=== PATIENT | male | born 1945 | race Caucasian/White ===

== ENCOUNTER 2017-02-10 16:47 | Emergency (ER) | payer MEDICARE, OTHER ==
[2017-02-10 17:14] VITALS: BP 159/90
[2017-02-10 17:16] LABS: CHLORIDE,CL 105 mmol/L (98-107); SODIUM,NA 141 mmol/L (136-145)
--- NOTE | 2017-02-10 17:42 | EDM.PDOC ---
ED HPI GENERAL MEDICAL PROBLEM - General Chief Complaint: Lower Extremity Injury/Pain Stated Complaint: Bilateral calf pain Time Seen by Provider: 02/10/17 17:15 Source of Information: Reports: Patient History Limitations: Reports: No limitations - History of Present Illness INITIAL COMMENTS - FREE TEXT/NARRATIVE: The patient presents with complaint of low back pain in a belt-like fashion and tight and cramping calves that "feel like a rope". He has had the back pain for years and it has increased over the past several months and he was in to see his PCP last week who prescribed PT for him which is to begin soon. He also had had longstanding tightness and cramping in his calves. He has had this for the past several months but it was increasingly severe today. He denies a history of DVT or PE. He denies a history of CO or Stroke. He denies other symptoms or complaints. 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 Has partial upper dentures Cardiovascular History: Reports: High cholesterol, Hypertension, Other (see below) Other Cardiovascular History: Hx. of muscles around heart becoming tight at times. Small blockage on back side of heart. Treating with medication. No stents needed at current time Gastrointestinal History: Reports: GERD Other Gastrointestinal History: Perez's esophageal ulceration Genitourinary History: Reports: BPH, Renal calculus Musculoskeletal History: Reports: Back pain, chronic Endocrine/Metabolic History: Reports: Obesity/BMI 30+ - Infectious Disease History Infectious Disease History: Reports: Chicken pox, Measles - Past Surgical History Cardiovascular Surgical History: Reports: Other (see below) Other Cardiovascular Surgeries/Procedures: Angiograms GI Surgical History: Reports: Colonoscopy, EGD Social & Family History - Tobacco Use Smoking Status *Q: Former Smoker Years of Tobacco use: 50 Packs/Tins Daily: 0.2 Used Tobacco, but Quit: Yes Month Tobacco Last 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 ED EXAM, GENERAL - Physical Exam Exam: See Below Exam Limited By: No limitations General Appearance: alert, WD/WN, no apparent distress Eye Exam: bilateral eye: EOMI, normal inspection Ears: normal external exam, normal canal, hearing grossly normal, normal TMs Ear Exam: bilateral ear: auricle normal, canal normal, TM normal Nose: normal inspection, normal mucosa, no blood Throat/Mouth: Normal inspection, Normal lips, Normal teeth, Normal gums, Normal oropharynx, Normal voice Head: atraumatic, normocephalic Neck: normal inspection, supple, non-tender, full range of motion. No: lymphadenopathy (L), lymphadenopathy (R), tender lateral, tender midline Respiratory/Chest: no respiratory distress, lungs clear, normal breath sounds, no accessory muscle use, chest non-tender Cardiovascular: normal peripheral pulses, regular rate, rhythm, no edema, no gallop, no murmur, no rub GI/Abdominal: normal bowel sounds, soft, non tender, no organomegaly, no distention, no abnormal bruit. No: distended, guarding, rigid, rebound Back Exam: normal inspection, full range of motion, paraspinal tenderness. No: CVA tenderness (L) (Lower lumbar spine with tight muscles. ), CVA tenderness (R) , vertebral tenderness Extremities: normal range of motion, no pedal edema, normal capillary refill, other (Pain on palpation of R > L calf. No erythema or swelling. No palpable cords. Jatin sign equivocal bilaterally. Tight calf muscles R > L.) Neurological: alert, oriented, CN II-XII intact, normal cognition, normal gait, normal reflexes, no motor/sensory deficits Psychiatric: normal affect, normal mood Skin Exam: Warm, Dry, Intact, Normal color, No rash Lymphatic: no adenopathy Course - Vital Signs Last Recorded V/S: Last Vital Signs Temp 37.0 C 02/10/17 17:13 Pulse 78 02/10/17 17:13 Resp 20 02/10/17 17:13 BP 159/90 H 02/10/17 17:13 Pulse Ox 93 L 02/10/17 17:13 - Orders/Labs/Meds Orders: Active Orders 24 hr Category Date Time Status Diazepam [Valium] Med 02/10/17 17:36 Once 10 mg IM ONETIME ONE Labs: Laboratory Tests 02/10/17 02/10/17 02/10/17 Range/Units 17:00 17:00 17:00 WBC 7.1 (4.0-10.2) K/uL RBC 4.80 (4.33-5.41) M/uL Hgb 14.6 (13.1-16.8) g/dL Hct 44.1 (39.0-49.0) % MCV 91.9 (84.0-98.0) fL MCH 30.4 (28.2-33.3) pg MCHC 33.1 (31.7-36.0) g/dL RDW 12.6 (11.2-14.1) % Plt Count 232 (150-350) K/uL Neut % (Auto) 65.7 (45.0-80.0) % Lymph % (Auto) 23.8 (10.0-50.0) % Oliver % (Auto) 7.9 (2.0-14.0) % Eos % (Auto) 1.6 (0.0-5.0) % Baso % (Auto) 1.0 (0.0-2.0) % Neut # (Auto) 4.66 (1.40-7.00) K/uL Lymph # (Auto) 1.69 (0.50-3.50) K/uL Oliver # (Auto) 0.56 (0.00-1.00) K/uL Eos # (Auto) 0.11 (0.00-0.50) K/uL Baso # (Auto) 0.07 (0.00-0.20) K/uL D-Dimer, Quantitative 171 (0-400) ng/mL Sodium 141 (136-145) mmol/L Potassium 4.1 (3.5-5.1) mmol/L Chloride 105 (98-107) mmol/L Carbon Dioxide 30.8 (21.0-32.0) mmol/L BUN 18 (7-18) mg/dL Creatinine 1.17 (0.51-1.17) mg/dL Est Cr Clr Drug Dosing 63.47 mL/min Estimated GFR (MDRD) > 60 mL/min Glucose 97 (74-106) mg/dL Calcium 8.9 (8.5-10.1) mg/dL Total Bilirubin 0.5 (0.2-1.0) mg/dL AST 23 (15-37) U/L ALT 30 (12-78) U/L Alkaline Phosphatase 73 (46-116) IU/L C-Reactive Protein < 0.1 (<=0.9) mg/dL Total Protein 7.1 (6.4-8.2) g/dL Albumin 3.8 (3.4-5.0) g/dL Specimen Type Urine Color Urine Appearance Urine pH (5.0-9.0) Ur Specific Mathews (1.005-1.030) Urine Protein (NEGATIVE) mg/dL Urine Glucose (UA) (NEGATIVE) mg/dL Urine Ketones (NEGATIVE) mg/dL Urine Occult Blood (NEGATIVE) Urine Nitrite (NEGATIVE) Urine Bilirubin (NEGATIVE) Urine Urobilinogen (0.2-1.0) E.U./dL Ur Leukocyte Esterase (NEGATIVE) Urine RBC /HPF Urine WBC /HPF Ur Epithelial Cells /LPF Urine Bacteria (NONE TO FEW) /HPF 02/10/17 Range/Units 17:00 WBC (4.0-10.2) K/uL RBC (4.33-5.41) M/uL Hgb (13.1-16.8) g/dL Hct (39.0-49.0) % MCV (84.0-98.0) fL MCH (28.2-33.3) pg MCHC (31.7-36.0) g/dL RDW (11.2-14.1) % Plt Count (150-350) K/uL Neut % (Auto) (45.0-80.0) % Lymph % (Auto) (10.0-50.0) % Oliver % (Auto) (2.0-14.0) % Eos % (Auto) (0.0-5.0) % Baso % (Auto) (0.0-2.0) % Neut # (Auto) (1.40-7.00) K/uL Lymph # (Auto) (0.50-3.50) K/uL Oliver # (Auto) (0.00-1.00) K/uL Eos # (Auto) (0.00-0.50) K/uL Baso # (Auto) (0.00-0.20) K/uL D-Dimer, Quantitative (0-400) ng/mL Sodium (136-145) mmol/L Potassium (3.5-5.1) mmol/L Chloride (98-107) mmol/L Carbon Dioxide (21.0-32.0) mmol/L BUN (7-18) mg/dL Creatinine (0.51-1.17) mg/dL Est Cr Clr Drug Dosing mL/min Estimated GFR (MDRD) mL/min Glucose (74-106) mg/dL Calcium (8.5-10.1) mg/dL Total Bilirubin (0.2-1.0) mg/dL AST (15-37) U/L ALT (12-78) U/L Alkaline Phosphatase (46-116) IU/L C-Reactive Protein (<=0.9) mg/dL Total Protein (6.4-8.2) g/dL Albumin (3.4-5.0) g/dL Specimen Type Urinvoid Urine Color Yellow Urine Appearance Clear Urine pH 5.5 (5.0-9.0) Ur Specific Mathews >= 1.030 (1.005-1.030) Urine Protein Negative (NEGATIVE) mg/dL Urine Glucose (UA) Negative (NEGATIVE) mg/dL Urine Ketones Negative (NEGATIVE) mg/dL Urine Occult Blood Trace-lysed H (NEGATIVE) Urine Nitrite Negative (NEGATIVE) Urine Bilirubin Negative (NEGATIVE) Urine Urobilinogen 0.2 (0.2-1.0) E.U./dL Ur Leukocyte Esterase Negative (NEGATIVE) Urine RBC 0-5 /HPF Urine WBC Not seen /HPF Ur Epithelial Cells Not seen /LPF Urine Bacteria Not seen (NONE TO FEW) /HPF Departure - Departure Time of Disposition: 17:42 Disposition: Home, Self-Care 01 Clinical Impression: Muscle spasm of calf, Muscle spasm of back, Muscle cramps Forms: ED Department Discharge - My Orders Last 24 Hours: My Active Orders 02/10/17 17:36 Diazepam [Valium] 10 mg IM ONETIME ONE - Assessment/Plan Last 24 Hours: My Active Orders 02/10/17 17:36 Diazepam [Valium] 10 mg IM ONETIME ONE Assessment:: Muscle cramps and spasm of lower back and bilateral calves. Plan: 1. Discussed given history, exam, and lab findings muscle cramp and spasm most likely cause of pain. Discussed DVT unlikely but possibility is not 0%. Discussed I did not feel given above that transfer for Duplex ultrasound was indicated but discussed with patient and who agree and refuse further evaluation at this time. 2. Toradol 60 mg IM in ER. 3. Valium 10 mg IM in ER. 4. Offered prescription of Flexeril but patient and indicated it has not worked in the past and they would like to assess how ER regimen helps with pain and discuss oral muscle relaxers with their PCP. 5. Followup with PCP next week in clinic. 6. Return to ER with refractory chest pain, shortness of breath, increased/ refractory pain of calves or swelling.
[2017-02-10] MEDS ORDERED: Ketorolac 60 MG/2 ML SDV IM ONE (18:03)
== END 2017-02-10 18:55 | disposition home or self-care (01) ==
LOC: LL.ED 16:47
DX: M62.830 Muscle spasm of back (principal); M62.831 Muscle spasm of calf; E78.00 Pure hypercholesterolemia, unspecified; I10 Essential (primary) hypertension; K21.9 Gastro-esophageal reflux disease without esophagitis; E66.9 Obesity, unspecified; Z87.891 Personal history of nicotine dependence; Z88.5 Allergy status to narcotic agent; Z79.899 Other long term (current) drug therapy
CPT/HCPCS: 36415; 80053; 81001; 85025; 85379; 86140; 96372; 99283; J1885; J3360

== ENCOUNTER 2017-05-28 12:32 | Inpatient (IN) | payer MEDICARE, OTHER ==
[2017-05-28] MEDS ORDERED: Ticagrelor 90 MG Tab PO ONE (12:35)
[2017-05-28] MEDS ORDERED: Aspirin 81 MG Tab.Chew CHEW ONE (12:35)
[2017-05-28] MEDS ORDERED: Famotidine 20 MG/2 ML SDV IVPUSH ONE (12:35)
[2017-05-28] MEDS ORDERED: Metoprolol Tartrate 5 MG/5 ML SDV IVPUSH ONE (12:35)
--- NOTE | 2017-05-28 12:35 | EDM.PDOC ---
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 He has had some nonspecific fatigue during the last week. He did not take any medications for the above symptoms, although secondary to finances he has been only taking 20 mg of Prilosec daily rather than the previously recommended 40 mg daily dose. The patient denies any heart flutter, dizziness, orthostasis, orthopnea, diaphoresis, paresthesias, recent decreased exercise tolerance, or any other anginal-type symptoms. No recent history of abdominal pain, heartburn, nausea, diarrhea, melena, gross hematochezia, or any food intolerance, including fatty foods, etc., despite his noncompliance with Prilosec as above. The patient also denies any recent fever, cough, wheezing, dyspnea, etc.. No history of recent headaches, visual changes, diplopia, change in mental status, or other change in neurological status. Onset: Today, Sudden Onset Date: 05/28/17 Onset Time: 08:30 Duration: Constant Location: Reports: Chest. Denies: Head, Face, Neck, Abdomen, Back, Upper Extremity, Left, Upper Extremity, Right, Radiates to Quality: Reports: Pressure, Same as Previous Episode Severity: Moderate Improves with: Reports: None Worsens with: Reports: None Context: Reports: Other (As above) Associated Symptoms: Reports: Chest Pain. 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 Denies: Cataract, Glaucoma, Hard of Hearing, Macular Degeneration, Retinal Detachment Other HEENT History: Grain dust allergic rhinitis, patient wears glasses Cardiovascular History: Reports: Blood Clots/VTE/DVT, CAD, High Cholesterol, Hypertension, Other (See Below). 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 Denies : Acute Renal Failure, Chronic Renal Insuffiency, Dialysis, STD, Urinary Incontinence, UTI, Recurrent Other Genitourinary History: Right-sided urolithiasis 2 in 2001 and 2002 with lithotripsy required as below Musculoskeletal History: Reports: Arthritis, Back Pain, Chronic, Neck Pain, Chronic, Osteoarthritis. Denies: Fracture, Gout, RA, SLE Neurological History: Reports: None. Denies: Alzheimers Disease, Brain Injury, Cerebral Aneurysms, Concussion, CVA, Headaches, Chronic, Head Trauma, Migraines , Neuropathy, Peripheral, Parkinson's, Seizure, TIA Psychiatric History: Reports: None. Denies: Abuse, Victim of, ADD, ADHD, Addiction, Anxiety, Depression, Psych Hospitalization(s), PTSD, Suicide Attempt , Suicidal Ideation Endocrine/Metabolic History: Reports: None. Denies: Diabetes, Type I, Diabetes , Type II, IDDM Hematologic History: Reports: None. Denies: Anemia, B12 Deficiency, Blood Transfusion(s), Iron Deficiency Immunologic History: Reports: None. Denies: AIDS, HIV, SLE Oncologic (Cancer) History: Reports: None. Denies: Basal Cell Carcinoma, Colon , Hodgkin's Lymphoma, Leukemia, Malignant Melanoma, Non-Hodgkin's Lymphoma, Prostate, Squamous Cell Carcinoma Dermatologic History: Reports: None. Denies: Eczema, Psoriasis - Infectious Disease History Infectious Disease History: Reports: Chicken Pox, Measles. Denies: C-Difficile , Meningitis, Mononucleosis, MRSA, Mumps, Pertussis (Whooping Cough), Rheumatic Fever, Rubella, Scarlet Fever, Shingles, TB, VRE - Past Surgical History Head Surgeries/Procedures: Reports: None HEENT Surgical History: Reports: Oral Surgery, Tonsillectomy, Other (See Below) . Denies: Cataract Surgery, Eye Surgery, Laser Surgery, LASIK, Myringotomy w Tube(s), Naso-Sinus Surgery Other HEENT Surgeries/Procedures: Tonsillectomy at age 12, multiple teeth extractions with partial upper dentures currently Cardiovascular Surgical History: Denies: Coronary Artery Stent, Pacer, Percutaneous Transluminal Angioplasty, Varicose Respiratory Surgical History: Reports: None. Denies: Lung Biopsies, Thoracentesis GI Surgical History: Reports: Colonoscopy, EGD, Polypectomy, Other (See Below). Denies: Appendectomy, Cholecystectomy, Hernia, Abdominal, Hernia, Inguinal, Hernia Repair/Other Other GI Surgeries/Procedures: EGD on 06/03/15, 03/05/15, and 05/08/13 with previous history of excision of multiple benign colonic polyps, last colonoscopy on 05/09/12 Male Surgical History: Reports: Circumcision, Renal Calculus, Ureteral Stent , Other (See Below). Denies: Prostate Biopsy, TURBT-Transurethral Resection of Bladder Tumor, Vasectomy Other Male Surgeries/Procedures: History of right-sided lithotripsy and subsequent ureteral stent placement in 2001 and 2002, circumcision as an infant Endocrine Surgical History: Reports: None. Denies: Thyroid Biopsy Neurological Surgical History: Reports: None. Denies: C-Spine, Discectomy, Laminectomy, Lumbar Spine, Scoliosis, Vertebroplasty Musculoskeletal Surgical History: Reports: None. Denies: Arthroscopic Knee, Arthroscopic Procedure, Carpal Tunnel, Ganglion Cyst, Joint Replacement, ORIF, Shoulder Surgery Oncologic Surgical History: Reports: None Dermatological Surgical History: Reports: None - Past Imaging History Past Imaging History: Reports: Angiography (Mildly positive heart catheterization in 2008 as above), Stress Testing (Normal exercise cardiac stress test and 2008) Social & Family History - Family History HEENT: Reports: Macular Degeneration, Other (See Below). Denies: Cataract, Glaucoma, Retinal Detachment Other HEENT Family History: Brother with macular degeneration Cardiac: Reports: CAD, NC, Other (See Below). Denies: Afib, Aneurysm, Arrhythmia, Blood Clots/VTE/DVT, Heart Failure, Heart Murmur, High Cholesterol, Hypertension, PVD/COD, Syncope Other Cardiac Family History: Brothers 2 with history of MIs with 1 brother having a triple CABG in his 50s, Respiratory: Reports: COPD, Other (See Below). Denies: Asthma, PE, Pneumothorax , Sleep Apnea, TB Other Respiratory Family Hisory: Brother with history of COPD with no history of tobacco use GI: Reports: None. Denies: Celiac Disease, Cholelithiasis, Colon Polyps, Inflammatory Bowel Disease, Irritable Bowel Syndrome, PUD : Reports: None. Denies: Dialysis, Renal Calculus, Renal Disease/ Insufficiency OBGYN: Reports: None. Denies: Endometriosis, Recurrent Spontaneous Musculoskeletal: Reports: Arthritis, Osteoarthritis, Other (See Below). Denies : Gout, RA, SLE Other Musculoskeletal Family History: Osteoarthritis in mother Neurological: Reports: CVA, Other (See Below). Denies: Alzheimers Disease, Cerebral Aneurysms, Dementia, Frequent Repetitive Habits (TICS), Migraines, MS, Neuropathy, Diabetic, Neuropathy, Peripheral, Parkinson's, Seizure, TIA Other Neurological Family History: Brother with CVA in his 80s Psychiatric: Reports: None. Denies: Abuse, Victim of, ADD, ADHD, Anxiety, Depression, Psych Hospitalization(s), PTSD, Suicide Attempt Endocrine/Metabolic: Reports: None. Denies: Diabetes, Type I, Diabetes, type II , Hypothyroidism, IDDM Hematologic: Reports: None. Denies: Anemia Immunologic: Reports: None. Denies: AIDS, HIV, SLE Dermatologic: Reports: None. Denies: Eczema, Psoriasis Oncologic: Reports: Other (See Below) Other Oncologic Family History: Multiple maternal uncles and aunts from unknown type of cancers in their 70s and 80s, mother with unknown type of fatal metastatic abdominal cancer in her 70s - Tobacco Use Smoking Status *Q: Current Every Day Smoker Tobacco Use Within Last Twelve Months: Snuff/Dip Years of Tobacco use: 50 (Started chewing tobacco use at age 15 with previous maximum use of 2 boxes per week and previous occasional cigarette use) Packs/Tins Daily: 0.1 Used Tobacco, but Quit: Yes Smoking Cessation Information Provided To Patient: Yes Second Hand Smoke Exposure: No Second Hand Smoke Education Provided: No - Caffeine Use Caffeine Use: Reports: Soda (4 sodas per day). Denies: Coffee, Energy Drinks, Tea - Alcohol Use Alcohol Use History: Yes Days Per Week of Alcohol Use: 0 (DWI in about 1983 although no history of alcohol abuse or treatment) Number of Drinks Per Day: 2 (Usually beer twice per month) Total Drinks Per Week: 0 Alcohol Use in Last Twelve Months: Yes Alcohol Use Frequency: Socially - Recreational Drug Use Recreational Drug Use: No Drug Use in Last 12 Months: No Recreational Drug Type: Denies: Amphetamines (Speed), Cocaine, Heroin, Inhalants (Glues, Solvents, Aerosols), LSD (Acid), Marijuana/Hashish, Methamphetamine, Morphine - Living Situation & Occupation Living situation: Reports: (2000, no children), with Family (With ) 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 Denies: Fever, Chills , Weakness, Night Sweats, Diaphoresis, Decreased Appetite, Weight Loss, Weight Gain HEENT: Reports: Glasses. Denies: Contact Lenses, Dental Pain, Ear Discharge, Ear Pain, Eye Pain, Hearing Loss, Rhinitis, Sinus Problem, Throat Pain, Vertigo , Vision Change Respiratory: Reports: No Symptoms, Cough. Denies: Shortness of Breath, Wheezing , Pleuritic Chest Pain, Sputum Cardiovascular: Reports: Chest Pain. Denies: Blood Pressure Problem, Claudication, Dyspnea on Exertion, Edema, Lightheadedness, Orthopnea, Palpitations, Syncope Endocrine: Reports: Fatigue GI/Abdominal: Reports: No Symptoms. Denies: Abdominal Pain, Anorexia, Black Stool, Bloody Stool, Constipation, Diarrhea, Decreased Appetite, Difficulty Swallowing, Distension, Flatus, Hematemesis, Hematochezia, Melena, Nausea, Stool Incontinence, Vomiting : Reports: No Symptoms. Denies: Discharge, Dysuria, Flank Pain, Frequency, Hematuria, Incontinence, Pain, Urgency, Urinary Retention Musculoskeletal: Reports: No Symptoms. Denies: Neck Pain, Shoulder Pain, Arm Pain, Back Pain, Leg Pain Skin: Reports: No Symptoms. Denies: Diaphoresis, Bruising, Wound Neurological: Reports: No Symptoms. Denies: Confusion, Dizziness, Headache, Numbness, Paresthesia, Tingling, Weakness Psychiatric: Reports: No Symptoms. Denies: Agitation, Anxiety, Confusion, Depression, Hallucinations Hematologic/Lymphatic: Reports: No Symptoms Immunologic: Reports: No Symptoms ED EXAM, GENERAL - Physical Exam Exam: See Below Exam Limited By: No Limitations General Appearance: Alert, WD/WN, No Apparent Distress Eye Exam: Bilateral Eye: EOMI, Normal Inspection (No nystagmus), PERRL Ears: Normal External Exam, Normal Canal, Hearing Grossly Normal, Normal TMs Nose: Normal Inspection, Normal Mucosa, No Blood Throat/Mouth: Normal Inspection, Normal Lips, Normal Gums, Normal Oropharynx, Normal Voice, No Airway Compromise. No: Normal Teeth (Partial upper dentures of multiple missing teeth lowers), Dysphagia, Inflammation Head: Atraumatic, Normocephalic. No: Facial Swelling, Facial Tenderness, Sinus Tenderness Neck: Supple, Non-Tender, Full Range of Motion, Carotid Bruit (Mild bilateral carotid bruits). No: Lymphadenopathy (L), Lymphadenopathy (R), Thyromegaly Respiratory/Chest: No Respiratory Distress, Lungs Clear, Normal Breath Sounds, No Accessory Muscle Use, Chest Non-Tender. No: Pleural Rub, Retractions Cardiovascular: Normal Peripheral Pulses, Regular Rate, Rhythm, No Edema, No Gallop, No JVD, No Murmur, No Rub. No: Gallop/S3, Gallop/S4, Friction Rub Peripheral Pulses: 2+: Radial (L), Radial (R), Dorsalis Pedis (L), Dorsalis Pedis (R) GI/Abdominal: Normal Bowel Sounds, Soft, Non-Tender, No Organomegaly, No Distention, No Abnormal Bruit, No Mass, Pelvis Stable. No: Guarding (Male) Exam: Deferred Rectal (Males) Exam: Deferred Back Exam: Normal Inspection, Full Range of Motion. No: CVA Tenderness (L), CVA Tenderness (R), Muscle Spasm Extremities: Normal Inspection, Normal Range of Motion, Non-Tender, No Pedal Edema, Normal Capillary Refill. No: Pedal Edema, Jatin's Sign Neurological: Alert, Oriented, CN II-XII Intact, Normal Cognition, Normal Gait, Normal Reflexes (Negative Babinski's), No Motor/Sensory Deficits Psychiatric: Normal Affect, Normal Mood Skin Exam: Warm, Dry, Intact, Normal Color, No Rash. No: Ecchymosis, Petechiae , Wound/Incision Lymphatic: No Adenopathy EKG INTERPRETATION EKG Date: 05/28/17 Time: 12:41 Rhythm: NSR Rate (Beats/Min): 76 [place]: Normal (Left cardiac axis) QRS: RBBB (QRS interval of 0.12 seconds representing a complete right bundle branch block with borderline T-wave inversion in lead V1 with T-wave inversion in lead 3) ST-T: Normal QT: Normal IL/PQ Interval: 0.15 seconds with mild poor R-wave progression in the anterior leads Comparison: NA - No Prior EKG EKG Interpretation Comments: 1. No acute ischemic changes 2. Complete right bundle branch block Course - Vital Signs Last Recorded V/S: Last Vital Signs Temp 37.2 C 05/28/17 12:32 Pulse 62 05/28/17 15:24 Resp 15 05/28/17 15:24 BP 147/84 H 05/28/17 15:24 Pulse Ox 100 05/28/17 15:24 Vital Signs - 24 hr 05/28/17 05/28/17 05/28/17 12:32 12:35 13:00 Temperature [ 37.2 C Temporal] Pulse, Peripheral Pulse, 79 66 84 Peripheral [ Pulse Oximetry] Respiratory 18 15 17 Rate Blood Pressure Blood Pressure 159/76 H 147/86 H 146/70 H [Right Upper Arm] O2 Sat by Pulse 100 100 100 Oximetry O2 Sat by Pulse 100 Oximetry [ Nasal Cannula] 05/28/17 05/28/17 05/28/17 13:10 13:15 14:02 Temperature [ Temporal] Pulse, 80 Peripheral Pulse, 70 69 Peripheral [ Pulse Oximetry] Respiratory 16 15 Rate Blood Pressure 151/76 H Blood Pressure 151/76 H 145/75 H [Right Upper Arm] O2 Sat by Pulse 100 100 Oximetry O2 Sat by Pulse Oximetry [ Nasal Cannula] 05/28/17 05/28/17 05/28/17 14:08 15:06 15:24 Temperature [ Temporal] Pulse, Peripheral Pulse, 63 62 Peripheral [ Pulse Oximetry] Respiratory 14 15 Rate Blood Pressure Blood Pressure 145/97 H 147/84 H [Right Upper Arm] O2 Sat by Pulse 100 100 Oximetry O2 Sat by Pulse 100 Oximetry [ Nasal Cannula] - Orders/Labs/Meds Orders: Active Orders 24 hr Category Date Time Status Cardiac Monitoring [RC] . DIRECTED Care 05/28/17 12:35 Active EKG Documentation Completion [RC] ASDIRECTED Care 05/28/17 12:35 Active Oxygen Therapy, ED [RC] CONTINUOUS Care 05/28/17 12:35 Active Peripheral IV Care [RC] . DIRECTED Care 05/28/17 12:35 Active Pulse Oximetry [RC] CONTINUOUS Care 05/28/17 12:35 Active Up With Assistance [RC] PFP Care 05/28/17 12:35 Active Vital Signs [RC] PFP Care 05/28/17 12:35 Active Nothing per Oral Now Diet [DIET] Diet 05/28/17 Breakfast Active Chest 1V Frontal [CR] Stat Exams 05/28/17 12:35 Taken Furosemide [Lasix] Med 05/28/17 14:00 Active 40 mg IVPUSH Q8H Sodium Chloride 0.9% [Saline Flush] Med 05/28/17 12:35 Active 10 ml FLUSH ASDIRECTED PRN Obtain Past Medical Record [OM.PC] Urgent Oth 05/28/17 12:35 Active Peripheral IV Insertion Adult [OM.PC] Stat Oth 05/28/17 12:35 Ordered Resuscitation Status Stat Resus Stat 05/28/17 12:35 Ordered Medication Orders Furosemide (Lasix) 40 mg IVPUSH Q8H [facility] Last Admin: 05/28/17 13:57 Dose: 40 mg Sodium Chloride (Saline Flush) 10 ml FLUSH ASDIRECTED PRN PRN Reason: Keep Vein Open Last Admin: 05/28/17 13:58 Dose: 10 ml Admin: 05/28/17 13:18 Dose: 10 ml Admin: 05/28/17 13:15 Dose: 10 ml Labs: Laboratory Tests 05/28/17 05/28/17 05/28/17 Range/Units 12:55 12:55 12:55 WBC 6.6 (4.0-10.2) K/uL RBC 4.90 (4.33-5.41) M/uL Hgb 15.3 (13.1-16.8) g/dL Hct 45.1 (39.0-49.0) % MCV 92.0 (84.0-98.0) fL MCH 31.2 (28.2-33.3) pg MCHC 33.9 (31.7-36.0) g/dL RDW 12.8 (11.2-14.1) % Plt Count 249 (150-350) K/uL Neut % (Auto) 63.9 (45.0-80.0) % Lymph % (Auto) 27.3 (10.0-50.0) % [place] % (Auto) 7.2 (2.0-14.0) % Eos % (Auto) 1.4 (0.0-5.0) % Baso % (Auto) 0.2 (0.0-2.0) % Neut # (Auto) 4.20 (1.40-7.00) K/uL Lymph # (Auto) 1.79 (0.50-3.50) K/uL [place] # (Auto) 0.47 (0.00-1.00) K/uL Eos # (Auto) 0.09 (0.00-0.50) K/uL Baso # (Auto) 0.01 (0.00-0.20) K/uL PT 10.3 (9.8-11.7) SEC INR 1.0 APTT 25.1 (23.5-30.0) SEC D-Dimer, Quantitative 152 (0-400) ng/mL Sodium (136-145) mmol/L Potassium (3.5-5.1) mmol/L Chloride (98-107) mmol/L Carbon Dioxide (21.0-32.0) mmol/L BUN (7-18) mg/dL Creatinine (0.51-1.17) mg/dL Est Cr Clr Drug Dosing Estimated GFR (MDRD) mL/min Glucose (74-106) mg/dL Lactic Acid (0.4-2.0) mmol/L Uric Acid (2.6-7.2) mg/dL Calcium (8.5-10.1) mg/dL Magnesium (1.8-2.4) mg/dL Total Bilirubin (0.2-1.0) mg/dL AST (15-37) U/L ALT (12-78) U/L Alkaline Phosphatase (46-116) IU/L Creatine Kinase (26-308) U/L Creatine Kinase Index (0.0-2.5) % CK-MB (CK-2) (0.00-3.60) ng/mL Troponin I (0.000-0.056) ng/mL Sbe-P-Bidiihxaxeb Pept (0-125) pg/mL Total Protein (6.4-8.2) g/dL Albumin (3.4-5.0) g/dL TSH, Ultra Sensitive (0.358-3.740) mIU/mL 05/28/17 05/28/17 Range/Units 12:55 12:55 WBC (4.0-10.2) K/uL RBC (4.33-5.41) M/uL Hgb (13.1-16.8) g/dL Hct (39.0-49.0) % MCV (84.0-98.0) fL MCH (28.2-33.3) pg MCHC (31.7-36.0) g/dL RDW (11.2-14.1) % Plt Count (150-350) K/uL Neut % (Auto) (45.0-80.0) % Lymph % (Auto) (10.0-50.0) % [place] % (Auto) (2.0-14.0) % Eos % (Auto) (0.0-5.0) % Baso % (Auto) (0.0-2.0) % Neut # (Auto) (1.40-7.00) K/uL Lymph # (Auto) (0.50-3.50) K/uL [place] # (Auto) (0.00-1.00) K/uL Eos # (Auto) (0.00-0.50) K/uL Baso # (Auto) (0.00-0.20) K/uL PT (9.8-11.7) SEC INR APTT (23.5-30.0) SEC D-Dimer, Quantitative (0-400) ng/mL Sodium 139 (136-145) mmol/L Potassium 3.7 (3.5-5.1) mmol/L Chloride 102 (98-107) mmol/L Carbon Dioxide 30.9 (21.0-32.0) mmol/L BUN 15 (7-18) mg/dL Creatinine 1.01 (0.51-1.17) mg/dL Est Cr Clr Drug Dosing TNP Estimated GFR (MDRD) > 60 mL/min Glucose 102 (74-106) mg/dL Lactic Acid 1.1 (0.4-2.0) mmol/L Uric Acid 5.4 (2.6-7.2) mg/dL Calcium 8.7 (8.5-10.1) mg/dL Magnesium 1.9 (1.8-2.4) mg/dL Total Bilirubin 0.8 (0.2-1.0) mg/dL AST 16 (15-37) U/L ALT 27 (12-78) U/L Alkaline Phosphatase 76 (46-116) IU/L Creatine Kinase 95 (26-308) U/L Creatine Kinase Index 1.5 (0.0-2.5) % CK-MB (CK-2) 1.40 (0.00-3.60) ng/mL Troponin I 0.009 (0.000-0.056) ng/mL [id number]-Jurlfumnjwk Pept 286 H (0-125) pg/mL Total Protein 7.1 (6.4-8.2) g/dL Albumin 3.8 (3.4-5.0) g/dL TSH, Ultra Sensitive 0.893 (0.358-3.740) mIU/mL Meds: Medications Generic Name Dose Route Start Last Admin Trade Name Freq PRN Reason Stop Dose Admin Furosemide 40 mg 05/28/17 14:00 05/28/17 13:57 Lasix IVPUSH 40 mg Q8H ERICA Administration Sodium Chloride 10 ml 05/28/17 12:35 05/28/17 13:58 Saline Flush FLUSH 10 ml ASDIRECTED PRN Administration Keep Vein Open Discontinued Medications Generic Name Dose Route Start Last Admin Trade Name Freq PRN Reason Stop Dose Admin Aspirin 324 mg 05/28/17 12:35 05/28/17 13:08 Aspirin CHEW 05/28/17 12:36 324 mg ONETIME ONE Administration Famotidine 40 mg 05/28/17 12:35 05/28/17 13:15 Pepcid IVPUSH 05/28/17 12:36 40 mg ONETIME ONE Administration Metoprolol Tartrate 2.5 mg 05/28/17 12:35 05/28/17 13:10 Lopressor IVPUSH 05/28/17 12:36 2.5 mg ONETIME ONE Administration Ticagrelor 180 mg 05/28/17 12:35 05/28/17 13:09 Brilinta PO 05/28/17 12:36 180 mg ONETIME ONE Administration - Radiology Interpretation Free Text/Narrative:: phototypesetting equipment monitor shows normal sinus rhythm with heart rate in the 60s to 70s with one PAC prior to admission but no other significant ectopy or arrhythmia Chest x-ray, portable, shows mild aortic valve calcification and prominence of the proximal aortic arch with additional centralized CHF and borderline cardiomegaly. Possible additional COPD and pulmonary hypertension noted with no pulmonary nodules, pneumothorax, pulmonary infiltrates, etc. Departure - Departure Time of Disposition: 16:00 Disposition: Refer to Observation Condition: Good Clinical Impression: Acute coronary syndrome, Peptic reflux disease, Tobacco abuse counseling, Right bundle branch block (RBBB) Hypertension Qualifiers: Hypertension type: essential hypertension Qualified Code(s): I10 - Essential ( primary) hypertension Hyperlipidemia Qualifiers: Hyperlipidemia type: unspecified Qualified Code(s): E78.5 - Hyperlipidemia, unspecified Osteoarthritis Qualifiers: Osteoarthritis location: multiple joints Osteoarthritis type: primary Qualified Code(s): M15.0 - Primary generalized (osteo)arthritis COPD (chronic obstructive pulmonary disease) Qualifiers: COPD type: emphysema Emphysema type: panlobular Qualified Code(s): J43.1 - Panlobular emphysema Coronary artery disease Qualifiers: Coronary Disease-Associated Artery/Lesion type: [place] artery [place] vs. transplanted heart: [place] heart Associated angina: with unstable angina Qualified Code(s): I25.110 - Atherosclerotic heart disease of [place] coronary artery with unstable angina pectoris CHF (congestive heart failure) Qualifiers: Congestive heart failure type: unspecified congestive heart failure type Congestive heart failure chronicity: acute Qualified Code(s): I50.9 - Heart failure, unspecified - Problem List & Annotations (1) Acute coronary syndrome SNOMED Code(s): 810265349 Code(s): I24.9 - ACUTE ISCHEMIC HEART DISEASE, UNSPECIFIED Status: Acute Priority: High Current Visit: Yes Onset Date: 05/28/17 Annotation/Comment: : Chest pain protocol initiated upon patient's arrival to the emergency room. Resolution of chest pain at time of discharge. Initiate standard rule out NC orders. Cardiology consultation depending on his clinical course with recommended outpatient Cardiolite stress test (2) Coronary artery disease SNOMED Code(s): 71893334 Code(s): I25.10 - ATHSCL HEART DISEASE OF [place] CORONARY ARTERY W/O ANG PCTRS Status: Chronic Priority: Medium Current Visit: Yes Annotation/ Comment:: Distant mildly positive heart catheterization as above. However, further repeat cardiac workup during this hospitalization and on an outpatient basis as above. Qualifiers: Coronary Disease-Associated Artery/Lesion type: [place] artery [place] vs. transplanted heart: [place] heart Associated angina: with unstable angina Qualified Code(s): I25.110 - Atherosclerotic heart disease of [place] coronary artery with unstable angina pectoris (3) CHF (congestive heart failure) SNOMED Code(s): 33579560 Code(s): I50.9 - HEART FAILURE, UNSPECIFIED Status: Acute Priority: High Current Visit: Yes Onset Date: 05/28/17 Annotation/Comment:: Echocardiogram tomorrow. Further cardiac workup as above. IV Lasix therapy initiated in the emergency room Qualifiers: Congestive heart failure type: unspecified congestive heart failure type Congestive heart failure chronicity: acute Qualified Code(s): I50.9 - Heart failure, unspecified (4) Peptic reflux disease SNOMED Code(s): 36995780 Code(s): K21.9 - GASTRO-ESOPHAGEAL REFLUX DISEASE WITHOUT ESOPHAGITIS Status: Chronic Priority: Medium Current Visit: Yes Annotation/Comment:: Stable by history, however note some medication noncompliance recently as above. Attempt to obtain H. pylori stool specimen (5) COPD (chronic obstructive pulmonary disease) SNOMED Code(s): 10206798 Code(s): J44.9 - CHRONIC OBSTRUCTIVE PULMONARY DISEASE, UNSPECIFIED Status : Chronic Priority: Medium Current Visit: Yes Annotation/Comment:: COPD by today's chest x-ray. Consider PFTs once his cardiac status has been determined Qualifiers: COPD type: emphysema Emphysema type: panlobular Qualified Code(s): J43.1 - Panlobular emphysema (6) Hyperlipidemia SNOMED Code(s): 35716796 Code(s): E78.5 - HYPERLIPIDEMIA, UNSPECIFIED Status: Acute Priority: Medium Current Visit: Yes Annotation/Comment:: Lipid panel and glycosylated hemoglobin in the a.m. Qualifiers: Hyperlipidemia type: unspecified Qualified Code(s): E78.5 - Hyperlipidemia , unspecified (7) Hypertension SNOMED Code(s): 34603720 Code(s): I10 - ESSENTIAL (PRIMARY) HYPERTENSION Status: Chronic Priority : Medium Current Visit: Yes Annotation/Comment:: Continue to observe closely Qualifiers: Hypertension type: essential hypertension Qualified Code(s): I10 - Essential (primary) hypertension (8) Osteoarthritis SNOMED Code(s): 910833370 Code(s): M19.90 - UNSPECIFIED OSTEOARTHRITIS, UNSPECIFIED SITE Status: Chronic Priority: Medium Current Visit: Yes Annotation/Comment:: Stable by patient history Qualifiers: Osteoarthritis location: multiple joints Osteoarthritis type: primary Qualified Code(s): M15.0 - Primary generalized (osteo)arthritis (9) Tobacco abuse counseling SNOMED Code(s): 361354837, 336629701, 435932890 Code(s): Z71.6 - TOBACCO ABUSE COUNSELING Status: Chronic Priority: Medium Current Visit: Yes Annotation/Comment:: Tobacco cessation strongly encouraged with information to be provided at discharge. Patient was counseled on the use of Nicorette count by me in the emergency room (10) Right bundle branch block (RBBB) SNOMED Code(s): 29550727 Code(s): I45.10 - UNSPECIFIED RIGHT BUNDLE-BRANCH BLOCK Status: Chronic Priority: Medium Current Visit: Yes Onset Date: 05/28/17 Annotation/ Comment:: Newly diagnosed. Non-symptomatic. Observe for now (11) PAC (premature atrial contraction) SNOMED Code(s): 493899631 Code(s): I49.1 - ATRIAL PREMATURE DEPOLARIZATION Status: Acute Priority: Medium Current Visit: Yes Onset Date: 05/28/17 Annotation/Comment:: Newly diagnosed. Nonsymptomatic. Observe for now. IV Lopressor given in the emergency room. - Problem List Review Problem List Initiated/Reviewed/Updated: Yes - My Orders Last 24 Hours: My Active Orders 05/28/17 12:35 Cardiac Monitoring [RC] . DIRECTED EKG Documentation Completion [RC] ASDIRECTED Oxygen Therapy, ED [RC] CONTINUOUS Peripheral IV Care [RC] . DIRECTED Pulse Oximetry [RC] CONTINUOUS Up With Assistance [RC] PFP Vital Signs [RC] PFP Chest 1V Frontal [CR] Stat Sodium Chloride 0.9% [Saline Flush] 10 ml FLUSH ASDIRECTED PRN Obtain Past Medical Record [OM.PC] Urgent Peripheral IV Insertion Adult [OM.PC] Stat Resuscitation Status Stat 05/28/17 14:00 Furosemide [Lasix] 40 mg IVPUSH Q8H 05/28/17 Breakfast Nothing per Oral Now Diet [DIET] - Assessment/Plan Admission H&P: Please use this note as an admission H&P Last 24 Hours: My Active Orders 05/28/17 12:35 Cardiac Monitoring [RC] . DIRECTED EKG Documentation Completion [RC] ASDIRECTED Oxygen Therapy, ED [RC] CONTINUOUS Peripheral IV Care [RC] . DIRECTED Pulse Oximetry [RC] CONTINUOUS Up With Assistance [RC] PFP Vital Signs [RC] PFP Chest 1V Frontal [CR] Stat Sodium Chloride 0.9% [Saline Flush] 10 ml FLUSH ASDIRECTED PRN Obtain Past Medical Record [OM.PC] Urgent Peripheral IV Insertion Adult [OM.PC] Stat Resuscitation Status Stat 05/28/17 14:00 Furosemide [Lasix] 40 mg IVPUSH Q8H 05/28/17 Breakfast Nothing per Oral Now Diet [DIET] Assessment:: As above Plan: As above. Extensive precautions were given to the patient and his , who are in agreement with the treatment plan. The patient's condition is stable enough for observation status and general supervision.
[2017-05-28] MEDS: Sodium Chloride 0.9% 10 ML Syringe FLUSH PRN ×4 (13:15→23:09)
[2017-05-28 13:40] LABS: CHLORIDE,CL 102 mmol/L (98-107); SODIUM,NA 139 mmol/L (136-145)
[2017-05-28] MEDS: Furosemide 40 MG/4 ML VIAL IVPUSH SCH ×2 (13:57→23:08)
[2017-05-28] MEDS ORDERED: Temazepam 15 MG Cap PO PRN (16:22)
[2017-05-28] MEDS ORDERED: Sodium Chloride 0.9% 10 ML Syringe FLUSH PRN (16:22)
[2017-05-28] MEDS ORDERED: Acetaminophen 325 MG Tab PO PRN (16:22)
[2017-05-28] MEDS: Simvastatin 20 MG Tab PO SCH (17:48)
[2017-05-28] MEDS: Potassium Chloride 20 MEQ Tab.ER PO SCH (17:49)
[2017-05-29] MEDS: Sodium Chloride 0.9% 10 ML Syringe FLUSH PRN ×2 (06:16→17:44)
[2017-05-29] MEDS: Furosemide 40 MG/4 ML VIAL IVPUSH SCH ×2 (06:16→17:42)
[2017-05-29] MEDS: Potassium Chloride 20 MEQ Tab.ER PO SCH ×3 (07:25→17:40)
--- NOTE | 2017-05-29 10:04 | PCM.DCSUM1 ---
Discharge Summary - Hospital Course HPI Initial Comments: See emergency room note/admission H&P Brief History: See emergency room note/admission H&P - Discharge Data Discharge Date: 05/29/17 Discharge Disposition: Home, Self-Care 01 Condition: Good - Discharge Diagnosis/Problem(s) (1) Acute coronary syndrome SNOMED Code(s): 723614598 ICD Code: I24.9 - ACUTE ISCHEMIC HEART DISEASE, UNSPECIFIED Status: Acute Priority: High Current Visit: Yes Onset Date: 05/28/17 Problem Details: Negative workup for acute [place] with serial cardiac enzymes 4 as below. Chest pain protocol was initiated upon patient's arrival to the emergency room. Resolution of chest pain at time of discharge both from the emergency room and prior to hospitalization discharge. Cardiology consultation depending on his clinical course with outpatient Cardiolite stress test to be conducted with me in one week with subsequent follow-up with his regular provider, Douglas Zavala M.D., at the [facility]. Activity restrictions discussed prior to discharge. Work excuse also provided (2) Coronary artery disease SNOMED Code(s): 48281164 ICD Code: I25.10 - ATHSCL HEART DISEASE OF [place] CORONARY ARTERY W/O ANG PCTRS Status: Chronic Priority: Medium Current Visit: Yes Problem Details: Distant mildly positive heart catheterization as above. However, further repeat cardiac workup as above. Qualifiers: Coronary Disease-Associated Artery/Lesion type: [place] artery [place] vs. transplanted heart: [place] heart Associated angina: with unstable angina Qualified Code(s): I25.110 - Atherosclerotic heart disease of [place] coronary artery with unstable angina pectoris (3) CHF (congestive heart failure) SNOMED Code(s): 23590279 ICD Code: I50.9 - HEART FAILURE, UNSPECIFIED Status: Acute Priority: High Current Visit: Yes Onset Date: 05/28/17 Problem Details: Echocardiogram today with preliminary verbal report from the perinatal technician as above. tomorrow. Further cardiac workup as above. IV Lasix therapy initiated in the emergency room with some mild secondary renal insufficiency. Adjust his medications as per discharge instructions with blood work prior to stress test as above. Despite clinical improvement some increase of his BNP this morning. Initiate additional oral Lasix, potassium chloride, and lisinopril at discharge Qualifiers: Congestive heart failure type: unspecified congestive heart failure type Congestive heart failure chronicity: acute Qualified Code(s): I50.9 - Heart failure, unspecified (4) Peptic reflux disease SNOMED Code(s): 97029859 ICD Code: K21.9 - GASTRO-ESOPHAGEAL REFLUX DISEASE WITHOUT ESOPHAGITIS Status: Chronic Priority: Medium Current Visit: Yes Problem Details: Stable by history, however note some medication noncompliance recently as per emergency room note. Unable to obtain H. pylori stool specimen during this hospitalization. Nonspecific abdominal cramping as above with further GI workup depending on his clinical course. Resume previous Prilosec at discharge (5) COPD (chronic obstructive pulmonary disease) SNOMED Code(s): 41179109 ICD Code: J44.9 - CHRONIC OBSTRUCTIVE PULMONARY DISEASE, UNSPECIFIED Status : Chronic Priority: Medium Current Visit: Yes Problem Details: COPD by today's chest x-ray. Consider PFTs once his cardiac status has been determined Qualifiers: COPD type: emphysema Emphysema type: panlobular Qualified Code(s): J43.1 - Panlobular emphysema (6) Hyperlipidemia SNOMED Code(s): 51888063 ICD Code: E78.5 - HYPERLIPIDEMIA, UNSPECIFIED Status: Acute Priority: Medium Current Visit: Yes Problem Details: Lipid panel and glycosylated hemoglobin were normal today. Qualifiers: Hyperlipidemia type: unspecified Qualified Code(s): E78.5 - Hyperlipidemia , unspecified (7) Hypertension SNOMED Code(s): 59316213 ICD Code: I10 - ESSENTIAL (PRIMARY) HYPERTENSION Status: Chronic Priority : Medium Current Visit: Yes Problem Details: Blood pressure is under good control during this hospitalization. Continue to observe closely by his regular provider Qualifiers: Hypertension type: essential hypertension Qualified Code(s): I10 - Essential (primary) hypertension (8) Osteoarthritis SNOMED Code(s): 641243053 ICD Code: M19.90 - UNSPECIFIED OSTEOARTHRITIS, UNSPECIFIED SITE Status: Chronic Priority: Medium Current Visit: Yes Problem Details: Stable by patient history Qualifiers: Osteoarthritis location: multiple joints Osteoarthritis type: primary Qualified Code(s): M15.0 - Primary generalized (osteo)arthritis (9) Tobacco abuse counseling SNOMED Code(s): 687547041, 193014828, 839868301 ICD Code: Z71.6 - TOBACCO ABUSE COUNSELING Status: Chronic Priority: Medium Current Visit: Yes Problem Details: Tobacco cessation strongly encouraged with information to be provided at discharge. Patient was counseled on the use of Nicorette gum by me in the emergency room (10) Right bundle branch block (RBBB) SNOMED Code(s): 82470830 ICD Code: I45.10 - UNSPECIFIED RIGHT BUNDLE-BRANCH BLOCK Status: Chronic Priority: Medium Current Visit: Yes Onset Date: 05/28/17 Problem Details: Newly diagnosed. Non-symptomatic. Observe for now (11) PAC (premature atrial contraction) SNOMED Code(s): 146996090 ICD Code: I49.1 - ATRIAL PREMATURE DEPOLARIZATION Status: Acute Priority : Medium Current Visit: Yes Onset Date: 05/28/17 Problem Details: Newly diagnosed. Nonsymptomatic. Observe for now. IV Lopressor given in the emergency room. (12) Renal insufficiency SNOMED Code(s): 511310366 ICD Code: N28.9 - DISORDER OF KIDNEY AND URETER, UNSPECIFIED Status: Acute Priority: Medium Current Visit: Yes Onset Date: 05/29/17 Problem Details: Mild no insufficiency from IV Lasix therapy as above. Continue to observe closely on an outpatient basis with CBC and basic metabolic panel to be conducted prior to stress test as per discharge instructions. Otherwise close follow-up by his regular provider (13) Polycythemia SNOMED Code(s): 870503819 ICD Code: D75.1 - SECONDARY POLYCYTHEMIA Status: Acute Priority: Medium Current Visit: Yes Onset Date: 05/29/17 Problem Details: Nonsymptomatic and observe for now. Repeat blood work as above (14) PVC (premature ventricular contraction) SNOMED Code(s): 54415749 ICD Code: I49.3 - VENTRICULAR PREMATURE DEPOLARIZATION Status: Acute Priority: Medium Current Visit: Yes Onset Date: 05/28/17 Problem Details: Occasional PVCs versus PACs with aberrant conduction, which are nonsymptomatic. Observe for now - Patient Summary/Data Operative Procedure(s) Performed: None Complications: None Consults: None Labs Pending at D/C: None Recommended Follow-up Testing/Procedures: As per discharge instructions Planned Operative Procedure(s) after DC: None Hospital Course: The patient was admitted to observation status with negative workup for acute [place] as above. Note some CHF with initiation of IV Lasix therapy during this hospitalization. Mild secondary renal insufficiency secondary to this therapy, although nonproblematic. No chest pain or significant anginal-type symptoms, arrhythmia, etc. during this hospitalization. Otherwise therapy as above - Patient Instructions Diet: Fluid Restriction Fluid Restriction: 1800 mL, heart healthy, diverticulosis Activity: No Strenuous Activities (50% maximum exercise restriction with additional fall/injury precautions until otherwise directed by your regular provider) Driving: May Drive Today Showering/Bathing: May Shower Notify Provider of: Increased Pain, Nausea and/or Vomiting Other/Special Instructions: 1. CBC and basic metabolic panel are to be conducted prior to your Cardiolite stress test in this facility as below. 2. Cardiolite stress test with me in this facility on 06/07/17 with hospital to call you at a later time with exact time, instructions, etc. 3. Follow-up with your regular provider 1 week after the above stress test for discussion of Cardiolite stress test and scan results with further recommendations to be given at that time - Discharge Plan Prescriptions/Med Rec: Furosemide [Lasix] 20 mg PO DAILY #20 tablet Lisinopril 10 mg PO QPM #20 tablet Potassium Chloride 20 meq PO DAILY #20 tablet.er Home Medications: Home Meds Omeprazole [Prilosec] 40 mg PO DAILY 06/02/15 [History] Simvastatin [Zocor] 20 mg PO WITHDINNER 06/02/15 [History] Furosemide [Lasix] 20 mg PO DAILY #20 tablet 05/29/17 [Rx] Lisinopril 10 mg PO QPM #20 tablet 05/29/17 [Rx] Potassium Chloride 20 meq PO DAILY #20 tablet.er 05/29/17 [Rx] Patient Handouts: Heart Failure, [facility] Forms: ED Department Discharge Referrals: Douglas Zavala MD [Primary Care Provider] - - Discharge Summary/Plan Comment DC Time >30 min.: Yes (Coordination of care) - General Info Date of Service: 05/29/17 Admission Dx/Problem (Free Text: CHF Functional Status: Reports: Pain Controlled, Tolerating Diet, Ambulating, Urinating. Denies: Incentive Spirometry Numeric/FACES Score: 0 - Review of Systems General: Reports: No Symptoms. Denies: Fever, Weakness, Fatigue, Malaise, Chills, Night Sweats, Appetite (Appetite good) HEENT: Reports: Glasses. Denies: Ear Pain, Eye Pain, Headaches, Sinus Congestion, Sore Throat, Rhinitis, Visual Changes Pulmonary: Reports: No Symptoms. Denies: Shortness of Breath, Pleuritic Chest Pain, Cough, Sputum, Wheezing Cardiovascular: Reports: No Symptoms. Denies: Chest Pain, Palpitations, Dyspnea on Exertion, Orthopnea, PND, Edema, Lightheadedness Gastrointestinal: Reports: No Symptoms, Other (No bowel movement yesterday). Denies: Abdominal Pain, Constipation, Decreased Appetite, Diarrhea, Difficulty Swallowing, Flatus, Hematochezia, Melena, Nausea, Vomiting Genitourinary: Reports: No Symptoms. Denies: Dysuria, Frequency, Burning, Pain , Urgency, Incontinence, Hematuria, Retention, Flank Pain Musculoskeletal: Reports: No Symptoms. Denies: Neck Pain, Shoulder Pain, Arm Pain, Back Pain, Leg Pain Skin: Reports: No Symptoms. Denies: Diaphoresis, Bruising, Pruritis Neurological: Reports: No Symptoms. Denies: Confusion, Dizziness, Headache, Numbness, Paresthesia, Tingling, Weakness Psychiatric: Reports: No Symptoms. Denies: Confusion, Depression, Anxiety, Agitation - Patient Data Vitals - Most Recent: Last Vital Signs Temp 36.6 C 05/29/17 08:00 Pulse 76 05/29/17 08:00 Resp 15 05/29/17 08:00 BP 135/82 05/29/17 08:00 Pulse Ox 92 L 05/29/17 08:00 Weight - Most Recent: 101.106 kg I&O - Last 24 hours: Intake & Output 05/28/17 05/29/17 05/29/17 22:59 06:59 14:59 Intake Total 240 Output Total 950 2280 804 Balance -710 -2050 -109 Imaging Impressions - Last 24 hrs: break out man shows normal sinus rhythm with average heart rate in the 70s with very occasional PACs and PVCs and/or PACs with aberrant conduction with no other significant arrhythmia Chest x-ray, portable, on 05/28/17 shows mild aortic valve calcification and prominence of the proximal aortic arch with additional centralized CHF and borderline cardiomegaly. Possible additional COPD and pulmonary hypertension noted with no pulmonary nodules, pneumothorax, pulmonary infiltrates, etc. Preliminary verbal report from the perinatal technician of the echocardiogram conducted today in this facility with mild grade 2 diastolic dysfunction, although excellent ejection fraction of 68% with no other abnormalities noted. Lab Results - Last 24 hrs: Laboratory Results - last 24 hr 05/28/17 05/28/17 05/29/17 Range/Units 17:08 23:30 06:40 WBC 7.5 (4.0-10.2) K/uL RBC 5.58 H (4.33-5.41) M/uL Hgb 17.4 H D (13.1-16.8) g/dL Hct 51.3 H (39.0-49.0) % MCV 91.9 (84.0-98.0) fL MCH 31.2 (28.2-33.3) pg MCHC 33.9 (31.7-36.0) g/dL RDW 13.2 (11.2-14.1) % Plt Count 247 (150-350) K/uL Neut % (Auto) 67.0 (45.0-80.0) % Lymph % (Auto) 21.6 (10.0-50.0) % [place] % (Auto) 9.2 (2.0-14.0) % Eos % (Auto) 1.9 (0.0-5.0) % Baso % (Auto) 0.3 (0.0-2.0) % Neut # (Auto) 5.04 (1.40-7.00) K/uL Lymph # (Auto) 1.62 (0.50-3.50) K/uL [place] # (Auto) 0.69 (0.00-1.00) K/uL Eos # (Auto) 0.14 (0.00-0.50) K/uL Baso # (Auto) 0.02 (0.00-0.20) K/uL Sodium (136-145) mmol/L Potassium (3.5-5.1) mmol/L Chloride (98-107) mmol/L Carbon Dioxide (21.0-32.0) mmol/L BUN (7-18) mg/dL Creatinine (0.51-1.17) mg/dL Est Cr Clr Drug Dosing mL/min Estimated GFR (MDRD) mL/min Glucose (74-106) mg/dL Hemoglobin A1c (4.3-5.7) % Calcium (8.5-10.1) mg/dL Total Bilirubin (0.2-1.0) mg/dL AST (15-37) U/L ALT (12-78) U/L Alkaline Phosphatase (46-116) IU/L Creatine Kinase 100 102 (26-308) U/L Creatine Kinase Index 1.4 1.3 (0.0-2.5) % CK-MB (CK-2) 1.40 1.30 (0.00-3.60) ng/mL Troponin I 0.008 0.005 (0.000-0.056) ng/mL Toh-U-Ukmgpzmouao Pept (0-125) pg/mL Total Protein (6.4-8.2) g/dL Albumin (3.4-5.0) g/dL Triglycerides (30-150) mg/dL Cholesterol (100-200) mg/dL LDL Cholesterol, Calc (0-100) mg/dL HDL Cholesterol (40-60) mg/dL 05/29/17 05/29/17 Range/Units 06:40 06:40 WBC (4.0-10.2) K/uL RBC (4.33-5.41) M/uL Hgb (13.1-16.8) g/dL Hct (39.0-49.0) % MCV (84.0-98.0) fL MCH (28.2-33.3) pg MCHC (31.7-36.0) g/dL RDW (11.2-14.1) % Plt Count (150-350) K/uL Neut % (Auto) (45.0-80.0) % Lymph % (Auto) (10.0-50.0) % [place] % (Auto) (2.0-14.0) % Eos % (Auto) (0.0-5.0) % Baso % (Auto) (0.0-2.0) % Neut # (Auto) (1.40-7.00) K/uL Lymph # (Auto) (0.50-3.50) K/uL [place] # (Auto) (0.00-1.00) K/uL Eos # (Auto) (0.00-0.50) K/uL Baso # (Auto) (0.00-0.20) K/uL Sodium 142 (136-145) mmol/L Potassium 4.1 (3.5-5.1) mmol/L Chloride 101 (98-107) mmol/L Carbon Dioxide 34.3 H (21.0-32.0) mmol/L BUN 21 H (7-18) mg/dL Creatinine 1.24 H (0.51-1.17) mg/dL Est Cr Clr Drug Dosing 59.64 mL/min Estimated GFR (MDRD) 58 mL/min Glucose 121 H (74-106) mg/dL Hemoglobin A1c 6.0 H (4.3-5.7) % Calcium 9.5 (8.5-10.1) mg/dL Total Bilirubin 1.1 H (0.2-1.0) mg/dL AST 18 (15-37) U/L ALT 31 (12-78) U/L Alkaline Phosphatase 84 (46-116) IU/L Creatine Kinase 115 (26-308) U/L Creatine Kinase Index 1.2 (0.0-2.5) % CK-MB (CK-2) 1.40 (0.00-3.60) ng/mL Troponin I 0.000 (0.000-0.056) ng/mL Jil-X-Judeogubinj Pept 311 H (0-125) pg/mL Total Protein 8.2 (6.4-8.2) g/dL Albumin 4.2 (3.4-5.0) g/dL Triglycerides 67 (30-150) mg/dL Cholesterol 141 (100-200) mg/dL LDL Cholesterol, Calc 72 (0-100) mg/dL HDL Cholesterol 56 (40-60) mg/dL Med Orders - Current: Current Medications Acetaminophen (Tylenol) 650 mg PO Q4H PRN PRN Reason: Pain Furosemide (Lasix) 40 mg IVPUSH Q8H [facility] Last Admin: 05/29/17 06:16 Dose: 40 mg Potassium Chloride (Klor-Con M20) 20 meq PO TID [facility] Last Admin: 05/29/17 07:25 Dose: 20 meq Simvastatin (Zocor) 20 mg PO QPM [facility] Last Admin: 05/28/17 17:48 Dose: 20 mg Sodium Chloride (Saline Flush) 10 ml FLUSH ASDIRECTED PRN PRN Reason: Keep Vein Open Last Admin: 05/29/17 06:16 Dose: 10 ml Sodium Chloride (Saline Flush) 10 ml FLUSH Q12HR PRN PRN Reason: Keep Vein Open Temazepam (Restoril) 15 mg PO BEDTIME PRN PRN Reason: Insomnia Discontinued Medications Aspirin (Aspirin) 324 mg CHEW ONETIME ONE Stop: 05/28/17 12:36 Last Admin: 05/28/17 13:08 Dose: 324 mg Famotidine (Pepcid) 40 mg IVPUSH ONETIME ONE Stop: 05/28/17 12:36 Last Admin: 05/28/17 13:15 Dose: 40 mg Metoprolol Tartrate (Lopressor) 2.5 mg IVPUSH ONETIME ONE Stop: 05/28/17 12:36 Last Admin: 05/28/17 13:10 Dose: 2.5 mg Ticagrelor (Brilinta) 180 mg PO ONETIME ONE Stop: 05/28/17 12:36 Last Admin: 05/28/17 13:09 Dose: 180 mg - Exam Quality Assessment: Reports: Supplemental Oxygen, DVT Prophylaxis. Denies: Central Line/PICC, Urine Catheter, Skin Breakdown, Restraints General: Reports: Alert, Oriented, Cooperative, No Acute Distress HEENT: Reports: Pupils Equal, Pupils Reactive, EOMI, Mucous Membr. Moist/[place], Other (Glasses) Neck: Reports: Supple, Trachea Midline, No JVD, No Thyromegaly, Carotid Bruit ( Borderline mild bilateral carotid bruits). Denies: Lymphadenopathy, Thyromegaly Lungs: Reports: Clear to Auscultation, Normal Respiratory Effort. Denies: Rales , Rhonchi, Rub, Wheezing Cardiovascular: Reports: Regular Rate, Regular Rhythm, No Murmurs, Other (No extrasystoles at time of exam). Denies: Murmurs, Gallops, Rubs GI/Abdominal Exam: Normal Bowel Sounds, Soft, Non-Tender, No Organomegaly, No Distention, No Abnormal Bruit, No Mass, Pelvis Stable. No: Guarding (Male) Exam: Deferred Rectal (Males) Exam: Deferred Back Exam: Reports: Normal Inspection, Full Range of Motion. Denies: CVA Tenderness (L), CVA Tenderness (R), Muscle Spasm Extremities: Normal Inspection, Normal Range of Motion, Non-Tender, No Pedal Edema, Normal Capillary Refill. No: Jatin's Sign Skin: Reports: Warm, Dry, Intact. Denies: Ecchymosis Wound/Incisions: Reports: [place] Neurological: Reports: No New Focal Deficit, Other (No clinical orthostasis) Psy/Mental Status: Reports: Alert, Normal Affect, Normal Mood EKG INTERPRETATION EKG Date: 05/29/17 Time: 07:15 Rhythm: NSR Rate (Beats/Min): 72 [place]: Normal (Left cardiac axis) P-Wave: Enlarged (Moderate diffuse biphasic P waves) QRS: RBBB (QRS interval of 0.12 seconds representing an incomplete right bundle branch block with T-wave inversion in lead V1 and possibly leads 3) ST-T: Normal QT: Normal AK/PQ Interval: 0.15 seconds Comparison: No Change (Last EKG on 05/28/17) EKG Interpretation Comments: 1. No acute ischemic changes 2. Complete right bundle branch block *Q Meaningful Use (DIS) - VTE *Q VTE Criteria *Q: - Stroke *Q Stroke Criteria *Q: - AMI *Q AMI Criteria *Q:
[2017-05-29] MEDS ORDERED: Metoprolol Tartrate 5 MG/5 ML SDV IVPUSH ONE (12:21)
[2017-05-29] MEDS: Simvastatin 20 MG Tab PO SCH (17:41)
--- NOTE | 2017-05-29 17:59 | PCM.SN ---
- Free Text/Narrative Note: Note initially planned discharge from this facility as per discharge summary. Prior to discharge, however, the patient started developing some moderate sinus tachycardia, including heart rate in the 130s. Aggressive therapy initiated, including IV Lopressor, etc. No chest pain or anginal complaints. Patient was changed to inpatient/acute care status for further adjustment of his medical therapy. Today's discharge summary will serve as a progress note of today's evaluation for this hospitalization
[2017-05-29] MEDS ORDERED: Metoprolol Succinate 25 MG Tab.ER PO SCH (18:00)
[2017-05-30] MEDS: Furosemide 40 MG/4 ML VIAL IVPUSH SCH ×2 (06:19→18:01)
[2017-05-30] MEDS: Lisinopril 10 MG Tab PO SCH (07:36)
[2017-05-30] MEDS: Potassium Chloride 20 MEQ Tab.ER PO SCH ×2 (07:37→17:58)
[2017-05-30 07:47] LABS: CHLORIDE,CL 99 mmol/L (98-107); SODIUM,NA 138 mmol/L (136-145)
[2017-05-30] MEDS ORDERED: Metoprolol Tartrate 5 MG/5 ML SDV IVPUSH ONE (10:39)
--- NOTE | 2017-05-30 10:39 | PCM.PN ---
- General Info Date of Service: 05/30/17 Admission Dx/Problem (Free Text): CHF Subjective Update: As below Functional Status: Reports: Pain Controlled, Tolerating Diet, Ambulating, Urinating. Denies: New Symptoms Pain Score: 0 - Review of Systems General: Reports: No Symptoms. Denies: Fever, Weakness, Fatigue, Malaise, Chills, Night Sweats, Appetite (Appetite good) HEENT: Reports: No Symptoms. Denies: Ear Pain, Eye Pain, Headaches, Post Nasal Drip, Sinus Congestion, Sore Throat, Rhinitis, Visual Changes Pulmonary: Reports: No Symptoms. Denies: Shortness of Breath, Pleuritic Chest Pain, Cough, Sputum, Wheezing Cardiovascular: Reports: No Symptoms. Denies: Chest Pain, Palpitations ( Despite episodes of tachycardia as below), Dyspnea on Exertion, Orthopnea, PND, Edema, Lightheadedness Gastrointestinal: Reports: No Symptoms, Other (Excellent bowel movement yesterday). Denies: Abdominal Pain, Constipation, Decreased Appetite, Diarrhea , Difficulty Swallowing, Flatus, Hematochezia, Melena, Nausea, Vomiting Genitourinary: Reports: No Symptoms. Denies: Dysuria, Frequency, Burning, Pain , Urgency, Incontinence, Hematuria, Retention, Flank Pain Musculoskeletal: Reports: No Symptoms. Denies: Neck Pain, Shoulder Pain, Arm Pain, Back Pain, Leg Pain Skin: Reports: No Symptoms. Denies: Diaphoresis, Bruising Neurological: Reports: No Symptoms. Denies: Confusion, Dizziness, Headache, Numbness, Paresthesia, Tingling, Weakness Psychiatric: Reports: No Symptoms. Denies: Confusion, Depression, Anxiety - Patient Data Vitals - Most Recent: Last Vital Signs Temp 36.6 C 05/30/17 06:00 Pulse 110 H 05/30/17 06:00 Resp 16 05/30/17 06:00 BP 146/95 H 05/30/17 07:36 Pulse Ox 93 L 05/30/17 06:00 Vital Signs - 24 hr 05/29/17 05/29/17 05/29/17 11:31 13:56 15:56 Temperature [ 36.8 C 36.8 C Oral] Pulse, 90 Peripheral Pulse, 85 80 Peripheral [ Pulse Oximetry] Respiratory 16 16 Rate Blood Pressure 128/58 L Blood Pressure 119/70 126/78 [Right Upper Arm] O2 Sat by Pulse 91 L 92 L Oximetry 05/29/17 05/30/17 05/30/17 17:41 06:00 07:36 Temperature [ 36.6 C Oral] Pulse, 80 Peripheral Pulse, 110 H Peripheral [ Pulse Oximetry] Respiratory 16 Rate Blood Pressure 126/78 146/95 H Blood Pressure 142/82 H [Right Upper Arm] O2 Sat by Pulse 93 L Oximetry Weight - Most Recent: 98.112 kg I&O - Last 24 Hours: Intake & Output 05/29/17 05/30/17 05/30/17 22:59 06:59 14:59 Intake Total 720 360 Balance 720 360 Imaging Impressions - Last 24 Hours: Chest x-ray, PA and lateral, shows evidence of mild COPD changes with probable pulmonary hypertension and mild centralized CHF. No significant cardiomegaly with mild prominence of the proximal aortic arch. No pulmonary infiltrates, pneumothorax, etc. Mild to moderate osteoarthritic and osteoporotic changes in the thoracic spine monitor tech shows heart rate averaging in 60s to 90s with normal sinus rhythm with exception of occasional uniform PVCs. Persistent episodes of occasional brief breakthrough sinus tachycardia with heart rates in the 130s to 140s. Note additional episode of sinus tachycardia with heart rate in the 130s shortly after my physical exam this morning Preliminary verbal report from the orthopedic technician on 05/29/17 of the echocardiogram conducted today in this facility with mild grade 2 diastolic dysfunction, although excellent ejection fraction of 68% with no other abnormalities noted. Lab Results Last 24 Hours: Laboratory Results - last 24 hr 05/30/17 05/30/17 Range/Units 07:00 07:00 WBC 7.7 (4.0-10.2) K/uL RBC 5.82 H (4.33-5.41) M/uL Hgb 18.1 H* (13.1-16.8) g/dL Hct 53.1 H (39.0-49.0) % MCV 91.2 (84.0-98.0) fL MCH 31.1 (28.2-33.3) pg MCHC 34.1 (31.7-36.0) g/dL RDW 13.1 (11.2-14.1) % Plt Count 280 (150-350) K/uL Neut % (Auto) 62.4 (45.0-80.0) % Lymph % (Auto) 27.5 (10.0-50.0) % [place] % (Auto) 8.0 (2.0-14.0) % Eos % (Auto) 2.0 (0.0-5.0) % Baso % (Auto) 0.1 (0.0-2.0) % Neut # (Auto) 4.78 (1.40-7.00) K/uL Lymph # (Auto) 2.11 (0.50-3.50) K/uL [place] # (Auto) 0.61 (0.00-1.00) K/uL Eos # (Auto) 0.15 (0.00-0.50) K/uL Baso # (Auto) 0.01 (0.00-0.20) K/uL Sodium 138 (136-145) mmol/L Potassium 4.0 (3.5-5.1) mmol/L Chloride 99 (98-107) mmol/L Carbon Dioxide 33.7 H (21.0-32.0) mmol/L BUN 29 H (7-18) mg/dL Creatinine 1.20 H (0.51-1.17) mg/dL Est Cr Clr Drug Dosing 61.63 mL/min Estimated GFR (MDRD) > 60 mL/min Glucose 147 H (74-106) mg/dL Calcium 9.6 (8.5-10.1) mg/dL Creatine Kinase 193 (26-308) U/L Creatine Kinase Index 1.5 (0.0-2.5) % CK-MB (CK-2) 2.80 (0.00-3.60) ng/mL Troponin I 0.000 (0.000-0.056) ng/mL Lun-H-Qippvujifnd Pept 324 H (0-125) pg/mL Hung Results Last 24 Hours: Microbiology 05/29/17 13:37 Helicobacter pylori Antigen - Final Stool / Feces - Stool, Formed 05/29/17 13:37 Stool Occult Blood (HUNG) - Final Stool / Feces - Stool, Formed NEGATIVE OCCULT BLOOD Med Orders - Current: Current Medications Acetaminophen (Tylenol) 650 mg PO Q4H PRN PRN Reason: Pain Furosemide (Lasix) 20 mg IVPUSH Q12H ERICA Last Admin: 05/30/17 06:19 Dose: 20 mg Lisinopril (Prinivil) 10 mg PO DAILY ERICA Last Admin: 05/30/17 07:36 Dose: 10 mg Metoprolol Succinate (Toprol Xl) 25 mg PO QPM [facility] Last Admin: 05/29/17 17:41 Dose: 25 mg Potassium Chloride (Klor-Con M20) 20 meq PO BID [facility] Last Admin: 05/30/17 07:37 Dose: 20 meq Simvastatin (Zocor) 20 mg PO QPM [facility] Last Admin: 05/29/17 17:41 Dose: 20 mg Sodium Chloride (Saline Flush) 10 ml FLUSH ASDIRECTED PRN PRN Reason: Keep Vein Open Last Admin: 05/29/17 17:44 Dose: 10 ml Sodium Chloride (Saline Flush) 10 ml FLUSH Q12HR PRN PRN Reason: Keep Vein Open Last Admin: 05/30/17 06:19 Dose: 10 ml Temazepam (Restoril) 15 mg PO BEDTIME PRN PRN Reason: Insomnia Discontinued Medications Aspirin (Aspirin) 324 mg CHEW ONETIME ONE Stop: 05/28/17 12:36 Last Admin: 05/28/17 13:08 Dose: 324 mg Famotidine (Pepcid) 40 mg IVPUSH ONETIME ONE Stop: 05/28/17 12:36 Last Admin: 05/28/17 13:15 Dose: 40 mg Furosemide (Lasix) 40 mg IVPUSH Q8H [facility] Last Admin: 05/29/17 06:16 Dose: 40 mg Metoprolol Tartrate (Lopressor) 2.5 mg IVPUSH ONETIME ONE Stop: 05/28/17 12:36 Last Admin: 05/28/17 13:10 Dose: 2.5 mg Metoprolol Tartrate (Lopressor) 2.5 mg IVPUSH ONETIME ONE Stop: 05/29/17 12:22 Last Admin: 05/29/17 13:56 Dose: 2.5 mg Potassium Chloride (Klor-Con M20) 20 meq PO TID [facility] Last Admin: 05/29/17 11:49 Dose: 20 meq Ticagrelor (Brilinta) 180 mg PO ONETIME ONE Stop: 05/28/17 12:36 Last Admin: 05/28/17 13:09 Dose: 180 mg - Exam Quality Assessment: DVT Prophylaxis. No: Supplemental Oxygen, Urine Catheter, Skin Breakdown, Restraints General: Alert, Oriented, Cooperative, No Acute Distress HEENT: Pupils Equal, Pupils Reactive, EOMI, Mucous Membr. Moist/[place] Neck: Supple, Trachea Midline, No JVD, No Thyromegaly, Carotid Bruit ( Borderline mild bilateral carotid bruits). No: Lymphadenopathy, Thyromegaly Lungs: Clear to Auscultation, Normal Respiratory Effort. No: Rales, Rhonchi, Rub, Wheezing Cardiovascular: Regular Rhythm (No extrasystoles during my exam), No Murmurs, Tachycardia (Borderline tachycardia at time of my exam). No: Gallops, Rubs GI/Abdominal Exam: Normal Bowel Sounds, Soft, Non-Tender, No Organomegaly, No Distention, No Abnormal Bruit, No Mass, Pelvis Stable. No: Guarding (Male) Exam: Deferred Back Exam: Normal Inspection, Full Range of Motion. No: CVA Tenderness (L), CVA Tenderness (R), Muscle Spasm Extremities: Normal Inspection, Normal Range of Motion, Non-Tender, No Pedal Edema, Normal Capillary Refill, Other (Knee-high CARMEN hose in place). No: Jatin' s Sign Peripheral Pulses: 2+: Radial (L), Radial (R), Dorsalis Pedis (L), Dorsalis Pedis (R) Skin: Warm, Dry, Intact. No: Ecchymosis Neurological: No New Focal Deficit, Other (No clinical orthostasis) Psy/Mental Status: Alert, Normal Affect, Normal Mood EKG INTERPRETATION EKG Date: 05/30/17 Time: 07:03 Rhythm: NSR Rate (Beats/Min): 88 [place]: Normal (Left cardiac axis) P-Wave: Enlarged (Moderate diffuse biphasic P waves with pulmonary hypertension by EKG) QRS: RBBB (QRS interval 0.10 seconds representing an incomplete right bundle branch block with T-wave inversion in lead V1 and 3) ST-T: Normal QT: Normal MO/PQ Interval: 0.15 seconds Comparison: No Change (Since last EKG on 05/29/17) EKG Interpretation Comments: 1. No acute ischemic changes 2. Incomplete right bundle branch block 3. Pulmonary hypertension by EKG 4. Probable left atrial enlargement - Problem List & Annotations (1) Acute coronary syndrome SNOMED Code(s): 833045253 Code(s): I24.9 - ACUTE ISCHEMIC HEART DISEASE, UNSPECIFIED Status: Acute Priority: High Current Visit: Yes Onset Date: 05/28/17 Annotation/Comment: : Continued negative workup for acute [place] with serial cardiac enzymes as above. BNP is relatively stable, although mildly increased from yesterday. His chest x- ray does not show any significant CHF, however. Chest pain protocol was initiated upon patient's arrival to the emergency room. Resolution of chest pain at time of discharge both from the emergency room and prior to hospitalization discharge. Cardiology consultation depending on his clinical course with outpatient Cardiolite stress test to be conducted with me in one week with subsequent follow-up with his regular provider, Douglas Zavala M.D. , at the [facility]. Various therapeutic options were discussed with the patient and his , who agreed to further inpatient care secondary to intermittent sinus tachycardia and occasional PVCs with further medication adjustment. Note that an onset brief sinus tachycardia as above with IV Lopressor given shortly after my exam. [facility] physician assumes care in the a.m. 50% Activity restrictions prior to discharge. Work excuse will need to be provided at time of discharge (2) Coronary artery disease SNOMED Code(s): 04370797 Code(s): I25.10 - ATHSCL HEART DISEASE OF [place] CORONARY ARTERY W/O ANG PCTRS Status: Chronic Priority: Medium Current Visit: Yes Qualifiers: Coronary Disease-Associated Artery/Lesion type: [place] artery [place] vs. transplanted heart: [place] heart Associated angina: with unstable angina Qualified Code(s): I25.110 - Atherosclerotic heart disease of [place] coronary artery with unstable angina pectoris Annotation/Comment:: Distant mildly positive heart catheterization as above. However, further repeat cardiac workup as above. (3) CHF (congestive heart failure) SNOMED Code(s): 72262103 Code(s): I50.9 - HEART FAILURE, UNSPECIFIED Status: Acute Priority: High Current Visit: Yes Onset Date: 05/28/17 Qualifiers: Congestive heart failure type: unspecified congestive heart failure type Congestive heart failure chronicity: acute Qualified Code(s): I50.9 - Heart failure, unspecified Annotation/Comment:: Echocardiogram conducted yesterday with preliminary verbal report from the orthopedic technician as above. Further cardiac workup as above. IV Lasix therapy initiated in the emergency room with some mild secondary renal insufficiency. Continue medication adjustments as above. Blood work prior to stress test recommended, including a CBC, BNP, and basic metabolic panel, and I will discuss these results with him at the time of the above Cardiolite stress test. Initiate additional oral Lasix, potassium chloride, and lisinopril at discharge. (4) Peptic reflux disease SNOMED Code(s): 16212686 Code(s): K21.9 - GASTRO-ESOPHAGEAL REFLUX DISEASE WITHOUT ESOPHAGITIS Status: Chronic Priority: Medium Current Visit: Yes Annotation/Comment:: Stable by history, however note some medication noncompliance recently as per emergency room note. Hemoccult of stool was negative with negative stool specimen for H. pylori. during this hospitalization. Resume previous Prilosec (5) COPD (chronic obstructive pulmonary disease) SNOMED Code(s): 03684206 Code(s): J44.9 - CHRONIC OBSTRUCTIVE PULMONARY DISEASE, UNSPECIFIED Status : Chronic Priority: Medium Current Visit: Yes Qualifiers: COPD type: emphysema Emphysema type: panlobular Qualified Code(s): J43.1 - Panlobular emphysema Annotation/Comment:: COPD by today's chest x-ray. Consider PFTs once his cardiac status has been determined. No current fever or bronchitic type symptoms (6) Hyperlipidemia SNOMED Code(s): 02141508 Code(s): E78.5 - HYPERLIPIDEMIA, UNSPECIFIED Status: Acute Priority: Medium Current Visit: Yes Qualifiers: Hyperlipidemia type: unspecified Qualified Code(s): E78.5 - Hyperlipidemia , unspecified Annotation/Comment:: Lipid panel and glycosylated hemoglobin were normal yesterday. (7) Hypertension SNOMED Code(s): 10765066 Code(s): I10 - ESSENTIAL (PRIMARY) HYPERTENSION Status: Chronic Priority : Medium Current Visit: Yes Qualifiers: Hypertension type: essential hypertension Qualified Code(s): I10 - Essential (primary) hypertension Annotation/Comment:: Blood pressure is under good control during this hospitalization. Continue to observe closely by his regular provider (8) Osteoarthritis SNOMED Code(s): 386468001 Code(s): M19.90 - UNSPECIFIED OSTEOARTHRITIS, UNSPECIFIED SITE Status: Chronic Priority: Medium Current Visit: Yes Qualifiers: Osteoarthritis location: multiple joints Osteoarthritis type: primary Qualified Code(s): M15.0 - Primary generalized (osteo)arthritis Annotation/Comment:: Stable by patient history (9) Tobacco abuse counseling SNOMED Code(s): 472560938, 843877014, 964167346 Code(s): Z71.6 - TOBACCO ABUSE COUNSELING Status: Chronic Priority: Medium Current Visit: Yes Annotation/Comment:: Tobacco cessation strongly encouraged with information to be provided at discharge. Patient was counseled on the use of Nicorette gum by me in the emergency room (10) Right bundle branch block (RBBB) SNOMED Code(s): 81751515 Code(s): I45.10 - UNSPECIFIED RIGHT BUNDLE-BRANCH BLOCK Status: Chronic Priority: Medium Current Visit: Yes Onset Date: 05/28/17 Annotation/ Comment:: Newly diagnosed. Non-symptomatic. Observe for now (11) PAC (premature atrial contraction) SNOMED Code(s): 626387482 Code(s): I49.1 - ATRIAL PREMATURE DEPOLARIZATION Status: Acute Priority: Medium Current Visit: Yes Onset Date: 05/28/17 Annotation/Comment:: Newly diagnosed. Nonsymptomatic. Observe for now. IV Lopressor given in the emergency room with additional initiation of during this hospitalization the however persistent breakthrough sinus tachycardia as above (12) Renal insufficiency SNOMED Code(s): 739182029 Code(s): N28.9 - DISORDER OF KIDNEY AND URETER, UNSPECIFIED Status: Acute Priority: Medium Current Visit: Yes Onset Date: 05/29/17 Annotation/ Comment:: Mild renal insufficiency from IV Lasix therapy as above although stable today. Continue to observe closely on an outpatient basis with repeat blood work as above (13) Polycythemia SNOMED Code(s): 327171185 Code(s): D75.1 - SECONDARY POLYCYTHEMIA Status: Acute Priority: Medium Current Visit: Yes Onset Date: 05/29/17 Annotation/Comment:: Nonsymptomatic and observe for now. Repeat blood work as above (14) PVC (premature ventricular contraction) SNOMED Code(s): 97281465 Code(s): I49.3 - VENTRICULAR PREMATURE DEPOLARIZATION Status: Acute Priority: Medium Current Visit: Yes Onset Date: 05/28/17 Annotation/ Comment:: Occasional PVCs versus PACs with aberrant conduction, which are nonsymptomatic. Observe for now (15) Sinus tachycardia SNOMED Code(s): 21967488 Code(s): R00.0 - TACHYCARDIA, UNSPECIFIED Status: Acute Priority: High Current Visit: Yes Onset Date: 05/29/17 Annotation/Comment:: As above (16) Diastolic dysfunction SNOMED Code(s): 8575759 Code(s): I51.9 - HEART DISEASE, UNSPECIFIED Status: Chronic Priority: High Current Visit: Yes Annotation/Comment:: Relatively stable grade 2 diastolic dysfunction as above. Continue medication adjustments as above. Patient is not a candidate for digoxin secondary to this problem - Problem List Review Problem List Initiated/Reviewed/Updated: Yes - My Orders Last 24 Hours: My Active Orders 05/30/17 05:11 EKG Documentation Completion [RC] ASDIRECTED Chest 2V [CR] Routine - Assessment Assessment:: As above - Plan Plan:: As above. Extensive precautions were given to the patient and his , who are in agreement with the treatment plan. systems security consultant physician assumes care in the a.m.. Further inpatient/acute care on telemetry for an additional 1-2 days is required for further medication adjustment, etc. as above.
[2017-05-30] MEDS: Sodium Chloride 0.9% 10 ML Syringe FLUSH PRN ×2 (10:55→18:02)
[2017-05-30] MEDS ORDERED: Metoprolol Succinate 50 MG Tab.ER PO ONE (11:09)
[2017-05-30] MEDS: Metoprolol Succinate 50 MG Tab.ER PO SCH (17:59)
[2017-05-30] MEDS ORDERED: Metoprolol Succinate 25 MG Tab.ER PO SCH (18:00)
[2017-05-30] MEDS: Simvastatin 20 MG Tab PO SCH (18:00)
[2017-05-31] MEDS: Furosemide 40 MG/4 ML VIAL IVPUSH SCH (06:08)
[2017-05-31] MEDS: Sodium Chloride 0.9% 10 ML Syringe FLUSH PRN (06:11)
[2017-05-31] MEDS: Potassium Chloride 20 MEQ Tab.ER PO SCH (07:43)
[2017-05-31] MEDS: Lisinopril 10 MG Tab PO SCH (07:43)
[2017-05-31] MEDS: Metoprolol Succinate 50 MG Tab.ER PO SCH (07:45)
[2017-05-31 07:46] LABS: CHLORIDE,CL 102 mmol/L (98-107); SODIUM,NA 138 mmol/L (136-145)
[2017-05-31 11:06] VITALS: BP 105/71
--- NOTE | 2017-06-01 11:56 | PCM.PN ---
- General Info Date of Service: 05/31/17 - Review of Systems General: Reports: No Symptoms HEENT: Reports: No Symptoms Pulmonary: Reports: No Symptoms Cardiovascular: Reports: No Symptoms Gastrointestinal: Reports: No Symptoms Genitourinary: Reports: No Symptoms Musculoskeletal: Reports: No Symptoms Skin: Reports: No Symptoms Neurological: Reports: No Symptoms Psychiatric: Reports: No Symptoms - Patient Data Vitals - Most Recent: Last Vital Signs Temp 98.3 F 05/31/17 11:05 Pulse 82 05/31/17 11:05 Resp 17 05/31/17 11:05 BP 105/71 05/31/17 11:05 Pulse Ox 94 L 05/31/17 11:05 Weight - Most Recent: 217 lb 2.485 oz Med Orders - Current: Current Medications Discontinued Medications Acetaminophen (Tylenol) 650 mg PO Q4H PRN PRN Reason: Pain Aspirin (Aspirin) 324 mg CHEW ONETIME ONE Stop: 05/28/17 12:36 Last Admin: 05/28/17 13:08 Dose: 324 mg Famotidine (Pepcid) 40 mg IVPUSH ONETIME ONE Stop: 05/28/17 12:36 Last Admin: 05/28/17 13:15 Dose: 40 mg Furosemide (Lasix) 40 mg IVPUSH Q8H [facility] Last Admin: 05/29/17 06:16 Dose: 40 mg Furosemide (Lasix) 20 mg IVPUSH Q12H [facility] Last Admin: 05/31/17 06:08 Dose: 20 mg Lisinopril (Prinivil) 10 mg PO DAILY [facility] Last Admin: 05/31/17 07:43 Dose: 10 mg Metoprolol Succinate (Toprol Xl) 25 mg PO QPM [facility] Last Admin: 05/29/17 17:41 Dose: 25 mg Metoprolol Succinate (Toprol Xl) 50 mg PO ONETIME ONE Stop: 05/30/17 11:10 Last Admin: 05/30/17 11:42 Dose: 50 mg Metoprolol Succinate (Toprol Xl) 5 mg PO BID [facility] Metoprolol Succinate (Toprol Xl) 50 mg PO BID [facility] Last Admin: 05/31/17 07:45 Dose: 50 mg Metoprolol Tartrate (Lopressor) 2.5 mg IVPUSH ONETIME ONE Stop: 05/28/17 12:36 Last Admin: 05/28/17 13:10 Dose: 2.5 mg Metoprolol Tartrate (Lopressor) 2.5 mg IVPUSH ONETIME ONE Stop: 05/29/17 12:22 Last Admin: 05/29/17 13:56 Dose: 2.5 mg Metoprolol Tartrate (Lopressor) 2.5 mg IVPUSH ONETIME ONE Stop: 05/30/17 10:40 Last Admin: 05/30/17 10:56 Dose: 2.5 mg Potassium Chloride (Klor-Con M20) 20 meq PO TID [facility] Last Admin: 05/29/17 11:49 Dose: 20 meq Potassium Chloride (Klor-Con M20) 20 meq PO BID [facility] Last Admin: 05/31/17 07:43 Dose: 20 meq Simvastatin (Zocor) 20 mg PO QPM [facility] Last Admin: 05/30/17 18:00 Dose: 20 mg Sodium Chloride (Saline Flush) 10 ml FLUSH ASDIRECTED PRN PRN Reason: Keep Vein Open Last Admin: 05/31/17 06:11 Dose: 10 ml Sodium Chloride (Saline Flush) 10 ml FLUSH Q12HR PRN PRN Reason: Keep Vein Open Last Admin: 05/30/17 06:19 Dose: 10 ml Temazepam (Restoril) 15 mg PO BEDTIME PRN PRN Reason: Insomnia Ticagrelor (Brilinta) 180 mg PO ONETIME ONE Stop: 05/28/17 12:36 Last Admin: 05/28/17 13:09 Dose: 180 mg - Exam General: Alert, Oriented HEENT: Pupils Equal, Pupils Reactive, EOMI, Mucous Membr. Moist/[place] Neck: Supple Lungs: Clear to Auscultation, Normal Respiratory Effort Cardiovascular: Regular Rate, Regular Rhythm GI/Abdominal Exam: Normal Bowel Sounds, Soft, Non-Tender, No Organomegaly, No Distention, No Abnormal Bruit, No Mass, Pelvis Stable Back Exam: Normal Inspection, Full Range of Motion Extremities: Normal Inspection, Normal Range of Motion, Non-Tender, No Pedal Edema, Normal Capillary Refill Skin: Warm, Dry, Intact Neurological: No New Focal Deficit Psy/Mental Status: Alert, Normal Affect, Normal Mood - Problem List & Annotations (1) CHF (congestive heart failure) SNOMED Code(s): 19348633 Code(s): I50.9 - HEART FAILURE, UNSPECIFIED Status: Acute Priority: High Onset Date: 05/28/17 Qualifiers: Congestive heart failure type: unspecified congestive heart failure type Congestive heart failure chronicity: acute Qualified Code(s): I50.9 - Heart failure, unspecified Annotation/Comment:: Cardiolyte stress test scheduled (2) Hyperlipidemia SNOMED Code(s): 36089338 Code(s): E78.5 - HYPERLIPIDEMIA, UNSPECIFIED Status: Acute Priority: Medium Qualifiers: Hyperlipidemia type: unspecified Qualified Code(s): E78.5 - Hyperlipidemia , unspecified Annotation/Comment:: Stable (3) COPD (chronic obstructive pulmonary disease) SNOMED Code(s): 99428217 Code(s): J44.9 - CHRONIC OBSTRUCTIVE PULMONARY DISEASE, UNSPECIFIED Status : Chronic Priority: Medium Qualifiers: COPD type: emphysema Emphysema type: panlobular Qualified Code(s): J43.1 - Panlobular emphysema Annotation/Comment:: No current fever or bronchitic type symptoms (4) Coronary artery disease SNOMED Code(s): 97343281 Code(s): I25.10 - ATHSCL HEART DISEASE OF [place] CORONARY ARTERY W/O ANG PCTRS Status: Chronic Priority: Medium Qualifiers: Coronary Disease-Associated Artery/Lesion type: [place] artery [place] vs. transplanted heart: [place] heart Associated angina: with unstable angina Qualified Code(s): I25.110 - Atherosclerotic heart disease of [place] coronary artery with unstable angina pectoris - Problem List Review Problem List Initiated/Reviewed/Updated: Yes - Assessment Assessment:: As above - Plan Plan:: Addendum add to Dr. Jossue Argueta's DC summary. Patient will be sent home today with a follow up cardiolyte stress test scheduled for next week.
== END 2017-05-31 14:40 | disposition home or self-care (01) | DRG 292 ==
LOC: LL.ED 12:32 → LL.MS 15:50 → OBSVTOIN 05-29 12:27
PROVIDERS: ADMIT Family Medicine; ATTEND Family Medicine
PROC: B24BZZZ Ultrasonography of Heart with Aorta (ICD-10-PCS; principal; 2017-05-29)
DX: I11.0 Hypertensive heart disease with heart failure (principal); I24.9 Acute ischemic heart disease, unspecified; I50.32 Chronic diastolic (congestive) heart failure; I25.110 Atherosclerotic heart disease of native coronary artery with unstable angina pectoris; K21.9 Gastro-esophageal reflux disease without esophagitis; I50.9 Heart failure, unspecified; J43.1 Panlobular emphysema; E78.5 Hyperlipidemia, unspecified; M15.0 Primary generalized (osteo)arthritis; I45.10 Unspecified right bundle-branch block; I49.1 Atrial premature depolarization; N28.9 Disorder of kidney and ureter, unspecified; D75.1 Secondary polycythemia; I49.3 Ventricular premature depolarization; R00.0 Tachycardia, unspecified; T47.1X6A Underdosing of other antacids and anti-gastric-secretion drugs, initial encounter; F17.220 Nicotine dependence, chewing tobacco, uncomplicated; Z91.120 Patient's intentional underdosing of medication regimen due to financial hardship; Z86.718 Personal history of other venous thrombosis and embolism; Z98.61 Coronary angioplasty status; Z79.899 Other long term (current) drug therapy
CPT/HCPCS: 36415 ×2; 71010; 80053 ×2; 80061; 82550 ×3; 82553 ×3; 83036; 83605; 83735; 83880 ×2; 84443; 84484 ×3; 84550; 85025 ×2; 85379; 85610; 85730; 93005 ×2; 93306; 96374; 96375; 96376 ×2; 99285; A9270 ×6; G0378; J1940 ×3; J7050 ×5; 71020; 80048; 82272; 87338; 99220; 99233; J3490; S0028

== ENCOUNTER 2017-07-01 07:35 | Emergency (ER) | payer MEDICARE, OTHER ==
[2017-07-01 07:38] VITALS: BP 139/77
--- NOTE | 2017-07-01 08:16 | EDM.PDOC ---
ED HPI GENERAL MEDICAL PROBLEM - General Chief Complaint: General Stated Complaint: R Wrist Pain Time Seen by Provider: 07/01/17 08:00 Source of Information: Reports: Patient History Limitations: Reports: No Limitations - History of Present Illness INITIAL COMMENTS - FREE TEXT/NARRATIVE: Patient is a 71-year-old who presented to the ER with left wrist pain states that last night he has some pain and he massaged his risks and heard a pop and then developed more pain denies any trauma to risks at this time and is no swelling Onset: Sudden Duration: Hour(s):, Constant Location: Reports: Upper Extremity, Left Severity: Moderate Improves with: Reports: Immobilization Worsens with: Reports: Movement Context: Reports: Lifting Associated Symptoms: Reports: No Other Symptoms Left Wrist Pain Score (Numeric/FACES): 10 - Related Data Allergies Allergy/AdvReac Type Severity Reaction Status Date / Time hydromorphone [From Dilaudid] AdvReac Other Verified 07/01/17 07:49 Home Meds: Home Meds Omeprazole [Prilosec] 40 mg PO DAILY 06/02/15 [History] Simvastatin [Zocor] 20 mg PO WITHDINNER 06/02/15 [History] Lisinopril 10 mg PO QPM #20 tablet 05/29/17 [Rx] Metoprolol Succinate [Toprol XL] 50 mg PO BID #60 tab.er 05/31/17 [Rx] Furosemide [Lasix] 20 mg PO DAILY PRN 07/01/17 [History] Potassium Chloride 20 meq PO DAILY PRN 07/01/17 [History] Past Medical History HEENT History: Reports: Allergic Rhinitis, Impaired Vision Other HEENT History: Grain dust allergic rhinitis, patient wears glasses Cardiovascular History: Reports: Blood Clots/VTE/DVT, CAD, High Cholesterol, Hypertension, Other (See Below) Other Cardiovascular History: 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 with brief Coumadin therapy, mild posterior coronary artery disease by heart catheterization as below Gastrointestinal History: Reports: Diverticulosis, Gastritis, GERD, Other (See Below) Other Gastrointestinal History: 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, sigmoid diverticulosis without history of diverticulitis Genitourinary History: Reports: BPH, Renal Calculus, Other (See Below) Other Genitourinary History: Right-sided urolithiasis 2 in 2001 and 2002 with lithotripsy required as below Musculoskeletal History: Reports: Arthritis, Back Pain, Chronic, Neck Pain, Chronic, Osteoarthritis Neurological History: Reports: None Psychiatric History: Reports: None Endocrine/Metabolic History: Reports: None Hematologic History: Reports: None Immunologic History: Reports: None Oncologic (Cancer) History: Reports: None Dermatologic History: Reports: None - Infectious Disease History Infectious Disease History: Reports: Chicken Pox, Measles - Past Surgical History Head Surgeries/Procedures: Reports: None HEENT Surgical History: Reports: Oral Surgery, Tonsillectomy, Other (See Below) Other HEENT Surgeries/Procedures: Tonsillectomy at age 12, multiple teeth extractions with partial upper dentures currently Respiratory Surgical History: Reports: None GI Surgical History: Reports: Colonoscopy, EGD, Polypectomy, Other (See Below) Other GI Surgeries/Procedures: EGD on 06/03/15, 03/05/15, and 05/08/13 with previous history of excision of multiple benign colonic polyps, last colonoscopy on 05/09/12 Male Surgical History: Reports: Circumcision, Renal Calculus, Ureteral Stent , Other (See Below) Other Male Surgeries/Procedures: History of right-sided lithotripsy and subsequent ureteral stent placement in 2001 and 2002, circumcision as an infant Endocrine Surgical History: Reports: None Neurological Surgical History: Reports: None Musculoskeletal Surgical History: Reports: None Oncologic Surgical History: Reports: None Dermatological Surgical History: Reports: None - Past Imaging History Past Imaging History: Reports: Angiography (Mildly positive heart catheterization in 2008 as above), Stress Testing (Normal exercise cardiac stress test and 2008) Social & Family History - Family History HEENT: Reports: Macular Degeneration, Other (See Below) Other HEENT Family History: Brother with macular degeneration Cardiac: Reports: CAD, AL, Other (See Below) Other Cardiac Family History: Brothers 2 with history of MIs with 1 brother having a triple CABG in his 50s, Respiratory: Reports: COPD, Other (See Below) Other Respiratory Family Hisory: Brother with history of COPD with no history of tobacco use GI: Reports: None : Reports: None OBGYN: Reports: None Musculoskeletal: Reports: Arthritis, Osteoarthritis, Other (See Below) Other Musculoskeletal Family History: Osteoarthritis in mother Neurological: Reports: CVA, Other (See Below) Other Neurological Family History: Brother with CVA in his 80s Psychiatric: Reports: None Endocrine/Metabolic: Reports: None Hematologic: Reports: None Immunologic: Reports: None Dermatologic: Reports: None Oncologic: Reports: Other (See Below) Other Oncologic Family History: Multiple maternal uncles and aunts from unknown type of cancers in their 70s and 80s, mother with unknown type of fatal metastatic abdominal cancer in her 70s - Tobacco Use Smoking Status *Q: Current Every Day Smoker Years of Tobacco use: 50 Packs/Tins Daily: 0.1 Used Tobacco, but Quit: Yes Month Tobacco Last Used: 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 Second Hand Smoke Exposure: No - Caffeine Use Caffeine Use: Reports: Soda - Alcohol Use Days Per Week of Alcohol Use: 0 Number of Drinks Per Day: 2 Total Drinks Per Week: 0 - Recreational Drug Use Recreational Drug Use: No Drug Use in Last 12 Months: No - Living Situation & Occupation Living situation: Reports: (2000, no children), with Family (With ) 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) ED ROS GENERAL - Review of Systems Review Of Systems: See Below Constitutional: Reports: No Symptoms HEENT: Reports: No Symptoms Respiratory: Reports: No Symptoms Cardiovascular: Reports: No Symptoms Endocrine: Reports: No Symptoms GI/Abdominal: Reports: No Symptoms : Reports: No Symptoms Musculoskeletal: Reports: Hand Pain Skin: Reports: No Symptoms Neurological: Reports: No Symptoms Psychiatric: Reports: No Symptoms ED EXAM, GENERAL - Physical Exam Exam: See Below Exam Limited By: No Limitations General Appearance: Alert, WD/WN, No Apparent Distress Ears: Normal External Exam, Normal Canal, Hearing Grossly Normal, Normal TMs Nose: Normal Inspection, Normal Mucosa, No Blood Throat/Mouth: Normal Inspection, Normal Lips, Normal Teeth, Normal Gums, Normal Oropharynx, Normal Voice, No Airway Compromise Head: Atraumatic, Normocephalic Neck: Normal Inspection, Supple, Non-Tender, Full Range of Motion Respiratory/Chest: No Respiratory Distress, Lungs Clear, Normal Breath Sounds, No Accessory Muscle Use, Chest Non-Tender Cardiovascular: Normal Peripheral Pulses, Regular Rate, Rhythm, No Edema, No Gallop, No JVD, No Murmur, No Rub GI/Abdominal: Normal Bowel Sounds, Soft, Non-Tender, No Organomegaly, No Distention, No Abnormal Bruit, No Mass Back Exam: Normal Inspection, Full Range of Motion, NT Extremities: Joint Swelling, Limited Range of Motion Neurological: Alert, Oriented, CN II-XII Intact, Normal Cognition, Normal Gait, Normal Reflexes, No Motor/Sensory Deficits Skin Exam: Warm, Dry, Intact, Normal Color, No Rash Course - Vital Signs Last Recorded V/S: Last Vital Signs Temp 98.3 F 07/01/17 07:36 Pulse 65 07/01/17 07:36 Resp 16 07/01/17 07:36 BP 139/77 07/01/17 07:36 Pulse Ox 97 07/01/17 07:36 - Orders/Labs/Meds Orders: Active Orders 24 hr Category Date Time Status Wrist Comp Min 3V Lt [CR] Stat Exams 07/01/17 07:41 Ordered Departure - Departure Time of Disposition: 08:18 Disposition: Home, Self-Care 01 Condition: Good Clinical Impression: Wrist pain, left - Discharge Information Referrals: Douglas Zavala MD [Primary Care Provider] - Care Plan Goals: Patient will be sent home with a wrist splint he is to take Motrin or Tylenol at home for discomfort - My Orders Last 24 Hours: My Active Orders 07/01/17 07:41 Wrist Comp Min 3V Lt [CR] Stat - Assessment/Plan Last 24 Hours: My Active Orders 07/01/17 07:41 Wrist Comp Min 3V Lt [CR] Stat
== END 2017-07-01 08:25 | disposition home or self-care (01) ==
LOC: LL.ED 07:35
DX: M25.532 Pain in left wrist (principal); F17.210 Nicotine dependence, cigarettes, uncomplicated; I25.10 Atherosclerotic heart disease of native coronary artery without angina pectoris; E78.00 Pure hypercholesterolemia, unspecified; I10 Essential (primary) hypertension; K21.9 Gastro-esophageal reflux disease without esophagitis; M19.90 Unspecified osteoarthritis, unspecified site; Z90.89 Acquired absence of other organs; Z88.8 Allergy status to other drugs, medicaments and biological substances; Z79.899 Other long term (current) drug therapy
CPT/HCPCS: 73110-LT; 99283

== ENCOUNTER 2019-03-05 15:35 | Observation (INO) | payer MEDICARE, OTHER ==
--- NOTE | 2019-03-05 15:42 | EDM.PDOC ---
ED HPI GENERAL MEDICAL PROBLEM - General Chief Complaint: Chest Pain Stated Complaint: chest pain Time Seen by Provider: 03/05/19 15:41 Source of Information: Reports: Patient, Family ([facility]), Old Records ( [facility] chart/EMR), Other ([facility] EMR) History Limitations: Reports: No Limitations - History of Present Illness INITIAL COMMENTS - FREE TEXT/NARRATIVE: Patient drove himself to the emergency room via private automobile for evaluation of some 9/10 retrosternal chest pressure with radiation to the chest regions and lower ribs bilaterally since about noon yesterday. Symptoms completely resolved without treatment after about 6 hours, however did return at noon today. He denies eating either yesterday or today prior to onset of the above symptoms. The patient has had some nonspecific fatigue and possible decreased endurance during the last week with no known exposure to infection, etc. He has not taken any medications for his symptoms to this point. Note that the patient did see his chiropractor shortly prior to arrival to this facility with bilateral rib manipulation in that facility. No recent history of fall, injury, etc.. The patient denies heart flutter, dizziness, orthostasis, orthopnea, diaphoresis, paresthesias, or any other anginal-type symptoms. No recent history of abdominal pain, heartburn, nausea, diarrhea, melena, gross hematochezia, or any food intolerance, including fatty foods, etc. with normal bowel movement earlier this morning. He denies any gross hematuria, colic, or other UTI symptoms. The patient also denies any recent fever, cough, wheezing, dyspnea, etc.. Onset: Gradual Onset Date: 03/04/19 Onset Time: 12:00 Duration: Getting Worse, Intermittent Location: Reports: Chest. Denies: Head, Face, Neck, Abdomen, Back, Pelvis, Upper Extremity, Left, Upper Extremity, Right, Lower Extremity, Left, Radiates to Quality: Reports: Pressure, Same as Previous Episode Severity: Severe Improves with: Reports: None Worsens with: Reports: None Context: Reports: Other (As above). Denies: Sick Contact, Trauma Associated Symptoms: Reports: Chest Pain. Denies: Confusion, Cough, Diaphoresis , Fever/Chills, Headaches, Loss of Appetite, Malaise, Nausea/Vomiting, Rash, Seizure, Shortness of Breath, Syncope, Weakness Treatments ENLISTED ADVISOR: Reports: Other (see below) (As above) Anterior Chest Pain Score (Numeric/FACES): 9 - Related Data Allergies Allergy/AdvReac Type Severity Reaction Status Date / Time hydromorphone [From Dilaudid] AdvReac Other Verified 03/05/19 16:00 Home Meds: Home Meds Omeprazole [Prilosec] 40 mg PO DAILY 06/02/15 [History] Metoprolol Succinate [Toprol XL] 50 mg PO BID #60 tab.er 05/31/17 [Rx] Aspirin [Halfprin] 81 mg PO DAILY 08/13/18 [History] Clopidogrel Bisulfate [Clopidogrel] 75 mg PO DAILY 08/13/18 [History] Nitroglycerin [Nitrostat] 0.4 mg SL ASDIRECTED PRN 08/13/18 [History] atorvaSTATin Calcium [Atorvastatin Calcium] 40 mg PO DAILY 08/13/18 [History] Lisinopril 10 mg PO QAM 03/05/19 [History] Past Medical History HEENT History: Reports: Allergic Rhinitis, Hard of Hearing, Impaired Vision. Denies: Cataract, Glaucoma, Macular Degeneration, Otitis Media, Retinal Detachment Other HEENT History: Grain dust allergic rhinitis, patient wears glasses. Presbycusis with no current hearing aide therapy. Cardiovascular History: Reports: Arrhythmia, Blood Clots/VTE/DVT, CAD, Heart Failure, High Cholesterol, Hypertension, PTCA, PVD, Stents, Other (See Below). Denies: Afib, Aneurysm, Bypass, Heart Murmur, OH, Syncope Other Cardiovascular History: Significant 99% stenosis of the right coronary artery with status post PTCA/stent as below and persistent 50% LAD stenosis by heart catheterization on 07/11/17. 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 Complete right bundle branch block, PACs, and PVCs. Respiratory History: Reports: None, Intubation, Previous. Denies: Asthma, Bronchitis, Recurrent, COPD, Intubation, Difficult, PE, Pneumonia, Recurrent, Pneumothorax, Sleep Apnea, TB Gastrointestinal History: Reports: Diverticulosis, Gastritis, GERD, Other (See Below). 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 Negative pylori gastric biopsies 2018 as below. Sigmoid diverticulosis without history of diverticulitis. Genitourinary History: Reports: BPH, Chronic Renal Insuffiency, Renal Calculus, Other (See Below). Denies: Acute Renal Failure, Retention, Urinary, STD, Urinary Incontinence, UTI, Recurrent Other Genitourinary History: Right-sided urolithiasis 2 in 2001 and 2002 with lithotripsy required as below Musculoskeletal History: Reports: Arthritis, Back Pain, Chronic, Fracture, Neck Pain, Chronic, Osteoarthritis, Other (See Below). Denies: Amputation, Gout, RA , SLE Other Musculoskeletal History: Closed reduction of finger fracture on 03/10/15. [place] neck deformity of the left hand in digit #3 with no surgery. Neurological History: Reports: None. Denies: Cerebral Aneurysms, CVA, Headaches , Chronic, Head Trauma, Migraines, MS, Neuropathy, Diabetic, Neuropathy, Peripheral, Parkinson's, Seizure, Vertigo Psychiatric History: Reports: None. Denies: Abuse, Victim of, ADD, ADHD, Addiction, Anxiety, Depression, Psych Hospitalization(s), PTSD, Suicide Attempt , Suicidal Ideation Endocrine/Metabolic History: Reports: Diabetes, Type II, Other (See Below). Denies: Obesity/BMI 30+ Other Endocrine/Metabolic History: Mild hyperglycemia Hematologic History: Reports: Other (See Below). Denies: Anemia, Blood Transfusion(s), Folic Acid, Iron Deficiency Other Hematologic History: Polycythemia Immunologic History: Reports: None. Denies: AIDS, HIV, SLE Oncologic (Cancer) History: Reports: None. Denies: Basal Cell Carcinoma, Colon , Hodgkin's Lymphoma, Leukemia, Lymphoma, Malignant Melanoma, Non-Hodgkin's Lymphoma, Prostate, Squamous Cell Carcinoma Dermatologic History: Reports: None. Denies: Eczema, Psoriasis, Venous Stasis Dermatitis - Infectious Disease History Infectious Disease History: Reports: Chicken Pox, Measles. Denies: C-Difficile , Helicobacter Pylori, Meningitis, Mononucleosis, MRSA, Mumps, Pertussis ( Whooping Cough), Rubella, Scarlet Fever, TB, VRE - Past Surgical History Head Surgeries/Procedures: Reports: None HEENT Surgical History: Reports: None, Adenoidectomy, Oral Surgery, Tonsillectomy, Other (See Below). Denies: Cataract Surgery, Eye Surgery, Laser Surgery, LASIK, Myringotomy w Tube(s), Naso-Sinus Surgery Other HEENT Surgeries/Procedures: Tonsillectomy at age 12, multiple teeth extractions with partial upper dentures currently Cardiovascular Surgical History: Reports: None, Coronary Artery Stent, Percutaneous Transluminal Angioplasty, Vascular Surgery. Denies: Carotid Endarterectomy, Carotid Stents, Coronary Artery Bypass, Varicose Respiratory Surgical History: Reports: None. Denies: Thoracentesis GI Surgical History: Reports: Colonoscopy, EGD, Polypectomy, Other (See Below). Denies: Appendectomy, Cholecystectomy, Colon, Hernia, Abdominal, Hernia, Inguinal, Hernia Repair/Other Other GI Surgeries/Procedures: EGD on 08/13/18, 06/03/15, 03/05/15, and 05/08/13 with previous history of excision of multiple benign colonic polyps. Last colonoscopy on 06/03/15 with previous evaluations on 05/09/12 and 03/05/12. Male Surgical History: Reports: Circumcision, Renal Calculus, Ureteral Stent , Other (See Below) Other Male Surgeries/Procedures: History of right-sided lithotripsy and subsequent ureteral stent placement in 2001 and 2002, circumcision as an infant Endocrine Surgical History: Reports: None Neurological Surgical History: Reports: None. Denies: C-Spine, Discectomy, Laminectomy, Lumbar Spine, Sacral Spine, Spinal Fusion, Thoracic Spine, Vertebroplasty Musculoskeletal Surgical History: Reports: None. Denies: Arthroscopic Knee, Arthroscopic Procedure, Carpal Tunnel, Ganglion Cyst, Joint Replacement, Shoulder Surgery Oncologic Surgical History: Reports: None Dermatological Surgical History: Reports: None - Past Imaging History Past Imaging History: Reports: Angiography (Heart catheterizations on 07/11/17, , and 02/21/12.), Cardiac Echo (06/10/17 with ejection fraction of 5060 percent and findings as above.), Carotid US (07/24/18 with findings as above), CAT Scan (CT of the abdomen and pelvis on 03/26/12.), Stress Testing (Low level cardiac stress test on 07/27/17 with previous Cardiolite stress test on 06/07/17 and Normal exercise cardiac stress test in 2007), Upper GI X-Ray/Series (05/08/13 ) Social & Family History - Family History HEENT: Reports: Macular Degeneration, Other (See Below). Denies: Allergic Rhinitis, Glaucoma, Retinal Detachment Other HEENT Family History: Brother with macular degeneration Cardiac: Reports: Bypass, CAD, [place], Other (See Below). Denies: Afib, AICD, Aneurysm, Arrhythmia, Blood Clots/VTE/DVT, Heart Failure, Heart Murmur, High Cholesterol, Hypertension, PVD/COD, Stent, Syncope Other Cardiac Family History: Brothers 2 with history of MIs with 1 brother having a triple CABG in his 50s, Respiratory: Reports: COPD, Other (See Below). Denies: Asthma, PE, Pneumothorax , Sleep Apnea Other Respiratory Family Hisory: Brother with history of COPD with no history of tobacco use GI: Reports: None. Denies: Celiac Disease, Cholelithiasis, Colon Polyps, GERD, GI bleed, Hepatitis, Inflammatory Bowel Disease, Irritable Bowel Syndrome, Pancreatitis, PUD : Reports: None OBGYN: Reports: None. Denies: Endometriosis, Recurrent Spontaneous Musculoskeletal: Reports: Arthritis, Osteoarthritis, Other (See Below). Denies : Fibromyalgia, Gout, RA, SLE Other Musculoskeletal Family History: Osteoarthritis in mother Neurological: Reports: CVA, Other (See Below). Denies: Alzheimers Disease, Cerebral Aneurysms, Dementia, Migraines, MS, Neuropathy, Peripheral, Parkinson's , Seizure, TIA, Vertigo Other Neurological Family History: Brother with CVA in his 80s Psychiatric: Reports: None. Denies: Abuse, Victim of, ADD, ADHD, Anxiety, Bipolar, Depression, Psych Hospitalization(s), PTSD, Suicide Attempt Endocrine/Metabolic: Reports: None. Denies: Diabetes, Type I, Diabetes, type II , Diabetes Mellitus, Type 3c, Hypothyroidism, IDDM Hematologic: Reports: None. Denies: Anemia Immunologic: Reports: None. Denies: AIDS, HIV, SLE Dermatologic: Reports: None. Denies: Eczema, Psoriasis Oncologic: Reports: Metastatic, Other (See Below) Other Oncologic Family History: Multiple maternal uncles and aunts from unknown type of cancers in their 70s and 80s, mother with unknown type of fatal metastatic abdominal cancer in her 70s - Tobacco Use Smoking Status *Q: Current Every Day Smoker Tobacco Use Within Last Twelve Months: Snuff/Dip Years of Tobacco use: 58 Packs/Tins Daily: 0.1 Packs/Tins Daily Comment: Chewing tobacco use since age 15 with previous maximum use of 2 boxes per week and occasional previous cigarette use Used Tobacco, but Quit: No Smoking Cessation Information Provided To Patient: Yes Second Hand Smoke Exposure: No Second Hand Smoke Education Provided: No - Caffeine Use Caffeine Use: Reports: Coffee (1 cup per day), Soda (4 sodas per day). Denies: Energy Drinks, Tea - Alcohol Use Alcohol Use History: Yes Days Per Week of Alcohol Use: 0 Number of Drinks Per Day: 2 Number of Drinks Per Day Comment: Usually beer about twice per month. No previous DWIs, problems with alcohol abuse, etc. 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 ED EXAM, GENERAL - Physical Exam Exam: See Below Exam Limited By: No Limitations General Appearance: Alert, WD/WN, No Apparent Distress Eye Exam: Bilateral Eye: EOMI, Normal Inspection (No nystagmus. Patient wearing glasses) Ears: Normal External Exam, Normal Canal, Normal TMs, Hearing Loss (Bilateral presbycusismild). No: Hearing Grossly Normal Nose: Normal Inspection, Normal Mucosa, No Blood Throat/Mouth: Normal Lips, Normal Gums, Normal Oropharynx, Normal Voice, No Airway Compromise. No: Normal Teeth (Multiple missing teeth lowers with patient having chewing tobacco in oral cavity. Partial upper dentures.), Dysphagia, Perioral Cyanosis Head: Atraumatic, Normocephalic. No: Facial Swelling, Facial Tenderness, Sinus Tenderness Neck: Supple, Non-Tender, Full Range of Motion, Carotid Bruit (Mild bilateral carotid bruits). No: Lymphadenopathy (L), Lymphadenopathy (R), Thyromegaly Respiratory/Chest: No Respiratory Distress, Lungs Clear, Normal Breath Sounds, No Accessory Muscle Use, Chest Non-Tender. No: Pleural Rub, Retractions Cardiovascular: Normal Peripheral Pulses, Regular Rate, Rhythm, No Edema, No Gallop, No JVD, No Murmur, No Rub. No: Gallop/S3, Gallop/S4, Friction Rub Peripheral Pulses: 2+: Radial (L), Radial (R), Dorsalis Pedis (L), Dorsalis Pedis (R) GI/Abdominal: Normal Bowel Sounds, Soft, Non-Tender, No Organomegaly, No Distention, No Abnormal Bruit, No Mass, Pelvis Stable, Other (Obese). No: Guarding (Male) Exam: Deferred Rectal (Males) Exam: Deferred Back Exam: Normal Inspection, Full Range of Motion. No: CVA Tenderness (L), CVA Tenderness (R), Muscle Spasm Extremities: Normal Inspection, Normal Range of Motion, Non-Tender, No Pedal Edema, Normal Capillary Refill. No: Jatin's Sign Neurological: Alert, Oriented, CN II-XII Intact, Normal Cognition, Normal Gait, Normal Reflexes (Negative Babinski's), No Motor/Sensory Deficits Psychiatric: Normal Affect, Normal Mood Skin Exam: Warm, Dry, Intact, Normal Color, No Rash. No: Diaphoretic, Tattoo(s) Lymphatic: No Adenopathy EKG INTERPRETATION EKG Date: 03/05/19 Time: 15:41 Rhythm: NSR Rate (Beats/Min): 69 Jackson: Normal (Left cardiac axis) P-Wave: Enlarged (Diffuse biphasic P wavesmild) QRS: Normal (0.09 seconds representing resolution of previous right bundle branch block) ST-T: Normal (With resolved T-wave inversion since last EKG as below) QT: Normal PA/PQ Interval: 0.15 seconds Comparison: Change From Previous EKG (As above since 08/02/18.) EKG Interpretation Comments: 1. No acute ischemic changes 2. Left Atrial enlargement Course - Vital Signs Last Recorded V/S: Last Vital Signs Temp 37.0 C 03/05/19 15:39 Pulse 68 03/05/19 16:27 Resp 20 03/05/19 16:27 BP 126/64 03/05/19 16:27 Pulse Ox 95 03/05/19 16:27 Vital Signs - 24 hr 03/05/19 03/05/19 03/05/19 15:39 15:40 15:48 Temperature [ 37.0 C Oral] Pulse, 72 Peripheral [ Left Brachial] Respiratory 20 Rate Blood Pressure Blood Pressure 137/65 [Left Lower Arm ] Blood Pressure [Left Upper Arm ] Blood Pressure 171/146 H 122/50 L [Right Upper Arm] O2 Sat by Pulse 96 Oximetry 03/05/19 03/05/19 03/05/19 16:05 16:27 16:45 Temperature [ Oral] Pulse, 68 68 Peripheral [ Left Brachial] Respiratory 20 14 Rate Blood Pressure 131/91 H Blood Pressure [Left Lower Arm ] Blood Pressure 126/64 120/52 L [Left Upper Arm ] Blood Pressure [Right Upper Arm] O2 Sat by Pulse 95 96 Oximetry 03/05/19 17:00 Temperature [ Oral] Pulse, 64 Peripheral [ Left Brachial] Respiratory 15 Rate Blood Pressure Blood Pressure [Left Lower Arm ] Blood Pressure 120/57 L [Left Upper Arm ] Blood Pressure [Right Upper Arm] O2 Sat by Pulse 97 Oximetry - Orders/Labs/Meds Orders: Active Orders 24 hr Category Date Time Status Cardiac Monitoring [RC] . DIRECTED Care 03/05/19 15:43 EKG Documentation Completion [RC] ASDIRECTED Care 03/05/19 15:43 Oxygen Therapy, ED [RC] CONTINUOUS Care 03/05/19 15:43 Peripheral IV Care [RC] . DIRECTED Care 03/05/19 15:43 Pulse Oximetry [RC] CONTINUOUS Care 03/05/19 15:43 Up With Assistance [RC] PFP Care 03/05/19 15:43 Vital Signs [RC] PFP Care 03/05/19 15:43 Nothing per Oral Now Diet [DIET] Diet 03/05/19 Breakfast Active Chest 1V Frontal [CR] Stat Exams 03/05/19 15:43 Taken Nitroglycerin [Nitrostat] Med 03/05/19 15:44 Stat 0.4 mg SL ONETIME STA Sodium Chloride 0.9% [Saline Flush] Med 03/05/19 15:42 Active 10 ml FLUSH ASDIRECTED PRN Obtain Past Medical Record [OM.PC] Urgent Oth 03/05/19 15:43 Active Peripheral IV Insertion Adult [OM.PC] Stat Oth 03/05/19 15:43 Ordered Resuscitation Status Stat Resus Stat 03/05/19 15:42 Ordered Medication Orders Nitroglycerin (Nitrostat) 0.4 mg SL ONETIME STA Stop: 03/06/19 15:45 Last Admin: 03/05/19 16:05 Dose: 0.4 mg Sodium Chloride (Saline Flush) 10 ml FLUSH ASDIRECTED PRN PRN Reason: Keep Vein Open Last Admin: 03/05/19 16:08 Dose: 10 ml Labs: Laboratory Tests 03/05/19 03/05/19 03/05/19 Range/Units 16:00 16:00 16:00 WBC 8.0 (4.0-10.2) K/uL RBC 4.52 (4.33-5.41) M/uL Hgb 14.1 (13.1-16.8) g/dL Hct 42.3 (39.0-49.0) % MCV 93.6 (84.0-98.0) fL MCH 31.2 (28.2-33.3) pg MCHC 33.3 (31.7-36.0) g/dL RDW 13.0 (11.2-14.1) % Plt Count 281 (150-350) K/uL Neut % (Auto) 65.6 (45.0-80.0) % Lymph % (Auto) 23.9 (10.0-50.0) % [place] % (Auto) 8.1 (2.0-14.0) % Eos % (Auto) 2.3 (0.0-5.0) % Baso % (Auto) 0.1 (0.0-2.0) % Neut # (Auto) 5.23 (1.40-7.00) K/uL Lymph # (Auto) 1.91 (0.50-3.50) K/uL [place] # (Auto) 0.65 (0.00-1.00) K/uL Eos # (Auto) 0.18 (0.00-0.50) K/uL Baso # (Auto) 0.01 (0.00-0.20) K/uL PT 10.0 (9.5-12.0) SEC INR 0.9 APTT 23.2 (21.0-31.3) SEC D-Dimer, Quantitative 116 (0-400) ng/mL Sodium (136-145) mmol/L Potassium (3.5-5.1) mmol/L Chloride (98-107) mmol/L Carbon Dioxide (21.0-32.0) mmol/L BUN (7-18) mg/dL Creatinine (0.51-1.17) mg/dL Est Cr Clr Drug Dosing mL/min Estimated GFR (MDRD) mL/min Glucose (74-106) mg/dL Lactic Acid (0.4-2.0) mmol/L Uric Acid (2.6-7.2) mg/dL Calcium (8.5-10.1) mg/dL Magnesium (1.8-2.4) mg/dL Total Bilirubin (0.2-1.0) mg/dL AST (15-37) U/L ALT (12-78) U/L Alkaline Phosphatase (46-116) IU/L Creatine Kinase (26-308) U/L Creatine Kinase Index (0.0-2.5) % CK-MB (CK-2) (0.00-3.60) ng/mL Troponin I (0.000-0.056) ng/mL NT-Pro-B Natriuret Pep (0-125) pg/mL Total Protein (6.4-8.2) g/dL Albumin (3.4-5.0) g/dL TSH, Ultra Sensitive (0.358-3.740) mIU/mL 03/05/19 03/05/19 Range/Units 16:00 16:00 WBC (4.0-10.2) K/uL RBC (4.33-5.41) M/uL Hgb (13.1-16.8) g/dL Hct (39.0-49.0) % MCV (84.0-98.0) fL MCH (28.2-33.3) pg MCHC (31.7-36.0) g/dL RDW (11.2-14.1) % Plt Count (150-350) K/uL Neut % (Auto) (45.0-80.0) % Lymph % (Auto) (10.0-50.0) % Ball[place] % (Auto) (2.0-14.0) % Eos % (Auto) (0.0-5.0) % Baso % (Auto) (0.0-2.0) % Neut # (Auto) (1.40-7.00) K/uL Lymph # (Auto) (0.50-3.50) K/uL Ballard # (Auto) (0.00-1.00) K/uL Eos # (Auto) (0.00-0.50) K/uL Baso # (Auto) (0.00-0.20) K/uL PT (9.5-12.0) SEC INR APTT (21.0-31.3) SEC D-Dimer, Quantitative (0-400) ng/mL Sodium 137 (136-145) mmol/L Potassium 4.2 (3.5-5.1) mmol/L Chloride 100 (98-107) mmol/L Carbon Dioxide 28.5 (21.0-32.0) mmol/L BUN 27 H (7-18) mg/dL Creatinine 1.14 (0.51-1.17) mg/dL Est Cr Clr Drug Dosing 63.30 mL/min Estimated GFR (MDRD) > 60 mL/min Glucose 113 H (74-106) mg/dL Lactic Acid 0.9 (0.4-2.0) mmol/L Uric Acid 4.3 (2.6-7.2) mg/dL Calcium 8.9 (8.5-10.1) mg/dL Magnesium 1.9 (1.8-2.4) mg/dL Total Bilirubin 0.6 (0.2-1.0) mg/dL AST 30 (15-37) U/L ALT 59 (12-78) U/L Alkaline Phosphatase 60 (46-116) IU/L Creatine Kinase 311 H (26-308) U/L Creatine Kinase Index 2.3 (0.0-2.5) % CK-MB (CK-2) 7.10 H* (0.00-3.60) ng/mL Troponin I 0.000 (0.000-0.056) ng/mL NT-Pro-B Natriuret Pep 61 (0-125) pg/mL Total Protein 6.8 (6.4-8.2) g/dL Albumin 3.7 (3.4-5.0) g/dL TSH, Ultra Sensitive 0.644 (0.358-3.740) mIU/mL Meds: Medications Generic Name Dose Route Start Last Admin Trade Name Freq PRN Reason Stop Dose Admin Nitroglycerin 0.4 mg 03/05/19 15:44 03/05/19 16:05 Nitrostat SL 03/06/19 15:45 0.4 mg ONETIME STA Administration Sodium Chloride 10 ml 03/05/19 15:42 03/05/19 16:08 Saline Flush FLUSH 10 ml ASDIRECTED PRN Administration Keep Vein Open Discontinued Medications Generic Name Dose Route Start Last Admin Trade Name Freq PRN Reason Stop Dose Admin Aspirin 324 mg 03/05/19 15:42 03/05/19 16:03 Aspirin CHEW 03/05/19 15:43 324 mg ONETIME ONE Administration Famotidine 40 mg 03/05/19 15:42 03/05/19 16:10 Pepcid IVPUSH 03/05/19 15:43 40 mg ONETIME ONE Administration Ticagrelor 180 mg 03/05/19 15:42 03/05/19 16:04 Brilinta PO 03/05/19 15:43 180 mg ONETIME ONE Administration - Radiology Interpretation Free Text/Narrative:: Detail Drafter shows normal sinus rhythm with heart rate in the 60s with no ectopy or arrhythmia. Chest X-ray, portable, shows no evidence of cardio megaly, CHF, pulmonary infiltrates, pneumothorax, etc. Departure - Departure Time of Disposition: 17:45 Disposition: Refer to Observation Condition: Good Clinical Impression: Peptic reflux disease, Tobacco abuse counseling, Hyperglycemia Chest pain Qualifiers: Chest pain type: unspecified Qualified Code(s): R07.9 - Chest pain, unspecified Hyperlipidemia Qualifiers: Hyperlipidemia type: unspecified Qualified Code(s): E78.5 - Hyperlipidemia, unspecified Osteoarthritis Qualifiers: Osteoarthritis location: multiple joints Osteoarthritis type: primary Qualified Code(s): M15.0 - Primary generalized (osteo)arthritis Hypertension Qualifiers: Hypertension type: essential hypertension Qualified Code(s): I10 - Essential ( primary) hypertension COPD (chronic obstructive pulmonary disease) Qualifiers: COPD type: emphysema Emphysema type: panlobular Qualified Code(s): J43.1 - Panlobular emphysema Coronary artery disease Qualifiers: Coronary Disease-Associated Artery/Lesion type: [place] artery [place] vs. transplanted heart: [place] heart Associated angina: with unstable angina Qualified Code(s): I25.110 - Atherosclerotic heart disease of [place] coronary artery with unstable angina pectoris Referrals: Douglas Zavala MD [Primary Care Provider] - Forms: ED Department Discharge Care Plan Goals: See plan - Problem List & Annotations (1) Chest pain SNOMED Code(s): 88173032 Code(s): R07.9 - CHEST PAIN, UNSPECIFIED Status: Acute Priority: High Current Visit: Yes Onset Date: 03/04/19 Annotation/Comment:: Chest pain protocol initiated upon patient's arrival to the emergency room. Symptoms completely resolved with aggressive medical treatment as above. Initiate standard rule out [place] orders. Cardiology consultation depending on his clinical course. Repeat Cardiolite stress test on an outpatient basis is recommended. Qualifiers: Chest pain type: unspecified Qualified Code(s): R07.9 - Chest pain, unspecified (2) Coronary artery disease SNOMED Code(s): 69418769 Code(s): I25.10 - ATHSCL HEART DISEASE OF [place] CORONARY ARTERY W/O ANG PCTRS Status: Chronic Priority: Medium Current Visit: Yes Annotation/ Comment:: Known previous coronary artery disease with PTCA/stent as above. Persistent 50% LAD stenosis at time of last heart catheterization. In addition note mild to moderate bilateral carotid occlusive disease. Qualifiers: Coronary Disease-Associated Artery/Lesion type: [place] artery [place] vs. transplanted heart: [place] heart Associated angina: with unstable angina Qualified Code(s): I25.110 - Atherosclerotic heart disease of [place] coronary artery with unstable angina pectoris (3) Hypertension SNOMED Code(s): 58775870 Code(s): I10 - ESSENTIAL (PRIMARY) HYPERTENSION Status: Chronic Priority : Medium Current Visit: Yes Annotation/Comment:: Blood pressures under good control in the emergency room. Continue to observe closely. 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 High-dose IV Pepcid given in the emergency room. Further GI workup depending on his clinical course. Note previous negative H. pylori gastric biopsy. (5) Hyperlipidemia SNOMED Code(s): 28429849 Code(s): E78.5 - HYPERLIPIDEMIA, UNSPECIFIED Status: Chronic Priority: Medium Current Visit: Yes Annotation/Comment:: Currently under therapy with lipid panel with lipid profile and glycosylated hemoglobin in the a.m. Qualifiers: Hyperlipidemia type: unspecified Qualified Code(s): E78.5 - Hyperlipidemia , unspecified (6) Osteoarthritis SNOMED Code(s): 695521935 Code(s): M19.90 - UNSPECIFIED OSTEOARTHRITIS, UNSPECIFIED SITE Status: Chronic Priority: Medium Current Visit: Yes Annotation/Comment:: Stable by patient history Qualifiers: Osteoarthritis location: multiple joints Osteoarthritis type: primary Qualified Code(s): M15.0 - Primary generalized (osteo)arthritis (7) Tobacco abuse counseling SNOMED Code(s): 504700706, 309448284, 521190600 Code(s): Z71.6 - TOBACCO ABUSE COUNSELING Status: Chronic Priority: Medium Current Visit: No Annotation/Comment:: Tobacco cessation once again strongly encouraged with information to be provided at discharge. Patient was counseled on the use of Nicorette gum by me in the emergency room. (8) COPD (chronic obstructive pulmonary disease) SNOMED Code(s): 62858677 Code(s): J44.9 - CHRONIC OBSTRUCTIVE PULMONARY DISEASE, UNSPECIFIED Status : Chronic Priority: Medium Current Visit: Yes Annotation/Comment:: No current fever or bronchitic type symptoms Qualifiers: COPD type: emphysema Emphysema type: panlobular Qualified Code(s): J43.1 - Panlobular emphysema (9) Tobacco abuse counseling SNOMED Code(s): 598015862, [id number], [id number] Code(s): Z71.6 - TOBACCO ABUSE COUNSELING Status: Chronic Priority: Medium Current Visit: Yes Annotation/Comment:: Chewing tobacco cessation was again strongly encouraged with information previously provided and the patient counseled on the use of Nicorette gum (10) Hyperglycemia SNOMED Code(s): 99521626 Code(s): R73.9 - HYPERGLYCEMIA, UNSPECIFIED Status: Chronic Priority: Medium Current Visit: Yes Annotation/Comment:: Currently diet-controlled. Glycosylated hemoglobin in the a.m. - Problem List Review Problem List Initiated/Reviewed/Updated: Yes - My Orders Last 24 Hours: My Active Orders 03/05/19 15:42 Sodium Chloride 0.9% [Saline Flush] 10 ml FLUSH ASDIRECTED PRN Resuscitation Status Stat 03/05/19 15:43 Cardiac Monitoring [RC] . DIRECTED EKG Documentation Completion [RC] ASDIRECTED Oxygen Therapy, ED [RC] CONTINUOUS Peripheral IV Care [RC] . DIRECTED Pulse Oximetry [RC] CONTINUOUS Up With Assistance [RC] PFP Vital Signs [RC] PFP Chest 1V Frontal [CR] Stat Obtain Past Medical Record [OM.PC] Urgent Peripheral IV Insertion Adult [OM.PC] Stat 03/05/19 15:44 Nitroglycerin [Nitrostat] 0.4 mg SL ONETIME STA 03/05/19 Breakfast Nothing per Oral Now Diet [DIET] - Assessment/Plan Admission H&P: Please use this note as an admission H&P Last 24 Hours: My Active Orders 03/05/19 15:42 Sodium Chloride 0.9% [Saline Flush] 10 ml FLUSH ASDIRECTED PRN Resuscitation Status Stat 03/05/19 15:43 Cardiac Monitoring [RC] . DIRECTED EKG Documentation Completion [RC] ASDIRECTED Oxygen Therapy, ED [RC] CONTINUOUS Peripheral IV Care [RC] . DIRECTED Pulse Oximetry [RC] CONTINUOUS Up With Assistance [RC] PFP Vital Signs [RC] PFP Chest 1V Frontal [CR] Stat Obtain Past Medical Record [OM.PC] Urgent Peripheral IV Insertion Adult [OM.PC] Stat 03/05/19 15:44 Nitroglycerin [Nitrostat] 0.4 mg SL ONETIME STA 03/05/19 Breakfast Nothing per Oral Now Diet [DIET] Assessment:: As above Plan: As above. Extensive precautions were given to the patient, who is in agreement with the treatment plan. The patient's condition is stable enough for observation status and general supervision.
[2019-03-05] MEDS: Aspirin 81 MG Tab.Chew CHEW ONE (16:03)
[2019-03-05] MEDS: Ticagrelor 90 MG Tab PO ONE (16:04)
[2019-03-05] MEDS: Nitroglycerin 0.4 MG Tab.SL SL STA (16:05)
[2019-03-05] MEDS: Sodium Chloride 0.9% 10 ML Syringe FLUSH PRN (16:08)
[2019-03-05] MEDS: Famotidine 20 MG/2 ML SDV IVPUSH ONE (16:10)
[2019-03-05 16:27] LABS: CHLORIDE,CL 100 mmol/L (98-107); SODIUM,NA 137 mmol/L (136-145)
[2019-03-05] MEDS ORDERED: Sodium Chloride 0.9% 10 ML Syringe FLUSH PRN (19:44)
[2019-03-05] MEDS ORDERED: Temazepam 15 MG Cap PO PRN (19:44)
[2019-03-05] MEDS ORDERED: Acetaminophen 325 MG Tab PO PRN (19:44)
[2019-03-06 07:46] LABS: HEMOGLOBIN A1C 6.6 % (4.3-5.7)
[2019-03-06 08:26] LABS: CHLORIDE,CL 104 mmol/L (98-107); SODIUM,NA 140 mmol/L (136-145)
[2019-03-06] MEDS: Lisinopril 10 MG Tab PO SCH (08:46)
[2019-03-06] MEDS: Clopidogrel 75 MG Tab PO SCH (08:47)
[2019-03-06] MEDS: atorvaSTATin 40 MG Tab PO SCH (08:47)
[2019-03-06] MEDS: Aspirin 81 MG Tab.EC PO SCH (08:48)
[2019-03-06] MEDS: Metoprolol Succinate 50 MG Tab.ER PO SCH (09:27)
--- NOTE | 2019-03-06 12:13 | PCM.DCSUM1 ---
Discharge Summary - Hospital Course HPI Initial Comments: See emergency room note/admission H&P Brief History: See emergency room note/admission H&P. Diagnosis: Stroke: No Modified [place] Scale: No Symptoms at All Modified [place] Scale Score: 0 - Discharge Data Discharge Date: 03/06/19 Discharge Disposition: Home, Self-Care 01 Condition: Good - Discharge Diagnosis/Problem(s) (1) Chest pain SNOMED Code(s): 10984274 ICD Code: R07.9 - CHEST PAIN, UNSPECIFIED Status: Acute Priority: High Current Visit: Yes Onset Date: 03/04/19 Problem Details: Negative Workup for acute [place] as above. Note significant coronary artery disease including persistent 50% LAD stenosis at time of last heart catheterization. Activity restrictions, etc. discussed. Cardiolite stress test will be conducted by me in this facility with close follow-up by his regular provider as per discharge instructions. Work excuse provided. Chest pain protocol was immediately initiated upon patient 's arrival to the emergency room. Symptoms completely resolved with aggressive medical treatment in the emergency room. Cardiology consultation depending on his clinical course and Cardiolite stress test results. Note complete normalization of CPK and CPKMB elevations with normal cardiac indexes throughout the entire hospitalization and no evidence of rhabdomyolysis, etc. Qualifiers: Chest pain type: unspecified Qualified Code(s): R07.9 - Chest pain, unspecified (2) Coronary artery disease SNOMED Code(s): 44864133 ICD Code: I25.10 - ATHSCL HEART DISEASE OF [place] CORONARY ARTERY W/O ANG PCTRS Status: Chronic Priority: Medium Current Visit: Yes Problem Details: Known previous coronary artery disease with PTCA/stent as per emergency room note. Persistent 50% LAD stenosis at time of last heart catheterization. In addition, note mild to moderate bilateral carotid occlusive disease with continued close observation by his regular provider. Patient does have a new supply of sublingual nitroglycerin tablets, which are about 6 months old. He was once again counseled on the proper use of this medication. Qualifiers: Coronary Disease-Associated Artery/Lesion type: [place] artery [place] vs. transplanted heart: [place] heart Associated angina: with unstable angina Qualified Code(s): I25.110 - Atherosclerotic heart disease of [place] coronary artery with unstable angina pectoris (3) Hypertension SNOMED Code(s): 40663507 ICD Code: I10 - ESSENTIAL (PRIMARY) HYPERTENSION Status: Chronic Priority : Medium Current Visit: Yes Problem Details: Blood pressures under good control in the emergency room and during this hospitalization. Continue to observe closely. 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 High-dose IV Pepcid given in the emergency room. Further GI workup depending on his clinical course. Note previous negative H. pylori gastric biopsy. Consider change from current Prilosec to Pepcid therapy secondary to Prilosec possible reduction of the effectiveness of his Plavix. (5) Hyperlipidemia SNOMED Code(s): 95511947 ICD Code: E78.5 - HYPERLIPIDEMIA, UNSPECIFIED Status: Chronic Priority: Medium Current Visit: Yes Problem Details: Currently under therapy with lipid panel with lipid profile and glycosylated hemoglobin this morning showing overall adequate control. Weight loss in moderation is advisable, however note recent approximately 15 pound unintentional weight loss during the last few months despite his poor dietary come plans with his heart healthy diet. Dietary information provided at discharge. Qualifiers: Hyperlipidemia type: mixed hyperlipidemia Qualified Code(s): E78.2 - Mixed hyperlipidemia (6) Osteoarthritis SNOMED Code(s): 301960790 ICD Code: M19.90 - UNSPECIFIED OSTEOARTHRITIS, UNSPECIFIED SITE Status: Chronic Priority: Medium Current Visit: Yes Problem Details: Stable by patient history Qualifiers: Osteoarthritis location: multiple joints Osteoarthritis type: primary Qualified Code(s): M15.0 - Primary generalized (osteo)arthritis (7) Tobacco abuse counseling SNOMED Code(s): 277957706, 586774215, 893643691 ICD Code: Z71.6 - TOBACCO ABUSE COUNSELING Status: Chronic Priority: Medium Current Visit: No Problem Details: Tobacco cessation once again strongly encouraged with information provided at discharge. Patient was counseled on the use of Nicorette gum by me in the emergency room. (8) COPD (chronic obstructive pulmonary disease) SNOMED Code(s): 06271995 ICD Code: J44.9 - CHRONIC OBSTRUCTIVE PULMONARY DISEASE, UNSPECIFIED Status : Chronic Priority: Medium Current Visit: Yes Problem Details: No current fever or bronchitic type symptoms Qualifiers: COPD type: emphysema Emphysema type: panlobular Qualified Code(s): J43.1 - Panlobular emphysema (9) Hyperglycemia SNOMED Code(s): 22250195 ICD Code: R73.9 - HYPERGLYCEMIA, UNSPECIFIED Status: Chronic Priority: Medium Current Visit: Yes Problem Details: Currently diet-controlled. Glycosylated hemoglobin in the a.m. (10) Weight loss SNOMED Code(s): 90390666, 154134380 ICD Code: R63.4 - ABNORMAL WEIGHT LOSS Status: Chronic Priority: High Current Visit: Yes Problem Details: Unintentional weight loss as above. Continue to observe closely by his regular provider with further workup depending on his clinical course. - Patient Summary/Data Operative Procedure(s) Performed: None Complications: None Consults: None Labs Pending at D/C: H. pylori stool antigen. Recommended Follow-up Testing/Procedures: As per discharge instructions Planned Operative Procedure(s) after DC: None Hospital Course: The patient was placed in observation status on telemetry with negative workup for acute [place] as above. Symptoms completely resolved at time of admission with no recurrence during this hospitalization. Further cardiac workup on an outpatient basis as above. - Patient Instructions Diet: Heart Healthy Diet Activity: No Strenuous Activities (50% maximum exercise restriction until released by your regular provider) Driving: May Drive Today Showering/Bathing: May Shower Notify Provider of: Fever, Increased Pain, Nausea and/or Vomiting Other/Special Instructions: 1. Follow-up with your regular provider tomorrow as already scheduled. 2. Cardiolite stress test is to be conducted by me in this facility on 03/13 with this hospital to call you at a later time with specific instructions, etc. 3. Follow-up with your regular provider once again in 2 weeks for discussion of Cardiolite scan results and possible further cardiology referral and/or workup. 4. Discuss recent unintentional weight loss with your regular provider after follow-up visits with possible further workup as discussed. 5. Stop all tobacco use ARLINE as directed/per provided information and consider contacting [employer]uit [employer], etc.. 6. Immediately after this visit verify that your cellular telephone's voicemail has been activated and is empty. Also verify that your home telephone's answering machine is operating properly and has space to receive messages. Note that it is sometimes necessary for us to be able to contact you at a later date to discuss your medical care. 7. Please remember that we are ALWAYS here for you and want to answer any questions you may have. Feel free to call the hospital any time and we call you back ARLINE. - Discharge Plan *PRESCRIPTION DRUG MONITORING PROGRAM REVIEWED*: Not Applicable *COPY OF PRESCRIPTION DRUG MONITORING REPORT IN PATIENT EYAD: Not Applicable Home Medications: Home Meds Omeprazole [Prilosec] 40 mg PO DAILY 06/02/15 [History] Metoprolol Succinate [Toprol XL] 50 mg PO BID #60 tab.er 05/31/17 [Rx] Aspirin [Halfprin] 81 mg PO DAILY 08/13/18 [History] Clopidogrel Bisulfate [Clopidogrel] 75 mg PO DAILY 08/13/18 [History] Nitroglycerin [Nitrostat] 0.4 mg SL ASDIRECTED PRN 08/13/18 [History] atorvaSTATin Calcium [Atorvastatin Calcium] 40 mg PO DAILY 08/13/18 [History] Lisinopril 10 mg PO QAM 03/05/19 [History] Acetaminophen [Tylenol] 650 mg PO Q4H PRN tablet 03/06/19 [Rx] Oxygen Therapy Mode: Room Air Patient Handouts: Ticagrelor oral tablet, Famotidine injection, Aspirin and Your Heart, Aspirin, ASA oral tablets Forms: Return to Work/Inpatient LLN, ED Department Discharge Referrals: Douglas Zavala MD [Primary Care Provider] - - Discharge Summary/Plan Comment DC Time >30 min.: Yes (Coordination of care ) Discharge Summary/Plan Comment: As above. Extensive precautions were given to the patient, who is in agreement with the treatment plan. See Patient Instructions for further treatment and plan. - General Info Date of Service: 03/06/19 Functional Status: Reports: Pain Controlled, Tolerating Diet, Ambulating, Urinating. Denies: New Symptoms, Incentive Spirometry Numeric/FACES Score: 0 - Review of Systems General: Reports: No Symptoms. Denies: Fever, Weakness, Fatigue, Malaise, Chills, Night Sweats, Appetite HEENT: Reports: Glasses. Denies: Ear Pain, Headaches, Post Nasal Drip, Sinus Congestion, Rhinitis, Visual Changes Pulmonary: Reports: No Symptoms. Denies: Shortness of Breath, Pleuritic Chest Pain, Cough, Sputum, Hemoptysis, Wheezing Cardiovascular: Reports: No Symptoms. Denies: Chest Pain, Palpitations, Dyspnea on Exertion, Orthopnea, Edema, Lightheadedness Gastrointestinal: Reports: No Symptoms, Other (Normal bowel movement earlier this morning). Denies: Abdominal Pain, Constipation, Decreased Appetite, Diarrhea, Difficulty Swallowing, Flatus, Hematochezia, Melena, Nausea, Vomiting Genitourinary: Reports: No Symptoms. Denies: Dysuria, Frequency, Burning, Urgency, Incontinence, Hematuria, Retention, Flank Pain Musculoskeletal: Reports: No Symptoms. Denies: Neck Pain, Shoulder Pain, Arm Pain, Back Pain, Leg Pain Skin: Reports: No Symptoms. Denies: Diaphoresis, Bruising Neurological: Reports: No Symptoms. Denies: Confusion, Dizziness, Headache, Numbness, Paresthesia, Tingling, Weakness Psychiatric: Reports: No Symptoms. Denies: Confusion, Depression, Anxiety, Agitation, Cravings - Patient Data Vitals - Most Recent: Last Vital Signs Temp 36.6 C 03/06/19 07:27 Pulse 65 03/06/19 09:27 Resp 20 03/06/19 07:27 BP 157/79 H 03/06/19 09:27 Pulse Ox 95 03/06/19 07:27 Vital Signs - 24 hr 03/05/19 03/05/19 03/05/19 15:39 15:40 15:48 Temperature [ 37.0 C Oral] Temperature [ Temporal] Pulse, Peripheral Pulse, 72 Peripheral [ Left Brachial] Pulse, Peripheral [ Right Pulse Oximetry] Respiratory 20 Rate Blood Pressure Blood Pressure 137/65 [Left Lower Arm ] Blood Pressure [Left Upper Arm ] Blood Pressure 171/146 H 122/50 L [Right Upper Arm] O2 Sat by Pulse 96 Oximetry 03/05/19 03/05/19 03/05/19 16:05 16:27 16:45 Temperature [ Oral] Temperature [ Temporal] Pulse, Peripheral Pulse, 68 68 Peripheral [ Left Brachial] Pulse, Peripheral [ Right Pulse Oximetry] Respiratory 20 14 Rate Blood Pressure 131/91 H Blood Pressure [Left Lower Arm ] Blood Pressure 126/64 120/52 L [Left Upper Arm ] Blood Pressure [Right Upper Arm] O2 Sat by Pulse 95 96 Oximetry 03/05/19 03/05/19 03/05/19 17:00 17:30 18:00 Temperature [ Oral] Temperature [ Temporal] Pulse, Peripheral Pulse, 64 64 66 Peripheral [ Left Brachial] Pulse, Peripheral [ Right Pulse Oximetry] Respiratory 15 18 16 Rate Blood Pressure Blood Pressure [Left Lower Arm ] Blood Pressure 120/57 L 122/55 L 126/62 [Left Upper Arm ] Blood Pressure [Right Upper Arm] O2 Sat by Pulse 97 96 96 Oximetry 03/05/19 03/05/19 03/06/19 19:00 19:45 00:00 Temperature [ 36.7 C 36.4 C 36.3 C Oral] Temperature [ Temporal] Pulse, Peripheral Pulse, 65 64 66 Peripheral [ Left Brachial] Pulse, Peripheral [ Right Pulse Oximetry] Respiratory 18 16 16 Rate Blood Pressure Blood Pressure [Left Lower Arm ] Blood Pressure 128/69 112/57 L [Left Upper Arm ] Blood Pressure 135/83 [Right Upper Arm] O2 Sat by Pulse 99 95 95 Oximetry 03/06/19 03/06/19 03/06/19 04:00 07:27 08:46 Temperature [ 36.2 C Oral] Temperature [ 36.6 C Temporal] Pulse, Peripheral Pulse, Peripheral [ Left Brachial] Pulse, 81 65 Peripheral [ Right Pulse Oximetry] Respiratory 16 20 Rate Blood Pressure 157/79 H Blood Pressure [Left Lower Arm ] Blood Pressure 119/64 [Left Upper Arm ] Blood Pressure 157/79 H [Right Upper Arm] O2 Sat by Pulse 95 95 Oximetry 03/06/19 09:27 Temperature [ Oral] Temperature [ Temporal] Pulse, 65 Peripheral Pulse, Peripheral [ Left Brachial] Pulse, Peripheral [ Right Pulse Oximetry] Respiratory Rate Blood Pressure 157/79 H Blood Pressure [Left Lower Arm ] Blood Pressure [Left Upper Arm ] Blood Pressure [Right Upper Arm] O2 Sat by Pulse Oximetry Weight - Most Recent: 98.293 kg I&O - Last 24 hours: Intake & Output 03/05/19 03/06/19 03/06/19 22:59 06:59 14:59 Intake Total 300 240 Output Total 1800 200 Balance 300 -1800 40 Imaging Impressions - Last 24 hrs: [employer] shows normal sinus rhythm with heart rate in the 60s with no ectopy or arrhythmia Chest X-ray, portable, on 03/05/19 shows no evidence of cardio megaly, CHF, pulmonary infiltrates, pneumothorax, etc. Lab Results - Last 24 hrs: Laboratory Results - last 24 hr 03/05/19 03/05/19 03/05/19 Range/Units 16:00 16:00 16:00 WBC 8.0 (4.0-10.2) K/uL RBC 4.52 (4.33-5.41) M/uL Hgb 14.1 (13.1-16.8) g/dL Hct 42.3 (39.0-49.0) % MCV 93.6 (84.0-98.0) fL MCH 31.2 (28.2-33.3) pg MCHC 33.3 (31.7-36.0) g/dL RDW 13.0 (11.2-14.1) % Plt Count 281 (150-350) K/uL Neut % (Auto) 65.6 (45.0-80.0) % Lymph % (Auto) 23.9 (10.0-50.0) % [place] % (Auto) 8.1 (2.0-14.0) % Eos % (Auto) 2.3 (0.0-5.0) % Baso % (Auto) 0.1 (0.0-2.0) % Neut # (Auto) 5.23 (1.40-7.00) K/uL Lymph # (Auto) 1.91 (0.50-3.50) K/uL [place] # (Auto) 0.65 (0.00-1.00) K/uL Eos # (Auto) 0.18 (0.00-0.50) K/uL Baso # (Auto) 0.01 (0.00-0.20) K/uL PT 10.0 (9.5-12.0) SEC INR 0.9 APTT 23.2 (21.0-31.3) SEC D-Dimer, Quantitative 116 (0-400) ng/mL Sodium (136-145) mmol/L Potassium (3.5-5.1) mmol/L Chloride (98-107) mmol/L Carbon Dioxide (21.0-32.0) mmol/L BUN (7-18) mg/dL Creatinine (0.51-1.17) mg/dL Est Cr Clr Drug Dosing mL/min Estimated GFR (MDRD) mL/min Glucose (74-106) mg/dL Hemoglobin A1c (4.3-5.7) % Lactic Acid (0.4-2.0) mmol/L Uric Acid (2.6-7.2) mg/dL Calcium (8.5-10.1) mg/dL Magnesium (1.8-2.4) mg/dL Total Bilirubin (0.2-1.0) mg/dL AST (15-37) U/L ALT (12-78) U/L Alkaline Phosphatase (46-116) IU/L Creatine Kinase (26-308) U/L Creatine Kinase Index (0.0-2.5) % CK-MB (CK-2) (0.00-3.60) ng/mL Troponin I (0.000-0.056) ng/mL NT-Pro-B Natriuret Pep (0-125) pg/mL Total Protein (6.4-8.2) g/dL Albumin (3.4-5.0) g/dL Triglycerides (30-150) mg/dL Cholesterol (100-200) mg/dL LDL Cholesterol, Calc (0-100) mg/dL HDL Cholesterol (40-60) mg/dL TSH, Ultra Sensitive (0.358-3.740) mIU/mL Specimen Type Urine Color Urine Appearance Urine pH (5.0-9.0) Ur Specific [place] (1.005-1.030) Urine Protein (NEGATIVE) mg/dL Urine Glucose (UA) (NEGATIVE) mg/dL Urine Ketones (NEGATIVE) mg/dL Urine Occult Blood (NEGATIVE) Urine Nitrite (NEGATIVE) Urine Bilirubin (NEGATIVE) Urine Urobilinogen (0.2-1.0) E.U./dL Ur Leukocyte Esterase (NEGATIVE) Urine RBC /HPF Urine WBC /HPF Ur Epithelial Cells /LPF Urine Bacteria (NONE TO FEW) /HPF 03/05/19 03/05/19 03/05/19 Range/Units 16:00 16:00 18:40 WBC (4.0-10.2) K/uL RBC (4.33-5.41) M/uL Hgb (13.1-16.8) g/dL Hct (39.0-49.0) % MCV (84.0-98.0) fL MCH (28.2-33.3) pg MCHC (31.7-36.0) g/dL RDW (11.2-14.1) % Plt Count (150-350) K/uL Neut % (Auto) (45.0-80.0) % Lymph % (Auto) (10.0-50.0) % [place] % (Auto) (2.0-14.0) % Eos % (Auto) (0.0-5.0) % Baso % (Auto) (0.0-2.0) % Neut # (Auto) (1.40-7.00) K/uL Lymph # (Auto) (0.50-3.50) K/uL [place] # (Auto) (0.00-1.00) K/uL Eos # (Auto) (0.00-0.50) K/uL Baso # (Auto) (0.00-0.20) K/uL PT (9.5-12.0) SEC INR APTT (21.0-31.3) SEC D-Dimer, Quantitative (0-400) ng/mL Sodium 137 (136-145) mmol/L Potassium 4.2 (3.5-5.1) mmol/L Chloride 100 (98-107) mmol/L Carbon Dioxide 28.5 (21.0-32.0) mmol/L BUN 27 H (7-18) mg/dL Creatinine 1.14 (0.51-1.17) mg/dL Est Cr Clr Drug Dosing 63.30 mL/min Estimated GFR (MDRD) > 60 mL/min Glucose 113 H (74-106) mg/dL Hemoglobin A1c (4.3-5.7) % Lactic Acid 0.9 (0.4-2.0) mmol/L Uric Acid 4.3 (2.6-7.2) mg/dL Calcium 8.9 (8.5-10.1) mg/dL Magnesium 1.9 (1.8-2.4) mg/dL Total Bilirubin 0.6 (0.2-1.0) mg/dL AST 30 (15-37) U/L ALT 59 (12-78) U/L Alkaline Phosphatase 60 (46-116) IU/L Creatine Kinase 311 H (26-308) U/L Creatine Kinase Index 2.3 (0.0-2.5) % CK-MB (CK-2) 7.10 H* (0.00-3.60) ng/mL Troponin I 0.000 (0.000-0.056) ng/mL NT-Pro-B Natriuret Pep 61 (0-125) pg/mL Total Protein 6.8 (6.4-8.2) g/dL Albumin 3.7 (3.4-5.0) g/dL Triglycerides (30-150) mg/dL Cholesterol (100-200) mg/dL LDL Cholesterol, Calc (0-100) mg/dL HDL Cholesterol (40-60) mg/dL TSH, Ultra Sensitive 0.644 (0.358-3.740) mIU/mL Specimen Type Urincc Urine Color Yellow Urine Appearance Clear Urine pH 5.5 (5.0-9.0) Ur Specific [place] 1.015 (1.005-1.030) Urine Protein Negative (NEGATIVE) mg/dL Urine Glucose (UA) Negative (NEGATIVE) mg/dL Urine Ketones Negative (NEGATIVE) mg/dL Urine Occult Blood Negative (NEGATIVE) Urine Nitrite Negative (NEGATIVE) Urine Bilirubin Negative (NEGATIVE) Urine Urobilinogen 0.2 (0.2-1.0) E.U./dL Ur Leukocyte Esterase Negative (NEGATIVE) Urine RBC 0-5 /HPF Urine WBC 0-5 /HPF Ur Epithelial Cells Rare /LPF Urine Bacteria Rare (NONE TO FEW) /HPF 03/05/19 03/06/19 03/06/19 Range/Units 20:55 07:35 07:35 WBC 6.8 (4.0-10.2) K/uL RBC 4.72 (4.33-5.41) M/uL Hgb 14.9 (13.1-16.8) g/dL Hct 43.8 (39.0-49.0) % MCV 92.8 (84.0-98.0) fL MCH 31.6 (28.2-33.3) pg MCHC 34.0 (31.7-36.0) g/dL RDW 13.2 (11.2-14.1) % Plt Count 262 (150-350) K/uL Neut % (Auto) 67.8 (45.0-80.0) % Lymph % (Auto) 21.9 (10.0-50.0) % [place] % (Auto) 8.3 (2.0-14.0) % Eos % (Auto) 1.9 (0.0-5.0) % Baso % (Auto) 0.1 (0.0-2.0) % Neut # (Auto) 4.57 (1.40-7.00) K/uL Lymph # (Auto) 1.48 (0.50-3.50) K/uL [place] # (Auto) 0.56 (0.00-1.00) K/uL Eos # (Auto) 0.13 (0.00-0.50) K/uL Baso # (Auto) 0.01 (0.00-0.20) K/uL PT (9.5-12.0) SEC INR APTT (21.0-31.3) SEC D-Dimer, Quantitative (0-400) ng/mL Sodium 140 (136-145) mmol/L Potassium 4.1 (3.5-5.1) mmol/L Chloride 104 (98-107) mmol/L Carbon Dioxide 28.3 (21.0-32.0) mmol/L BUN 20 H (7-18) mg/dL Creatinine 1.08 (0.51-1.17) mg/dL Est Cr Clr Drug Dosing 66.82 mL/min Estimated GFR (MDRD) > 60 mL/min Glucose 98 (74-106) mg/dL Hemoglobin A1c (4.3-5.7) % Lactic Acid (0.4-2.0) mmol/L Uric Acid (2.6-7.2) mg/dL Calcium 8.8 (8.5-10.1) mg/dL Magnesium (1.8-2.4) mg/dL Total Bilirubin 1.0 (0.2-1.0) mg/dL AST 23 (15-37) U/L ALT 49 (12-78) U/L Alkaline Phosphatase 55 (46-116) IU/L Creatine Kinase 257 146 (26-308) U/L Creatine Kinase Index 1.8 2.3 (0.0-2.5) % CK-MB (CK-2) 4.70 H* 3.40 (0.00-3.60) ng/mL Troponin I 0.000 0.000 (0.000-0.056) ng/mL NT-Pro-B Natriuret Pep (0-125) pg/mL Total Protein 6.6 (6.4-8.2) g/dL Albumin 3.5 (3.4-5.0) g/dL Triglycerides 54 (30-150) mg/dL Cholesterol 120 (100-200) mg/dL LDL Cholesterol, Calc 51 (0-100) mg/dL HDL Cholesterol 58 (40-60) mg/dL TSH, Ultra Sensitive (0.358-3.740) mIU/mL Specimen Type Urine Color Urine Appearance Urine pH (5.0-9.0) Ur Specific [place] (1.005-1.030) Urine Protein (NEGATIVE) mg/dL Urine Glucose (UA) (NEGATIVE) mg/dL Urine Ketones (NEGATIVE) mg/dL Urine Occult Blood (NEGATIVE) Urine Nitrite (NEGATIVE) Urine Bilirubin (NEGATIVE) Urine Urobilinogen (0.2-1.0) E.U./dL Ur Leukocyte Esterase (NEGATIVE) Urine RBC /HPF Urine WBC /HPF Ur Epithelial Cells /LPF Urine Bacteria (NONE TO FEW) /HPF 03/06/19 Range/Units 07:35 WBC (4.0-10.2) K/uL RBC (4.33-5.41) M/uL Hgb (13.1-16.8) g/dL Hct (39.0-49.0) % MCV (84.0-98.0) fL MCH (28.2-33.3) pg MCHC (31.7-36.0) g/dL RDW (11.2-14.1) % Plt Count (150-350) K/uL Neut % (Auto) (45.0-80.0) % Lymph % (Auto) (10.0-50.0) % [place] % (Auto) (2.0-14.0) % Eos % (Auto) (0.0-5.0) % Baso % (Auto) (0.0-2.0) % Neut # (Auto) (1.40-7.00) K/uL Lymph # (Auto) (0.50-3.50) K/uL [place] # (Auto) (0.00-1.00) K/uL Eos # (Auto) (0.00-0.50) K/uL Baso # (Auto) (0.00-0.20) K/uL PT (9.5-12.0) SEC INR APTT (21.0-31.3) SEC D-Dimer, Quantitative (0-400) ng/mL Sodium (136-145) mmol/L Potassium (3.5-5.1) mmol/L Chloride (98-107) mmol/L Carbon Dioxide (21.0-32.0) mmol/L BUN (7-18) mg/dL Creatinine (0.51-1.17) mg/dL Est Cr Clr Drug Dosing mL/min Estimated GFR (MDRD) mL/min Glucose (74-106) mg/dL Hemoglobin A1c 6.6 H (4.3-5.7) % Lactic Acid (0.4-2.0) mmol/L Uric Acid (2.6-7.2) mg/dL Calcium (8.5-10.1) mg/dL Magnesium (1.8-2.4) mg/dL Total Bilirubin (0.2-1.0) mg/dL AST (15-37) U/L ALT (12-78) U/L Alkaline Phosphatase (46-116) IU/L Creatine Kinase (26-308) U/L Creatine Kinase Index (0.0-2.5) % CK-MB (CK-2) (0.00-3.60) ng/mL Troponin I (0.000-0.056) ng/mL NT-Pro-B Natriuret Pep (0-125) pg/mL Total Protein (6.4-8.2) g/dL Albumin (3.4-5.0) g/dL Triglycerides (30-150) mg/dL Cholesterol (100-200) mg/dL LDL Cholesterol, Calc (0-100) mg/dL HDL Cholesterol (40-60) mg/dL TSH, Ultra Sensitive (0.358-3.740) mIU/mL Specimen Type Urine Color Urine Appearance Urine pH (5.0-9.0) Ur Specific [place] (1.005-1.030) Urine Protein (NEGATIVE) mg/dL Urine Glucose (UA) (NEGATIVE) mg/dL Urine Ketones (NEGATIVE) mg/dL Urine Occult Blood (NEGATIVE) Urine Nitrite (NEGATIVE) Urine Bilirubin (NEGATIVE) Urine Urobilinogen (0.2-1.0) E.U./dL Ur Leukocyte Esterase (NEGATIVE) Urine RBC /HPF Urine WBC /HPF Ur Epithelial Cells /LPF Urine Bacteria (NONE TO FEW) /HPF Laboratory Tests 03/05/19 03/05/19 03/05/19 Range/Units 16:00 16:00 16:00 WBC 8.0 (4.0-10.2) K/uL RBC 4.52 (4.33-5.41) M/uL Hgb 14.1 (13.1-16.8) g/dL Hct 42.3 (39.0-49.0) % MCV 93.6 (84.0-98.0) fL MCH 31.2 (28.2-33.3) pg MCHC 33.3 (31.7-36.0) g/dL RDW 13.0 (11.2-14.1) % Plt Count 281 (150-350) K/uL Neut % (Auto) 65.6 (45.0-80.0) % Lymph % (Auto) 23.9 (10.0-50.0) % [place] % (Auto) 8.1 (2.0-14.0) % Eos % (Auto) 2.3 (0.0-5.0) % Baso % (Auto) 0.1 (0.0-2.0) % Neut # (Auto) 5.23 (1.40-7.00) K/uL Lymph # (Auto) 1.91 (0.50-3.50) K/uL [place] # (Auto) 0.65 (0.00-1.00) K/uL Eos # (Auto) 0.18 (0.00-0.50) K/uL Baso # (Auto) 0.01 (0.00-0.20) K/uL PT 10.0 (9.5-12.0) SEC INR 0.9 APTT 23.2 (21.0-31.3) SEC D-Dimer, Quantitative 116 (0-400) ng/mL Sodium (136-145) mmol/L Potassium (3.5-5.1) mmol/L Chloride (98-107) mmol/L Carbon Dioxide (21.0-32.0) mmol/L BUN (7-18) mg/dL Creatinine (0.51-1.17) mg/dL Est Cr Clr Drug Dosing mL/min Estimated GFR (MDRD) mL/min Glucose (74-106) mg/dL Hemoglobin A1c (4.3-5.7) % Lactic Acid (0.4-2.0) mmol/L Uric Acid (2.6-7.2) mg/dL Calcium (8.5-10.1) mg/dL Magnesium (1.8-2.4) mg/dL Total Bilirubin (0.2-1.0) mg/dL AST (15-37) U/L ALT (12-78) U/L Alkaline Phosphatase (46-116) IU/L Creatine Kinase (26-308) U/L Creatine Kinase Index (0.0-2.5) % CK-MB (CK-2) (0.00-3.60) ng/mL Troponin I (0.000-0.056) ng/mL NT-Pro-B Natriuret Pep (0-125) pg/mL Total Protein (6.4-8.2) g/dL Albumin (3.4-5.0) g/dL Triglycerides (30-150) mg/dL Cholesterol (100-200) mg/dL LDL Cholesterol, Calc (0-100) mg/dL HDL Cholesterol (40-60) mg/dL TSH, Ultra Sensitive (0.358-3.740) mIU/mL Specimen Type Urine Color Urine Appearance Urine pH (5.0-9.0) Ur Specific [place] (1.005-1.030) Urine Protein (NEGATIVE) mg/dL Urine Glucose (UA) (NEGATIVE) mg/dL Urine Ketones (NEGATIVE) mg/dL Urine Occult Blood (NEGATIVE) Urine Nitrite (NEGATIVE) Urine Bilirubin (NEGATIVE) Urine Urobilinogen (0.2-1.0) E.U./dL Ur Leukocyte Esterase (NEGATIVE) Urine RBC /HPF Urine WBC /HPF Ur Epithelial Cells /LPF Urine Bacteria (NONE TO FEW) /HPF 03/05/19 03/05/19 03/05/19 Range/Units 16:00 16:00 18:40 WBC (4.0-10.2) K/uL RBC (4.33-5.41) M/uL Hgb (13.1-16.8) g/dL Hct (39.0-49.0) % MCV (84.0-98.0) fL MCH (28.2-33.3) pg MCHC (31.7-36.0) g/dL RDW (11.2-14.1) % Plt Count (150-350) K/uL Neut % (Auto) (45.0-80.0) % Lymph % (Auto) (10.0-50.0) % [place] % (Auto) (2.0-14.0) % Eos % (Auto) (0.0-5.0) % Baso % (Auto) (0.0-2.0) % Neut # (Auto) (1.40-7.00) K/uL Lymph # (Auto) (0.50-3.50) K/uL [place] # (Auto) (0.00-1.00) K/uL Eos # (Auto) (0.00-0.50) K/uL Baso # (Auto) (0.00-0.20) K/uL PT (9.5-12.0) SEC INR APTT (21.0-31.3) SEC D-Dimer, Quantitative (0-400) ng/mL Sodium 137 (136-145) mmol/L Potassium 4.2 (3.5-5.1) mmol/L Chloride 100 (98-107) mmol/L Carbon Dioxide 28.5 (21.0-32.0) mmol/L BUN 27 H (7-18) mg/dL Creatinine 1.14 (0.51-1.17) mg/dL Est Cr Clr Drug Dosing 63.30 mL/min Estimated GFR (MDRD) > 60 mL/min Glucose 113 H (74-106) mg/dL Hemoglobin A1c (4.3-5.7) % Lactic Acid 0.9 (0.4-2.0) mmol/L Uric Acid 4.3 (2.6-7.2) mg/dL Calcium 8.9 (8.5-10.1) mg/dL Magnesium 1.9 (1.8-2.4) mg/dL Total Bilirubin 0.6 (0.2-1.0) mg/dL AST 30 (15-37) U/L ALT 59 (12-78) U/L Alkaline Phosphatase 60 (46-116) IU/L Creatine Kinase 311 H (26-308) U/L Creatine Kinase Index 2.3 (0.0-2.5) % CK-MB (CK-2) 7.10 H* (0.00-3.60) ng/mL Troponin I 0.000 (0.000-0.056) ng/mL NT-Pro-B Natriuret Pep 61 (0-125) pg/mL Total Protein 6.8 (6.4-8.2) g/dL Albumin 3.7 (3.4-5.0) g/dL Triglycerides (30-150) mg/dL Cholesterol (100-200) mg/dL LDL Cholesterol, Calc (0-100) mg/dL HDL Cholesterol (40-60) mg/dL TSH, Ultra Sensitive 0.644 (0.358-3.740) mIU/mL Specimen Type Urincc Urine Color Yellow Urine Appearance Clear Urine pH 5.5 (5.0-9.0) Ur Specific [place] 1.015 (1.005-1.030) Urine Protein Negative (NEGATIVE) mg/dL Urine Glucose (UA) Negative (NEGATIVE) mg/dL Urine Ketones Negative (NEGATIVE) mg/dL Urine Occult Blood Negative (NEGATIVE) Urine Nitrite Negative (NEGATIVE) Urine Bilirubin Negative (NEGATIVE) Urine Urobilinogen 0.2 (0.2-1.0) E.U./dL Ur Leukocyte Esterase Negative (NEGATIVE) Urine RBC 0-5 /HPF Urine WBC 0-5 /HPF Ur Epithelial Cells Rare /LPF Urine Bacteria Rare (NONE TO FEW) /HPF 03/05/19 03/06/19 03/06/19 Range/Units 20:55 07:35 07:35 WBC 6.8 (4.0-10.2) K/uL RBC 4.72 (4.33-5.41) M/uL Hgb 14.9 (13.1-16.8) g/dL Hct 43.8 (39.0-49.0) % MCV 92.8 (84.0-98.0) fL MCH 31.6 (28.2-33.3) pg MCHC 34.0 (31.7-36.0) g/dL RDW 13.2 (11.2-14.1) % Plt Count 262 (150-350) K/uL Neut % (Auto) 67.8 (45.0-80.0) % Lymph % (Auto) 21.9 (10.0-50.0) % [place] % (Auto) 8.3 (2.0-14.0) % Eos % (Auto) 1.9 (0.0-5.0) % Baso % (Auto) 0.1 (0.0-2.0) % Neut # (Auto) 4.57 (1.40-7.00) K/uL Lymph # (Auto) 1.48 (0.50-3.50) K/uL [place] # (Auto) 0.56 (0.00-1.00) K/uL Eos # (Auto) 0.13 (0.00-0.50) K/uL Baso # (Auto) 0.01 (0.00-0.20) K/uL PT (9.5-12.0) SEC INR APTT (21.0-31.3) SEC D-Dimer, Quantitative (0-400) ng/mL Sodium 140 (136-145) mmol/L Potassium 4.1 (3.5-5.1) mmol/L Chloride 104 (98-107) mmol/L Carbon Dioxide 28.3 (21.0-32.0) mmol/L BUN 20 H (7-18) mg/dL Creatinine 1.08 (0.51-1.17) mg/dL Est Cr Clr Drug Dosing 66.82 mL/min Estimated GFR (MDRD) > 60 mL/min Glucose 98 (74-106) mg/dL Hemoglobin A1c (4.3-5.7) % Lactic Acid (0.4-2.0) mmol/L Uric Acid (2.6-7.2) mg/dL Calcium 8.8 (8.5-10.1) mg/dL Magnesium (1.8-2.4) mg/dL Total Bilirubin 1.0 (0.2-1.0) mg/dL AST 23 (15-37) U/L ALT 49 (12-78) U/L Alkaline Phosphatase 55 (46-116) IU/L Creatine Kinase 257 146 (26-308) U/L Creatine Kinase Index 1.8 2.3 (0.0-2.5) % CK-MB (CK-2) 4.70 H* 3.40 (0.00-3.60) ng/mL Troponin I 0.000 0.000 (0.000-0.056) ng/mL NT-Pro-B Natriuret Pep (0-125) pg/mL Total Protein 6.6 (6.4-8.2) g/dL Albumin 3.5 (3.4-5.0) g/dL Triglycerides 54 (30-150) mg/dL Cholesterol 120 (100-200) mg/dL LDL Cholesterol, Calc 51 (0-100) mg/dL HDL Cholesterol 58 (40-60) mg/dL TSH, Ultra Sensitive (0.358-3.740) mIU/mL Specimen Type Urine Color Urine Appearance Urine pH (5.0-9.0) Ur Specific [place] (1.005-1.030) Urine Protein (NEGATIVE) mg/dL Urine Glucose (UA) (NEGATIVE) mg/dL Urine Ketones (NEGATIVE) mg/dL Urine Occult Blood (NEGATIVE) Urine Nitrite (NEGATIVE) Urine Bilirubin (NEGATIVE) Urine Urobilinogen (0.2-1.0) E.U./dL Ur Leukocyte Esterase (NEGATIVE) Urine RBC /HPF Urine WBC /HPF Ur Epithelial Cells /LPF Urine Bacteria (NONE TO FEW) /HPF 03/06/19 Range/Units 07:35 WBC (4.0-10.2) K/uL RBC (4.33-5.41) M/uL Hgb (13.1-16.8) g/dL Hct (39.0-49.0) % MCV (84.0-98.0) fL MCH (28.2-33.3) pg MCHC (31.7-36.0) g/dL RDW (11.2-14.1) % Plt Count (150-350) K/uL Neut % (Auto) (45.0-80.0) % Lymph % (Auto) (10.0-50.0) % [place] % (Auto) (2.0-14.0) % Eos % (Auto) (0.0-5.0) % Baso % (Auto) (0.0-2.0) % Neut # (Auto) (1.40-7.00) K/uL Lymph # (Auto) (0.50-3.50) K/uL [place] # (Auto) (0.00-1.00) K/uL Eos # (Auto) (0.00-0.50) K/uL Baso # (Auto) (0.00-0.20) K/uL PT (9.5-12.0) SEC INR APTT (21.0-31.3) SEC D-Dimer, Quantitative (0-400) ng/mL Sodium (136-145) mmol/L Potassium (3.5-5.1) mmol/L Chloride (98-107) mmol/L Carbon Dioxide (21.0-32.0) mmol/L BUN (7-18) mg/dL Creatinine (0.51-1.17) mg/dL Est Cr Clr Drug Dosing mL/min Estimated GFR (MDRD) mL/min Glucose (74-106) mg/dL Hemoglobin A1c 6.6 H (4.3-5.7) % Lactic Acid (0.4-2.0) mmol/L Uric Acid (2.6-7.2) mg/dL Calcium (8.5-10.1) mg/dL Magnesium (1.8-2.4) mg/dL Total Bilirubin (0.2-1.0) mg/dL AST (15-37) U/L ALT (12-78) U/L Alkaline Phosphatase (46-116) IU/L Creatine Kinase (26-308) U/L Creatine Kinase Index (0.0-2.5) % CK-MB (CK-2) (0.00-3.60) ng/mL Troponin I (0.000-0.056) ng/mL NT-Pro-B Natriuret Pep (0-125) pg/mL Total Protein (6.4-8.2) g/dL Albumin (3.4-5.0) g/dL Triglycerides (30-150) mg/dL Cholesterol (100-200) mg/dL LDL Cholesterol, Calc (0-100) mg/dL HDL Cholesterol (40-60) mg/dL TSH, Ultra Sensitive (0.358-3.740) mIU/mL Specimen Type Urine Color Urine Appearance Urine pH (5.0-9.0) Ur Specific [place] (1.005-1.030) Urine Protein (NEGATIVE) mg/dL Urine Glucose (UA) (NEGATIVE) mg/dL Urine Ketones (NEGATIVE) mg/dL Urine Occult Blood (NEGATIVE) Urine Nitrite (NEGATIVE) Urine Bilirubin (NEGATIVE) Urine Urobilinogen (0.2-1.0) E.U./dL Ur Leukocyte Esterase (NEGATIVE) Urine RBC /HPF Urine WBC /HPF Ur Epithelial Cells /LPF Urine Bacteria (NONE TO FEW) /HPF ELISSA Results - Last 24 hrs: Microbiology 03/05/19 07:20 Stool Occult Blood (ELISSA) - Final Stool / Feces NEGATIVE OCCULT BLOOD REFERENCE RANGE: NEGATIVE 03/05/19 18:40 Urine Culture - Preliminary Urine, Clean Catch No Growth Stool for H. pylori antigen still pending Med Orders - Current: Current Medications Acetaminophen (Tylenol) 650 mg PO Q4H PRN PRN Reason: Pain Aspirin (Halfprin) 81 mg PO DAILY [facility] Last Admin: 03/06/19 08:48 Dose: 81 mg Atorvastatin Calcium (Lipitor) 40 mg PO DAILY [facility] Last Admin: 03/06/19 08:47 Dose: 40 mg Clopidogrel Bisulfate (Plavix) 75 mg PO DAILY [facility] Last Admin: 03/06/19 08:47 Dose: 75 mg Lisinopril (Prinivil) 10 mg PO QAM [facility] Last Admin: 03/06/19 08:46 Dose: 10 mg Metoprolol Succinate (Toprol Xl) 50 mg PO BID [facility] Last Admin: 03/06/19 09:27 Dose: 50 mg Nitroglycerin (Nitrostat) 0.4 mg SL ONETIME STA Stop: 03/06/19 15:45 Last Admin: 03/05/19 16:05 Dose: 0.4 mg Sodium Chloride (Saline Flush) 10 ml FLUSH ASDIRECTED PRN PRN Reason: Keep Vein Open Last Admin: 03/05/19 16:08 Dose: 10 ml Sodium Chloride (Saline Flush) 10 ml FLUSH Q12HR PRN PRN Reason: Keep Vein Open Temazepam (Restoril) 15 mg PO BEDTIME PRN PRN Reason: Insomnia Discontinued Medications Aspirin (Aspirin) 324 mg CHEW ONETIME ONE Stop: 03/05/19 15:43 Last Admin: 03/05/19 16:03 Dose: 324 mg Famotidine (Pepcid) 40 mg IVPUSH ONETIME ONE Stop: 03/05/19 15:43 Last Admin: 03/05/19 16:10 Dose: 40 mg Ticagrelor (Brilinta) 180 mg PO ONETIME ONE Stop: 03/05/19 15:43 Last Admin: 03/05/19 16:04 Dose: 180 mg - Exam Quality Assessment: Reports: DVT Prophylaxis. Denies: Supplemental Oxygen, Central Line/PICC, Urine Catheter, Skin Breakdown, Restraints General: Reports: Alert, Oriented, Cooperative, No Acute Distress HEENT: Reports: Pupils Equal, Pupils Reactive, EOMI, Mucous Membr. Moist/[place]: Reports: Supple, Trachea Midline, No JVD, No Thyromegaly, Carotid Bruit ( Mild bilateral carotid bruits). Denies: Lymphadenopathy Lungs: Reports: Clear to Auscultation, Normal Respiratory Effort. Denies: Rub Cardiovascular: Reports: Regular Rate, Regular Rhythm, No Murmurs. Denies: Gallops, Rubs GI/Abdominal Exam: Normal Bowel Sounds, Soft, Non-Tender, No Organomegaly, No Distention, No Abnormal Bruit, No Mass, Other (Obese). No: Guarding (Male) Exam: Deferred Rectal (Males) Exam: Deferred Back Exam: Reports: Normal Inspection, Full Range of Motion. Denies: CVA Tenderness (L), CVA Tenderness (R), Muscle Spasm Extremities: Normal Inspection, Normal Range of Motion, Non-Tender, No Pedal Edema, Normal Capillary Refill. No: Jatin's Sign Skin: Reports: Warm, Dry, Intact Neurological: Reports: No New Focal Deficit Psy/Mental Status: Reports: Alert, Normal Affect, Normal Mood. Denies: Agitated , Hallucinations, Withdrawal Symptoms EKG INTERPRETATION EKG Date: 03/06/19 Time: 07:14 Rhythm: NSR Rate (Beats/Min): 68 [place]: Normal P-Wave: Enlarged (Diffuse biphasic P wavesmild) QRS: Wide (0.10 seconds representing repolarization changes) ST-T: Normal QT: Normal NM/PQ Interval: 0.14 seconds with no delta waves noted Comparison: No Change (Last EKG on 03/05/19) EKG Interpretation Comments: No acute ischemic changes
[2019-03-06 13:04] VITALS: BP 124/65
== END 2019-03-06 13:35 | disposition home or self-care (01) ==
LOC: LL.ED 15:35 → LL.MS 18:20 → UNDOADMOB 18:20
PROVIDERS: ADMIT Family Medicine; ATTEND Family Medicine
DX: I25.110 Atherosclerotic heart disease of native coronary artery with unstable angina pectoris (principal); I11.0 Hypertensive heart disease with heart failure; I50.9 Heart failure, unspecified; E78.2 Mixed hyperlipidemia; J43.1 Panlobular emphysema; K21.9 Gastro-esophageal reflux disease without esophagitis; M15.0 Primary generalized (osteo)arthritis; R73.9 Hyperglycemia, unspecified; R63.4 Abnormal weight loss; F17.220 Nicotine dependence, chewing tobacco, uncomplicated; Z79.83 Long term (current) use of bisphosphonates; Z79.02 Long term (current) use of antithrombotics/antiplatelets; Z79.899 Other long term (current) drug therapy; Z88.5 Allergy status to narcotic agent
CPT/HCPCS: 36415; 71045; 80053; 80061; 81001; 82272; 82550; 82553; 83036; 83605; 83735; 83880; 84443; 84484; 84550; 85025; 85379; 85610; 85730; 87086; 87338; 93005; 96374; 99285-25; A9270-GY; G0378; J3490

== ENCOUNTER → 2019-09-01 | Outpatient (CLI) | payer MEDICARE, OTHER | LOC: LL.CLIN 09:25 | PROVIDERS: ATTEND Nurse Practitioner | DX: Z23 Encounter for immunization (principal) | CPT/HCPCS: 90662; 90732; G0008; G0009; G0010 ==

== ENCOUNTER 2021-07-19 11:50 | Emergency (ER) | payer MEDICARE, OTHER ==
[2021-07-19 11:59] VITALS: BP 150/83; PULSE 71
[2021-07-19] MEDS ORDERED: Diphtheria,Pertussis(Acell),Tetanus Vaccine 0.5 ML Syringe IM ONE (12:04)
[2021-07-19] MEDS ORDERED: Bacitracin/Neomycin/Polymyxin B Oint 0.9 GM U/D Packet TOP ONE (12:16)
--- NOTE | 2021-07-19 12:17 | EDM.PDOC ---
ED HPI GENERAL MEDICAL PROBLEM - General Chief Complaint: Laceration Stated Complaint: Laceration Time Seen by Provider: 07/19/21 12:03 Source of Information: Reports: Patient - History of Present Illness INITIAL COMMENTS - FREE TEXT/NARRATIVE: Vu is a 75 y/o male who presents to the ER with a laceration to his right hand. He cut his hand on a piece of steel that he was unloading at work. No other injuries. Unsure of most recent tetanus update. - Related Data Allergies Allergy/AdvReac Type Severity Reaction Status Date / Time hydromorphone [From Dilaudid] AdvReac Other Verified 07/19/21 11:58 Home Meds: Home Meds Omeprazole [Prilosec] 40 mg PO DAILY 06/02/15 [History] Aspirin [Halfprin] 81 mg PO BEDTIME 08/13/18 [History] Nitroglycerin [Nitrostat] 0.4 mg SL ASDIRECTED PRN 08/13/18 [History] atorvaSTATin Calcium [Atorvastatin Calcium] 40 mg PO DAILY 08/13/18 [History] Lisinopril 10 mg PO QAM 03/05/19 [History] Ascorbic Acid [Vitamin C] 1,000 mg PO DAILY 06/24/20 [History] Magnesium Oxide [Mag-Oxide Magnesium] 400 mg PO BEDTIME 06/24/20 [History] Metoprolol Succinate [Toprol XL] 50 mg PO BEDTIME 06/24/20 [History] Past Medical History HEENT History: Reports: Allergic Rhinitis, Hard of Hearing, Impaired Vision Other HEENT History: Grain dust allergic rhinitis, patient wears glasses. Presbycusis with no current hearing aide therapy. Cardiovascular History: Reports: Arrhythmia, Blood Clots/VTE/DVT, CAD, Heart Failure, High Cholesterol, Hypertension, PTCA, PVD, Stents, Other (See Below) Other Cardiovascular History: Significant 99% stenosis of the right coronary artery with status post PTCA/stent as below and persistent 50% LAD stenosis by heart catheterization on 07/11/17. 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 Complete right bundle branch block, PACs, and PVCs. 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 Negative pylori gastric biopsies 2018 as below. Sigmoid diverticulosis without history of diverticulitis. Genitourinary History: Reports: BPH, Chronic Renal Insuffiency, Renal Calculus, Other (See Below) Other Genitourinary History: Right-sided urolithiasis 2 in 2001 and 2002 with lithotripsy required as below Musculoskeletal History: Reports: Arthritis, Back Pain, Chronic, Fracture, Neck Pain, Chronic, Osteoarthritis, Other (See Below) Other Musculoskeletal History: Closed reduction of finger fracture on 03/10/15. 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 Neurological History: Reports: None Psychiatric History: Reports: None Endocrine/Metabolic History: Reports: Diabetes, Type II, Other (See Below) Other Endocrine/Metabolic History: Mild hyperglycemia Hematologic History: Reports: Other (See Below) Other Hematologic History: Polycythemia Immunologic History: Reports: None Oncologic (Cancer) History: Reports: None Dermatologic History: Reports: None - Infectious Disease History Infectious Disease History: Reports: Chicken Pox, Measles - Past Surgical History Head Surgeries/Procedures: Reports: None HEENT Surgical History: Reports: None, Adenoidectomy, Oral Surgery, Tonsillectomy, Other (See Below) Other HEENT Surgeries/Procedures: Tonsillectomy at age 12, multiple teeth extractions with partial upper dentures currently Cardiovascular Surgical History: Reports: None, Coronary Artery Stent, Percutaneous Transluminal Angioplasty, Vascular Surgery Other Cardiovascular Surgeries/Procedures: Angiograms Respiratory Surgical History: Reports: None GI Surgical History: Reports: Colonoscopy, EGD, Polypectomy, Other (See Below) Other GI Surgeries/Procedures: EGD on 08/13/18, 06/03/15, 03/05/15, and 05/08/13 with previous history of excision of multiple benign colonic polyps. Last colonoscopy on 06/03/15 with previous evaluations on 05/09/12 and 03/05/12. Male Surgical History: Reports: Circumcision, Renal Calculus, Ureteral Stent, Other (See Below) Other Male Surgeries/Procedures: History of right-sided lithotripsy and subsequent ureteral stent placement in 2001 and 2002, circumcision as an Endocrine Surgical History: Reports: None Neurological Surgical History: Reports: None Musculoskeletal Surgical History: Reports: None Oncologic Surgical History: Reports: None Dermatological Surgical History: Reports: None - Past Imaging History Past Imaging History: Reports: Angiography (Heart catheterizations on 07/11/17, 02/26/13, and 02/21/12.), Cardiac Echo (06/10/17 with ejection fraction of 5060 percent and findings as above.), Carotid US (07/24/18 with findings as above), CAT Scan (CT of the abdomen and pelvis on 03/26/12.), Stress Testing (Low level cardiac stress test on 07/27/17 with previous Cardiolite stress test on 06/07/17 and Normal exercise cardiac stress test in 2007), Upper GI X-Ray/Series (05/08/13) Social & Family History - Family History HEENT: Reports: Macular Degeneration, Other (See Below) Other HEENT Family History: Brother with macular degeneration Cardiac: Reports: Bypass, CAD, CO, Other (See Below) Other Cardiac Family History: Brothers 2 with history of MIs with 1 brother having a triple CABG in his 50s, Respiratory: Reports: COPD, Other (See Below) Other Respiratory Family Hisory: Brother with history of COPD with no history of tobacco use GI: Reports: None : Reports: None OBGYN: Reports: None Musculoskeletal: Reports: Arthritis, Osteoarthritis, Other (See Below) Other Musculoskeletal Family History: Osteoarthritis in mother Neurological: Reports: CVA, Other (See Below) Other Neurological Family History: Brother with CVA in his 80s Psychiatric: Reports: None Endocrine/Metabolic: Reports: None Hematologic: Reports: None Immunologic: Reports: None Dermatologic: Reports: None Oncologic: Reports: Metastatic, Other (See Below) Other Oncologic Family History: Multiple maternal uncles and aunts from unknown type of cancers in their 70s and 80s, mother with unknown type of fatal metastatic abdominal cancer in her 70s - Caffeine Use Caffeine Use: Reports: Coffee, Soda Other Caffeine Use: 3-4 cans/day - Living Situation & Occupation Living situation: Reports: (2000, 2 children both girls), with Family (With ) 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) ED ROS GENERAL - Review of Systems Review Of Systems: See Below Constitutional: Reports: No Symptoms HEENT: Reports: No Symptoms Respiratory: Reports: No Symptoms Cardiovascular: Reports: No Symptoms Endocrine: Reports: No Symptoms GI/Abdominal: Reports: No Symptoms : Reports: No Symptoms Musculoskeletal: Reports: No Symptoms Skin: Reports: Wound (right hand) Neurological: Reports: No Symptoms Psychiatric: Reports: No Symptoms Hematologic/Lymphatic: Reports: No Symptoms Immunologic: Reports: No Symptoms ED EXAM, SKIN/RASH Exam: See Below General Appearance: Alert, WD/WN, No Apparent Distress (Elderly male) Ears: Hearing Grossly Normal Throat/Mouth: Normal Voice Head: Atraumatic, Normocephalic Respiratory/Chest: No Respiratory Distress GI/Abdominal: Soft (Male) Exam: Deferred Rectal (Males) Exam: Deferred Extremities: Normal Inspection, Normal Range of Motion, Other Neurological: Alert, Oriented, CN II-XII Intact, Normal Reflexes, No Motor/Sensory Deficits Psychiatric: Normal Affect Skin: Warm, Dry, Intact, Normal Color Location, Skin: Palms (right plam region at base of thumb note 3.5 cm laceration with clean edge, mildly bleeding, no FB observed) Course - Vital Signs Text/Narrative:: 1203 The patient was seen by the STUDIO OPERATIONS MANAGER. The laceration was repaired. Procedure Note Laceration Repair Following verbal consent of the patient, risks, benefits, and alternatives were reviewed. The wound on the right hand was prepped with Betadine. Lidocaine 1% was used for local anesthesia. Four interrupted sutures of 4-0 Vicryl used for wound closure. Dressing was applied. Wound care instructions were reviewed. The patient tolerated the procedure well. Last Tetanus was not verifiable. Tdap was given today. EBL=minimal Discharge instructions were given and the patient left the ER in stable condition. Last Recorded V/S: Last Vital Signs Temp 36.6 C 07/19/21 11:58 Pulse 71 07/19/21 11:58 Resp 14 07/19/21 11:58 BP 150/83 H 07/19/21 11:58 Pulse Ox 97 07/19/21 11:58 - Orders/Labs/Meds Orders: Active Orders 24 hr Category Date Time Status Vaccine to be Administered/Admin Charge [RC] ASDIRECTED Care 07/19/21 12:04 Ordered Diphth,Pertuss(Acell),Tet Vac [Boostrix] Med 07/19/21 12:04 Once 0.5 ml IM .ONCE ONE Meds: Medications Discontinued Medications Generic Name Dose Route Start Last Admin Trade Name Aleyda PRN Reason Stop Dose Admin Lidocaine HCl 5 ml 07/19/21 12:03 Lidocaine 1% 5 Ml Sdv INJECT 07/19/21 12:04 ONETIME ONE Departure - Departure Time of Disposition: 12:20 Disposition: Refer to Observation Clinical Impression: Work related injury Hand laceration Qualifiers: Encounter type: initial encounter Foreign body presence: without foreign body Laterality: right Qualified Code(s): S61.411A - Laceration without foreign body of right hand, initial encounter - Discharge Information Instructions: Laceration Care, Adult Referrals: Camille Odonnell, [facility] [Primary Care Provider] - Additional Instructions: -Ibuprofen 200mg 3 tablets oral every 6 hours as needed for pain -Acetaminophen 325mg 2-3 tablets oral every 4-6 hours as needed for pain -Keep dressing to wound dry and intact for 24 hours, then you may wash the wound daily with soap and water. -Watch for signs of infection and seek care at the clinic or ER if needed -The sutures that were placed today will dissolve over the next 2-3 weeks, so you do not need to return to the clinic for removal. Allow them to dissolve and and do note attempt to pick or cut them out for at least 2 weeks. -Your Tetanus was not updated at today's visit. Sepsis Event Note (ED) - Evaluation Sepsis Screening Result: No Definite Risk - Focused Exam Vital Signs: Vital Signs Temp Pulse Resp BP Pulse Ox 07/19/21 11:58 36.6 C 71 14 150/83 H 97 - Problem List & Annotations (1) Hand laceration SNOMED Code(s): 785170266 Code(s): S61.419A - LACERATION WITHOUT FOREIGN BODY OF UNSP HAND, INIT ENCNTR Status: Acute Current Visit: Yes Annotation/Comment:: See Procedure note- Simple Laceration Repair. Tdap updated today. Qualifiers: Encounter type: initial encounter Foreign body presence: without foreign body Laterality: right Qualified Code(s): S61.411A - Laceration without foreign body of right hand, initial encounter (2) Work related injury SNOMED Code(s): 27995648 Code(s): Y99.0 - CIVILIAN ACTIVITY DONE FOR INCOME OR PAY Status: Acute Current Visit: Yes Annotation/Comment:: Work Comp form completed. - Problem List Review Problem List Initiated/Reviewed/Updated: Yes - My Orders Last 24 Hours: My Active Orders 07/19/21 12:04 Vaccine to be Administered/Admin Charge [RC] ASDIRECTED Diphth,Pertuss(Acell),Tet Vac [Boostrix] 0.5 ml IM .ONCE ONE - Assessment/Plan Last 24 Hours: My Active Orders 07/19/21 12:04 Vaccine to be Administered/Admin Charge [RC] ASDIRECTED Diphth,Pertuss(Acell),Tet Vac [Boostrix] 0.5 ml IM .ONCE ONE Plan: See above
== END 2021-07-19 12:25 | disposition home or self-care (01) ==
LOC: LL.ED 11:50
DX: S61.411A Laceration without foreign body of right hand, initial encounter (principal); I25.10 Atherosclerotic heart disease of native coronary artery without angina pectoris; E11.22 Type 2 diabetes mellitus with diabetic chronic kidney disease; E78.00 Pure hypercholesterolemia, unspecified; I13.0 Hypertensive heart and chronic kidney disease with heart failure and stage 1 through stage 4 chronic kidney disease, or unspecified chronic kidney disease; I50.9 Heart failure, unspecified; N18.9 Chronic kidney disease, unspecified; M19.90 Unspecified osteoarthritis, unspecified site; Z95.5 Presence of coronary angioplasty implant and graft; Z88.5 Allergy status to narcotic agent; Z79.82 Long term (current) use of aspirin; Z79.899 Other long term (current) drug therapy; Z23 Encounter for immunization; W26.8XXA Contact with other sharp object(s), not elsewhere classified, initial encounter
CPT/HCPCS: 12002; 90471; 90715; 99282-25; 99283

== ENCOUNTER 2022-10-07 09:40 | Emergency (ER) | payer MEDICARE, OTHER ==
[2022-10-07 09:45] VITALS: BP 159/70
[2022-10-07 10:48] LABS: ANION GAP 4.9 meq/L (7-15)
[2022-10-07 11:05] LABS: CORONAVIRUS COVID-19 NAA NEGATIVE (NEGATIVE); RESPIRATORY SYNCYTIAL VIR NAA NEGATIVE (NEGATIVE)
[2022-10-07] MEDS: Acetaminophen 325 MG Tab PO ONE (11:08)
[2022-10-07] MEDS: Benzonatate 100 MG Cap PO ONE (11:57)
[2022-10-07] MEDS: methylPREDNISolone Sodium Succinate 125 MG/2 ML SDV IM ONE (11:58)
[2022-10-07] MEDS: methylPREDNISolone Sodium Succinate 125 MG/2 ML SDV IVPUSH ONE (11:59)
[2022-10-07] MEDS: Albuterol/Ipratropium 3.0-0.5 MG/3 ML Neb Soln NEB ONE (12:01)
[2022-10-07 12:37] VITALS: PULSE 70
== END 2022-10-07 13:15 | disposition home or self-care (01) ==
LOC: LL.ED 09:40
DX: J10.1 Influenza due to other identified influenza virus with other respiratory manifestations (principal); I11.0 Hypertensive heart disease with heart failure; I50.9 Heart failure, unspecified; I25.10 Atherosclerotic heart disease of native coronary artery without angina pectoris; E78.00 Pure hypercholesterolemia, unspecified; E11.9 Type 2 diabetes mellitus without complications; Z88.6 Allergy status to analgesic agent; Z79.899 Other long term (current) drug therapy; Z79.82 Long term (current) use of aspirin; Z20.822 Contact with and (suspected) exposure to COVID-19
CPT/HCPCS: 0241U; 36415; 71046; 80053; 85025; 94640; 96372; 99283; A9270-GY; J2930; J7620-GY

== ENCOUNTER 2022-10-09 19:09 | Emergency (ER) | payer MEDICARE, OTHER ==
[2022-10-09] MEDS ORDERED: Sodium Chloride 0.9% 10 ML Syringe FLUSH PRN (19:17)
[2022-10-09] MEDS ORDERED: methylPREDNISolone Sodium Succinate 40 MG/1 ML SDV IVPUSH ONE (19:17)
[2022-10-09] MEDS ORDERED: Albuterol/Ipratropium 3.0-0.5 MG/3 ML Neb Soln ONE (19:35)
[2022-10-09 19:44] LABS: ANION GAP 8.1 meq/L (7-15); CHLORIDE,CL 107 mmol/L (98-107); ESTIMATED GFR 61 mL/min (>=60); SODIUM,NA 144 mmol/L (136-145)
[2022-10-09 22:07] VITALS: BP 127/85; PULSE 77
== END 2022-10-09 20:10 | disposition home or self-care (01) ==
LOC: LL.ED 19:09
DX: J11.1 Influenza due to unidentified influenza virus with other respiratory manifestations (principal); I11.0 Hypertensive heart disease with heart failure; I50.9 Heart failure, unspecified; I25.10 Atherosclerotic heart disease of native coronary artery without angina pectoris; K21.9 Gastro-esophageal reflux disease without esophagitis; E11.9 Type 2 diabetes mellitus without complications; E78.00 Pure hypercholesterolemia, unspecified; Z88.6 Allergy status to analgesic agent; Z79.899 Other long term (current) drug therapy; Z79.82 Long term (current) use of aspirin
CPT/HCPCS: 36415; 80053; 85025; 96374; 99284; 99284-25; J2920; J7620-GY

== ENCOUNTER 2023-02-27 04:34 | Emergency (ER) | payer MEDICARE, OTHER ==
[2023-02-27 05:03] VITALS: BP 165/87; PULSE 77
[2023-02-27 05:16] LABS: BASOPHILS ABSOLUTE AUTO 0.02 K/uL (0.00-0.20); BASOPHILS PERCENT AUTO 0.2 % (0.0-2.0); EOSINOPHILS ABSOLUTE AUTO 0.25 K/uL (0.00-0.50); EOSINOPHILS PERCENT AUTO 2.5 % (0.0-5.0); HEMATOCRIT 42.7 % (39.0-49.0); HEMOGLOBIN 14.1 g/dL (13.1-16.8); LYMPHOCYTES ABSOLUTE AUTO 1.35 K/uL (0.50-3.50); LYMPHOCYTES PERCENT AUTO 13.3 % (10.0-50.0); MEAN CORPUSCULAR HEMOGLOBIN 30.7 pg (28.2-33.3); MEAN CORPUSCULAR VOLUME 92.8 fL (84.0-98.0); MONOCYTES ABSOLUTE AUTO 0.69 K/uL (0.00-1.00); MONOCYTES PERCENT AUTO 6.8 % (2.0-14.0); NEUTROPHILS ABSOLUTE AUTO 7.85 K/uL (1.40-7.00); NEUTROPHILS PERCENT AUTO 77.2 % (45.0-80.0); PLATELET COUNT,PLT 247 K/uL (150-350); RED CELL DISTRIBUTION WIDTH 12.5 % (11.2-14.1); WHITE BLOOD CELL COUNT,WBC 10.2 K/uL (4.0-10.2)
[2023-02-27 05:44] LABS: ALANINE AMINOTRANSFERASE,ALT 23 U/L (12-78); ALBUMIN 3.3 g/dL (3.4-5.0); ALKALINE PHOSPHATASE 92 IU/L (46-116); ANION GAP 6.4 meq/L (7-15); ASPARTATE AMNIOTRANSFERASE,AST 18 U/L (15-37); BLOOD UREA NITROGEN,BUN 16 mg/dL (7-18); C-REACTIVE PROTEIN 1.8 mg/dL (<=0.9); CARBON DIOXIDE,CO2 28.6 mmol/L (21.0-32.0); CHLORIDE,CL 105 mmol/L (98-107); CREATININE 1.04 mg/dL (0.51-1.17); GLUCOSE RANDOM 140 mg/dL (70-99); POTASSIUM,K 3.7 mmol/L (3.5-5.1); PROTEIN TOTAL,TP 6.9 g/dL (6.4-8.2); SODIUM,NA 140 mmol/L (136-145)
[2023-02-27 05:50] LABS: ESTIMATED GFR 75 mL/min (>=60)
[2023-02-27] MEDS ORDERED: Amoxicillin/Clavulanate K 875-125 MG Tab ONE (06:09)
[2023-02-27] MEDS: Amoxicillin/Clavulanate K 875-125 MG Tab PO ONE (06:31)
== END 2023-02-27 06:35 | disposition home or self-care (01) ==
LOC: LL.ED 04:34
DX: J01.80 Other acute sinusitis (principal); B96.89 Other specified bacterial agents as the cause of diseases classified elsewhere; F17.290 Nicotine dependence, other tobacco product, uncomplicated; I11.0 Hypertensive heart disease with heart failure; I50.9 Heart failure, unspecified; I25.10 Atherosclerotic heart disease of native coronary artery without angina pectoris; E78.00 Pure hypercholesterolemia, unspecified; M19.90 Unspecified osteoarthritis, unspecified site; K21.9 Gastro-esophageal reflux disease without esophagitis; E11.9 Type 2 diabetes mellitus without complications; Z95.5 Presence of coronary angioplasty implant and graft; Z79.82 Long term (current) use of aspirin; Z79.899 Other long term (current) drug therapy; Z88.8 Allergy status to other drugs, medicaments and biological substances
CPT/HCPCS: 36415; 80053; 85025; 86140; 99283; A9270

== ENCOUNTER 2023-03-07 10:18 | Emergency (ER) | payer MEDICARE, OTHER ==
[2023-03-07] MEDS ORDERED: Acetaminophen/oxyCODONE 325-5 MG Tab PO ONE (11:16)
[2023-03-07 18:49] VITALS: BP 96/62; PULSE 81
== END 2023-03-07 11:54 | disposition home or self-care (01) ==
LOC: LL.ED 10:18
DX: S63.285A Dislocation of proximal interphalangeal joint of left ring finger, initial encounter (principal); I25.10 Atherosclerotic heart disease of native coronary artery without angina pectoris; E78.00 Pure hypercholesterolemia, unspecified; I11.0 Hypertensive heart disease with heart failure; I50.9 Heart failure, unspecified; E11.9 Type 2 diabetes mellitus without complications; K21.9 Gastro-esophageal reflux disease without esophagitis; Z79.899 Other long term (current) drug therapy; Z88.5 Allergy status to narcotic agent; W17.89XA Other fall from one level to another, initial encounter
CPT/HCPCS: 73140-F3; 99283; 99284; A9270-GY

== ENCOUNTER 2024-03-31 10:45 | Emergency (ER) | payer OTHER, MEDICARE ==
[2024-03-31] MEDS: Diphtheria,Pertussis(Acell),Tetanus Vaccine 0.5 ML Syringe IM ONE (11:14)
[2024-03-31 12:02] VITALS: BP 127/73; PULSE 63
== END 2024-03-31 11:30 | disposition home or self-care (01) ==
LOC: LL.ED 10:45
DX: S51.812A Laceration without foreign body of left forearm, initial encounter (principal); I25.10 Atherosclerotic heart disease of native coronary artery without angina pectoris; I11.0 Hypertensive heart disease with heart failure; I50.9 Heart failure, unspecified; K21.9 Gastro-esophageal reflux disease without esophagitis; E78.00 Pure hypercholesterolemia, unspecified; M19.90 Unspecified osteoarthritis, unspecified site; E11.9 Type 2 diabetes mellitus without complications; Z95.1 Presence of aortocoronary bypass graft; Z79.82 Long term (current) use of aspirin; Z79.899 Other long term (current) drug therapy; Z88.8 Allergy status to other drugs, medicaments and biological substances; W45.8XXA Other foreign body or object entering through skin, initial encounter
CPT/HCPCS: 90471; 90715; 99282

== ENCOUNTER 2025-09-22 15:32 | Emergency (ER) | payer MEDICARE, OTHER ==
[2025-09-22] MEDS: Orphenadrine 60 MG/2 ML Inj IM ONE (15:49)
[2025-09-22] MEDS: Ketorolac 30 MG/ML SDV IM ONE (15:49)
[2025-09-22] MEDS: Take Home: Acetaminophen/HYDROcodone 325-5 MG, 5 Tab Pack PO ONE (15:50)
[2025-09-22 16:38] VITALS: BP 133/68; PULSE 63
== END 2025-09-22 16:10 | disposition home or self-care (01) ==
LOC: LL.ED 15:32
DX: M15.0 Primary generalized (osteo)arthritis (principal); M54.50 Low back pain, unspecified; I25.10 Atherosclerotic heart disease of native coronary artery without angina pectoris; I13.0 Hypertensive heart and chronic kidney disease with heart failure and stage 1 through stage 4 chronic kidney disease, or unspecified chronic kidney disease; I50.9 Heart failure, unspecified; N18.9 Chronic kidney disease, unspecified; E78.00 Pure hypercholesterolemia, unspecified; Z95.5 Presence of coronary angioplasty implant and graft; Z79.82 Long term (current) use of aspirin; Z79.899 Other long term (current) drug therapy; Z88.8 Allergy status to other drugs, medicaments and biological substances; Z88.5 Allergy status to narcotic agent
CPT/HCPCS: 96372; 99283; A9270-GY; J1885; J2360

== ENCOUNTER 2025-09-24 14:05 | Inpatient (IN) | payer MEDICARE, OTHER ==
[2025-09-24] MEDS: Acetaminophen/oxyCODONE 325-5 MG Tab PO PRN (20:31)
[2025-09-24] MEDS: metFORMIN 500 MG Tab.ER PO SCH (22:57)
[2025-09-26] MEDS: Ondansetron 4 MG Tab.DIS PO PRN (08:07)
[2025-09-27 11:33] LABS: BASOPHILS ABSOLUTE AUTO 0.01 K/uL (0.00-0.20); BASOPHILS PERCENT AUTO 0.1 % (0.0-2.0); EOSINOPHILS ABSOLUTE AUTO 0.12 K/uL (0.00-0.50); EOSINOPHILS PERCENT AUTO 1.6 % (0.0-5.0); IMMATURE GRAN ABSOLUTE AUTO 0.01 10^3/uL (0.00-0.04); IMMATURE GRAN PERCENT AUTO 0.1 % (0.0-0.4); LYMPHOCYTES ABSOLUTE AUTO 0.87 K/uL (0.50-3.50); LYMPHOCYTES PERCENT AUTO 11.6 % (10.0-50.0); MONOCYTES ABSOLUTE AUTO 0.79 K/uL (0.00-1.00); MONOCYTES PERCENT AUTO 10.5 % (2.0-14.0); NEUTROPHILS ABSOLUTE AUTO 5.69 K/uL (1.40-7.00); NEUTROPHILS PERCENT AUTO 76.1 % (45.0-80.0); PLATELET COUNT,PLT 220 K/uL (150-350); RED BLOOD CELL COUNT 4.23 M/uL (4.33-5.41); RED CELL DISTRIBUTION WIDTH 12.2 % (11.2-14.1); WHITE BLOOD CELL COUNT,WBC 7.5 K/uL (4.0-10.2)
[2025-09-27 11:46] LABS: BLOOD UREA NITROGEN,BUN 77.0 mg/dL (7-18); CARBON DIOXIDE,CO2 27.1 mmol/L (21.0-32.0); CHLORIDE,CL 100.0 mmol/L (98-107); EST CRCL DRUG DOSING (CG) 13.68 mL/min; GLUCOSE RANDOM 105.0 mg/dL (70-99); POTASSIUM,K 5.3 mmol/L (3.5-5.1); SODIUM,NA 137.0 mmol/L (136-145)
[2025-09-27 11:55] LABS: CREATININE 4.74 mg/dL (0.51-1.17); ESTIMATED GFR 12.0 mL/min (>=60)
[2025-09-27] MEDS: Heparin Sodium 5,000 Units/ML Vial SUBCUT SCH (13:36)
[2025-09-27 18:15] LABS: BICARBONATE,VENOUS 22 mmol/L (23-28); O2 DELIVERY DEVICE ROOM AIR; O2 SATURATION VENOUS 92 %; PCO2 VENOUS 46 mmHG (41-51); PH,VENOUS 7.28 (7.31-7.41); PO2 VENOUS 71 mmHG
[2025-09-27 18:16] LABS: BASE EXCESS VENOUS -5 mmol/L ((-2)-3)
[2025-09-27 18:19] LABS: BLOOD UREA NITROGEN,BUN 77.0 mg/dL (7-18); CARBON DIOXIDE,CO2 25.9 mmol/L (21.0-32.0); CHLORIDE,CL 102.0 mmol/L (98-107); CREATININE 3.75 mg/dL (0.51-1.17); EST CRCL DRUG DOSING (CG) 17.29 mL/min; ESTIMATED GFR 16.0 mL/min (>=60); GLUCOSE RANDOM 134.0 mg/dL (70-99); POTASSIUM,K 5.2 mmol/L (3.5-5.1); SODIUM,NA 137.0 mmol/L (136-145)
[2025-09-27] MEDS ORDERED: LORazepam 2 MG/ML SDV IVPUSH ONE (19:29)
[2025-09-27 19:34] VITALS: PULSE 83
[2025-09-27 19:35] VITALS: BP 147/68
== END 2025-09-27 22:11 | DRG 554 ==
LOC: LL.MS 14:05 → UNDOADMOB 17:06 → OBSVTOIN 09-25 14:05
PROVIDERS: ADMIT Family Medicine; ATTEND Family Medicine
DX: M16.12 Unilateral primary osteoarthritis, left hip (principal); R26.2 Difficulty in walking, not elsewhere classified; I13.0 Hypertensive heart and chronic kidney disease with heart failure and stage 1 through stage 4 chronic kidney disease, or unspecified chronic kidney disease; N17.9 Acute kidney failure, unspecified; N18.9 Chronic kidney disease, unspecified; J43.1 Panlobular emphysema; M19.90 Unspecified osteoarthritis, unspecified site; J30.9 Allergic rhinitis, unspecified; H91.90 Unspecified hearing loss, unspecified ear; H54.7 Unspecified visual loss; I50.9 Heart failure, unspecified; N40.0 Benign prostatic hyperplasia without lower urinary tract symptoms; G89.29 Other chronic pain; F17.200 Nicotine dependence, unspecified, uncomplicated; R25.2 Cramp and spasm; E78.00 Pure hypercholesterolemia, unspecified; I11.0 Hypertensive heart disease with heart failure; M54.9 Dorsalgia, unspecified; I25.10 Atherosclerotic heart disease of native coronary artery without angina pectoris; E78.5 Hyperlipidemia, unspecified; K21.9 Gastro-esophageal reflux disease without esophagitis; Z88.8 Allergy status to other drugs, medicaments and biological substances; Z79.82 Long term (current) use of aspirin; Z90.49 Acquired absence of other specified parts of digestive tract; Z98.890 Other specified postprocedural states; Z79.84 Long term (current) use of oral hypoglycemic drugs; Z79.899 Other long term (current) drug therapy
CPT/HCPCS: 36415; 72131; 72192; 80048; 82803; 82947; 85025; 99223-GT; 99233-GT; 99239-GT; A9270-GY; J1630; J1644; J2270; J7030; J7040; Q3014